=== PATIENT | female | born 1940 | race Caucasian/White ===

== ENCOUNTER 2017-06-05 12:25 | Inpatient (IN) | payer MEDICARE, MEDICAID ==
[~2017-06-05] VITALS: Ht 152.4 cm; Wt 44.9 kg
--- NOTE | 2017-06-05 12:47 | NUR ---
BIB FAMILY C/O FEELING WEAK, DIZZY AND NAUSEATED X 3 DAYS, NAD NOTED, VSS, RESP EVEN AND UNLABORED, WAITING FOR MD MOISE.
[2017-06-05 13:16] LABS: BASOPHILS % (AUTO) 0.3 % (0.0-2.0); EOSINOPHILS % (AUTO) 0.2 % (0.0-6.0); HEMATOCRIT 39 % (33-45); HEMOGLOBIN 13.3 g/dL (11.5-14.8); LYMPHOCYTES # (AUTO) 1.7 /CMM (0.8-4.8); LYMPHOCYTES % (AUTO) 27.4 % (20.0-44.0); MEAN CORPUSCULAR HEMOGLOBIN 30 PG (26.0-33.0); MEAN CORPUSCULAR HGB CONC 34 g/dl (31.0-36.0); MEAN CORPUSCULAR VOLUME 88 fL (82-100); MONOCYTES # (AUTO) 0.3 /CMM (0.1-1.30); MONOCYTES % (AUTO) 5.1 % (2.0-12.0); NEUTROPHILS # (AUTO) 4.1 /CMM (1.8-8.9); PLATELET COUNT (AUTO) 257 /CMM (150-450); RDW COEFFICIENT OF VARIATION 14.1 (11.5-15.0); WHITE BLOOD COUNT (AUTO) 6.1 K/uL (4.3-11.0)
[2017-06-05 13:26] LABS: INR 0.95 (0.87-1.13); PROTHROMBIN TIME 9.9 SECS (9.5-12.7)
[2017-06-05 13:28] LABS: ALANINE AMINOTRANSFERASE 20 U/L (12-78); ALBUMIN 3.8 g/dL (3.4-5.0); ALKALINE PHOSPHATASE 53 U/L (46-116); ASPARTATE AMINOTRANSFERASE 11 U/L (15-37); BILIRUBIN,DIRECT 0.3 mg/dL (0.0-0.2); BILIRUBIN,TOTAL 1.7 mg/dL (0.2-1.0); CALCIUM, SERUM 9.3 mg/dL (8.5-10.1); CARBON DIOXIDE 20 mmol/L (21-32); CHLORIDE 99 mmol/L (98-107); CREATININE 0.7 mg/dL (0.6-1.3); SODIUM SERUM 134 mmol/L (136-145); TOTAL PROTEIN, SERUM 7.5 g/dL (6.4-8.2); UREA NITROGEN, BLOOD 23 mg/dL (7-18)
[2017-06-05] MEDS ORDERED: MAG HYDROX/AL HYDROX/SIMETH 30 ML UDC ONE (13:28)
[2017-06-05 13:29] LABS: GLUCOSE 408 mg/dL (74-106)
[2017-06-05] MEDS ORDERED: ACETAMINOPHEN 325 MG TABLET ONE (13:29)
[2017-06-05 13:30] LABS: TROPONIN I < 0.017 ng/mL (0.00-0.056)
[2017-06-05] MEDS ORDERED: IV NS 0.9% 1,000 ML BAG IV ONE (13:30)
[2017-06-05] MEDS ORDERED: INSULIN REGULAR, HUMAN 100 UNIT/ML 10 ML VIAL SQ ONE (13:30)
[2017-06-05] MEDS ORDERED: ACETAMINOPHEN 325 MG TABLET PO ONE (13:30)
[2017-06-05] MEDS ORDERED: MAG HYDROX/AL HYDROX/SIMETH 30 ML UDC PO ONE (13:30)
[2017-06-05] MEDS ORDERED: INSULIN REGULAR, HUMAN 100 UNIT/ML 10 ML VIAL ONE (13:35)
[2017-06-05] MEDS ORDERED: ROSU5TAB PO (13:37)
[2017-06-05] MEDS ORDERED: METO25TA6 PO (13:37)
[2017-06-05] MEDS ORDERED: METF500T PO (13:37)
--- NOTE | 2017-06-05 15:11 | NUR ---
REPORT TO KYLIE.
[2017-06-05] MEDS ORDERED: INSU100V9 SQ (15:13)
--- NOTE | 2017-06-05 16:28 | NUR ---
RN NOTES RECEIVED FROM ER AT 3:30 PM A 77 YEAR OLD FEMALE ACCOMPANIED BY SON WITH CC OF DIZZINESS FOR 3 DAYS PRIOR TO ADMISSION. PLACED COMFORTABLY ON BED. DENIES HEADACHE BUT STILL WITH DIZZINESS. NO PAIN. WITH IV ACCESS ON LEFT FOREARM GG 20 PATENT AND INTACT. ROUTINE ADMISSION CARE DONE. VITAL SIGNS TAKEN AND RECORDED. SKIN CHECK DONE, INTACT. REMINDED TO USE CALL LIGHT IF ASSISTANCE IS NEEDED. EXPLAINED ABOUT SAFETY PRECAUTION. NOTIFIED DR ALVARADO FOR ADMITTING ORDERS. KEPT COMFORTABLE.
[2017-06-05] MEDS ORDERED: ACETAMINOPHEN 325 MG TABLET PO PRN (17:30)
[2017-06-05] MEDS ORDERED: ZOLPIDEM TARTRATE 5 MG TABLET PO PRN (17:30)
[2017-06-05] MEDS ORDERED: HYDROCODONE/APAP 5/325MG 1 EACH TABLET PO PRN (17:30)
[2017-06-05] MEDS ORDERED: Z GUARD REMEDY 2 OZ OINT TP PRN (17:30)
[2017-06-05] MEDS ORDERED: MAG HYDROX/AL HYDROX/SIMETH 30 ML UDC PO PRN (17:30)
[2017-06-05] MEDS ORDERED: MAGNESIUM HYDROXIDE 30 ML UDC PO PRN ×2 (17:30→21:00)
[2017-06-05] MEDS ORDERED: DEXTROSE 50%-WATER 50 ML DISP.SYRIN IV PRN (17:30)
[2017-06-05] MEDS: IV NS 0.9% 1,000 ML IV PRN (17:40)
[2017-06-05] MEDS: BLOOD SUGAR DIAGNOSTIC 1 EACH STRIP IN SCH ×2 (17:40→21:18)
[2017-06-05] MEDS: PANTOPRAZOLE 40 MG VIAL IV SCH (18:31)
[2017-06-05] MEDS: METFORMIN 500 MG TABLET PO SCH (18:31)
[2017-06-05] MEDS: *INSULIN REGULAR(HUMULIN R)HUM 100 UNIT/ML VIAL SQ PRN ×2 (18:33→21:32)
--- NOTE | 2017-06-05 18:36 | NUR ---
RN NOTES RESTING FAIRLY WITH NO COMPLAINT AT THIS TIME. NEEDS ANTICIPATED. NO UNTOWARD SYMPTOM NOTED WITHIN THE SHIFT. WILL ENDORSE TO PLASTERER SPOT NURSE FOR CONTINUITY OF CARE.
[2017-06-05] MEDS: INSULIN REGULAR, HUMAN 100 UNIT/ML 3 ML VIAL SQ PRN (19:23)
--- NOTE | 2017-06-05 19:40 | NUR ---
ASSISTANT GUEST SERVICES MANAGER INITIAL NOTES REPORT WAS RECEIVED FROM DAY NURSE, FAMILY AT BEDSIDE. NO SIGNS OF SOB OR DISTRESS. BREATHING EVENLY AND UNLABORED ON ROOM AIR. PT COMPLAINTS OF NAUSEA AND DIZZINESS, MEDS TO BE GIVEN. TELE MONITOR SHOWING SR 76. IV ACCESS IS INTACT AND PATENT WITH FLUIDS INFUSING. BED ALARM IS ON. BED IS IN LOW AND LOCKED POSITION, CALL LIGHT WITHIN REACH. WILL CONTINUE TO MONITOR TO PT.
[2017-06-05] MEDS: MECLIZINE HCL 25 MG TABLET PO SCH (19:57)
[2017-06-05 20:00] VITALS: BP 136/69
[2017-06-05] MEDS ORDERED: MECLIZINE HCL 25 MG TABLET PO SCH (21:00)
[2017-06-05] MEDS: ONDANSETRON HCL/PF 4 MG/2 ML VIAL IVP PRN (21:37)
[2017-06-06] VITALS (8 sets, daily range): BP systolic 127–155; BP diastolic 55–65
--- NOTE | 2017-06-06 00:28 | NUR ---
telephone triage nurse notes contacted dr ray in regards to patients hr of 44-46 with pr interval of 46 and showing 1st degree block. dr ray said no further action is needed
[2017-06-06] MEDS ORDERED: MECLIZINE HCL 25 MG TABLET ONE (05:28)
[2017-06-06] MEDS: MECLIZINE HCL 25 MG TABLET PO SCH ×3 (05:31→21:37)
[2017-06-06] MEDS: BLOOD SUGAR DIAGNOSTIC 1 EACH STRIP IN SCH ×4 (06:09→21:38)
[2017-06-06] MEDS: INSULIN REGULAR, HUMAN 100 UNIT/ML 3 ML VIAL SQ PRN ×2 (06:13→12:03)
[2017-06-06] MEDS: IV NS 0.9% 1,000 ML IV PRN ×2 (06:43→21:38)
--- NOTE | 2017-06-06 06:46 | NUR ---
LAND CONSERVATION SPECIALIST CLOSING NOTES PT IS IN BED AWAKE AND ALERT. NO SIGNS OF SOB OR DISTRESS. DIZZINESS HAS IMPROVED. TELE MONITOR SHOWING SB 46. IV IS INTACT AND PATENT INFUSING WITH NS @ 75 ML/HR. ALL NEEDS WERE ANTICIPATED AND MET. WILL ENDORSE TO DAY SHIFT.
[2017-06-06 07:19] LABS: BASOPHILS % (AUTO) 0.3 % (0.0-2.0); EOSINOPHILS % (AUTO) 0.1 % (0.0-6.0); HEMATOCRIT 37 % (33-45); HEMOGLOBIN 12.8 g/dL (11.5-14.8); LYMPHOCYTES # (AUTO) 1.6 /CMM (0.8-4.8); LYMPHOCYTES % (AUTO) 17.5 % (20.0-44.0); MEAN CORPUSCULAR HEMOGLOBIN 31 PG (26.0-33.0); MEAN CORPUSCULAR HGB CONC 35 g/dl (31.0-36.0); MEAN CORPUSCULAR VOLUME 89 fL (82-100); MONOCYTES # (AUTO) 0.4 /CMM (0.1-1.30); NEUTROPHILS # (AUTO) 7.1 /CMM (1.8-8.9); NEUTROPHILS % (AUTO) 78.1 % (43.0-81.0); PLATELET COUNT (AUTO) 238 /CMM (150-450); RDW COEFFICIENT OF VARIATION 13.6 (11.5-15.0); RED BLOOD CELL COUNT(AUTO) 4.13 MIL/uL (4.0-5.2); WHITE BLOOD COUNT (AUTO) 9.1 K/uL (4.3-11.0)
[2017-06-06] MEDS: ONDANSETRON HCL/PF 4 MG/2 ML VIAL IVP PRN (07:35)
[2017-06-06 07:37] LABS: CHOLESTEROL 117 mg/dL (<200); HDL CHOLESTEROL 41 mg/dL (40-60); LDL 54 mg/dL (0-99); TRIGLYCERIDES 185 mg/dL (30-150)
[2017-06-06 07:38] LABS: IRON, SERUM 66 ug/dl (50-175); TOTAL IRON BINDING CAPACITY 241 ug/dl (250-450)
[2017-06-06 07:42] LABS: CALCIUM, SERUM 8.2 mg/dL (8.5-10.1); CREATININE 0.6 mg/dL (0.6-1.3); GLUCOSE 265 mg/dL (74-106); PHOSPHORUS 3.6 mg/dL (2.5-4.9); UREA NITROGEN, BLOOD 14 mg/dL (7-18)
[2017-06-06 07:59] LABS: CARBON DIOXIDE 22 mmol/L (21-32); CHLORIDE 103 mmol/L (98-107); POTASSIUM 4.1 mmol/L (3.5-5.1); SODIUM SERUM 135 mmol/L (136-145)
--- NOTE | 2017-06-06 08:07 | NUR ---
HVAC TECHNICIAN RESIDENTIAL OPENING NOTES PATIENT IS ALERT AND ORIENTED. PATIENT IS NAUSEAS AND RECEIVED 4MG/2ML OF ZOFRAN IVP PRN. WILL CONTINUE TO MONITOR FOR NAUSEA AND VOMITING. BED IS LOCKED AND LOWERED.
[2017-06-06] MEDS: METFORMIN 500 MG TABLET PO SCH ×2 (09:14→17:02)
[2017-06-06] MEDS: glipiZIDE 5 MG TABLET PO SCH ×2 (09:25→17:02)
[2017-06-06] MEDS: LOSARTAN POTASSIUM 50 MG TABLET PO SCH (12:21)
--- NOTE | 2017-06-06 12:33 | NUR ---
PT'S SON,RONA ARRIVED AND DISCUSSED THE PACEMAKER PLACEMENT PROCEDURE FOR TOMORROW BY DR BAXTER.RONA STATED THAT HE WILL THINK ABOUT IT.
[2017-06-06] MEDS: PANTOPRAZOLE 40 MG VIAL IV SCH (18:27)
--- NOTE | 2017-06-06 18:51 | NUR ---
HAND REAMER CLOSING NOTES PATIENT IS ALERT AND ORIENTED. SON AND DAUGHTER ARE AT BEDSIDE. BED IS LOCKED AND LOWERED. BEDSIDE RAILS ARE UP X2. WILL ENDORSE CARE TO PRIMER PRESS OPERATOR NURSE FOR VIDYA.
--- NOTE | 2017-06-06 19:00 | NUR ---
PLASTIC SHEETING CUTTER OPENING NOTES PATIENT RESTING IN BED A/O X 3, NO ACUTE DISTRESS NOTED. BREATHING EVEN AND UNLABORED, NO SOB NOTED. SAFETY MEASURES IN PLACE, BED LOCKED AND IN LOWEST POSITION, CALL LIGHT IN REACH. WILL CONTINUE TO MONITOR.
[2017-06-06] MEDS: *INSULIN REGULAR(HUMULIN R)HUM 100 UNIT/ML VIAL SQ PRN (21:47)
[2017-06-07] VITALS (8 sets, daily range): BP systolic 131–156; BP diastolic 62–75
[2017-06-07] MEDS: glipiZIDE 5 MG TABLET PO SCH ×2 (07:30→18:03)
[2017-06-07] MEDS: BLOOD SUGAR DIAGNOSTIC 1 EACH STRIP IN SCH ×4 (07:30→21:31)
--- NOTE | 2017-06-07 08:00 | NUR ---
ENGINEER AND GEOLOGIST OPENING NOTES PATIENT IS ALERT AND ORIENTED. PT IS RESTING IN BED. BEDSIDE RAILS ARE UP X2. BED IS LOCKED AND LOWERED. PATIENT IS NPO SINCE MIDNIGHT. AWAITING PACEMAKER SURGERY TODAY AT 1230. INFORMED CONSENT IS SIGNED. WILL CONTINUE TO MONITOR.
--- NOTE | 2017-06-07 08:45 | NUR ---
AUTOMATIC MOUNTER NOTES SPOKE TO DR. BAXTER. IS AWARE THAT PATIENT HAD AN EPISODE OF SECOND DEGREE HEART BLOCK DURING GROUND CONTROL APPROACH TECHNICIAN. PATIENT IS SCHEDULED FOR PACEMAKER SURGERY TODAY AT 1230.
[2017-06-07] MEDS: LOSARTAN POTASSIUM 50 MG TABLET PO SCH (09:00)
[2017-06-07] MEDS: METFORMIN 500 MG TABLET PO SCH ×2 (09:00→18:02)
[2017-06-07] MEDS: IV NS 0.9% 1,000 ML IV PRN ×2 (09:40→21:33)
--- NOTE | 2017-06-07 09:47 | NUR ---
MACHINE SETTER SHEET METAL NOTES SPOKE WITH SURGERY TEAM. THE WILL COME AND TAKE THE PATIENT TO SURGERY AT AROUND 1215. IV ON LEFT AC #20. PATIENT IS AWAKE AND ALERT.
[2017-06-07] MEDS: MECLIZINE HCL 25 MG TABLET PO SCH ×2 (12:22→21:30)
--- NOTE | 2017-06-07 12:30 | NUR ---
PATIENT WAS TAKEN TO OR FOR PACEMAKER PLACEMENT.
[2017-06-07] MEDS ORDERED: LIDOCAINE 1% INJ 50 ML MDV IJ ONE (12:34)
[2017-06-07] MEDS ORDERED: IOHEXOL 50 ML IV ONE (12:34)
[2017-06-07 12:46] LABS: CARBON DIOXIDE 24 mmol/L (21-32); CHLORIDE 108 mmol/L (98-107); CREATININE 0.4 mg/dL (0.6-1.3); GLUCOSE 165 mg/dL (74-106); MAGNESIUM 1.7 mg/dL (1.8-2.4); PHOSPHORUS 3.4 mg/dL (2.5-4.9); POTASSIUM 3.5 mmol/L (3.5-5.1); SODIUM SERUM 141 mmol/L (136-145); UREA NITROGEN, BLOOD 8 mg/dL (7-18)
[2017-06-07] MEDS ORDERED: FENTANYL PF 100MCG/2ML AMPUL ONE (12:47)
[2017-06-07] MEDS ORDERED: MIDAZOLAM HCL 2 MG/2ML VIAL ONE (12:47)
[2017-06-07] MEDS ORDERED: Magnesium 1GM/D5W 100ML PREMIX 100 ML IV SCH (14:05)
--- NOTE | 2017-06-07 14:20 | NUR ---
PT ARRIVED BACK FROM OR. PATIENT IS AWAKE AND ALERT. PATIENT IS STABLE. VITAL SIGNS ARE WNL. WILL CONTINUE TO MONITOR.
[2017-06-07 15:04] LABS: ALANINE AMINOTRANSFERASE 18 U/L (12-78); ALBUMIN 3.2 g/dL (3.4-5.0)
[2017-06-07] MEDS: Magnesium 1GM/D5W 100ML PREMIX 100 ML IV SCH ×2 (15:26→15:50)
--- NOTE | 2017-06-07 15:30 | NUR ---
CLARIFIED MG IV ORDERS (DOUBLE ENTRY) OF 2 BAGS WITH A TOTAL OF [address] ALVARADO WHO STATED THAT 2 BAGS OF MG IS ENOUGH AND CARRIED OUT.
[2017-06-07 15:36] LABS: ASPARTATE AMINOTRANSFERASE 14 U/L (15-37); BILIRUBIN,TOTAL 1.3 mg/dL (0.2-1.0); TOTAL PROTEIN, SERUM 6.3 g/dL (6.4-8.2)
[2017-06-07 15:47] LABS: ALKALINE PHOSPHATASE 40 U/L (46-116)
[2017-06-07] MEDS: POTASSIUM CHLORIDE 20 MEQ TAB.PRT.SR PO SCH ×2 (15:50→18:01)
[2017-06-07] MEDS: METOPROLOL TARTRATE 50 MG TABLET PO SCH ×2 (15:55→21:30)
[2017-06-07] MEDS ORDERED: POTASSIUM CHLORIDE 20 MEQ TAB.PRT.SR PO SCH (18:00)
[2017-06-07] MEDS: PANTOPRAZOLE 40 MG VIAL IV SCH (18:33)
--- NOTE | 2017-06-07 18:46 | NUR ---
EMPLOYEE COMMUNICATIONS MANAGER CLOSING NOTES PT IS ALERT AND AWAKE. IN NO APPARENT DISTRESS. BEDSIDE RAILS ARE UP X2. BED IS LOCKED AND LOWERED. WILL ENDORSE CARE TO READING INTERVENTIONIST NURSE FOR VIDYA.
--- NOTE | 2017-06-07 19:00 | NUR ---
LANDSCAPE CREW LEADER OPENING NOTES PATIENT RESTING IN BED A/O X 3, NO ACUTE DISTRESS NOTED. BREATHING EVEN AND UNLABORED, NO SOB NOTED. ATTACH TO TELE MONITOR, SAFETY MEASURES IN PLACE, BED LOCKED AND IN LOWEST POSITION, CALL LIGHT IN REACH. WILL CONTINUE TO MONITOR.
[2017-06-07] MEDS: *INSULIN REGULAR(HUMULIN R)HUM 100 UNIT/ML VIAL SQ PRN (21:38)
[2017-06-08] VITALS: BP 144/73
[2017-06-08 04:00] VITALS: BP 134/64
[2017-06-08] MEDS: MECLIZINE HCL 25 MG TABLET PO SCH ×2 (05:26→13:00)
[2017-06-08] MEDS: BLOOD SUGAR DIAGNOSTIC 1 EACH STRIP IN SCH ×2 (05:31→12:53)
[2017-06-08] MEDS: INSULIN REGULAR, HUMAN 100 UNIT/ML 3 ML VIAL SQ PRN ×2 (05:32→13:09)
--- NOTE | 2017-06-08 06:33 | NUR ---
MISDRAW HAND CLOSING NOTES PATIENT COMFORTABLY IN BED ASLEEP AND EASILY AWAKEN, HEAD OF BED ELEVATED FOR BETTER LUNG EXPANSION AND BETTER CIRCULATION, ATTACH TO TELE MONITOR, ALERT AND VERBALLY X 4 RESPONSIVE DENIES PAIN OR DISTRESS, TOLERATING ROOM AIR 02 SAT AT 98% NS RUNNING AT 100 MLS/ HR, TOLERATED WELL. IV SITE INTACT WITH NO S/S OF INFILTRATION NOTED. RESPONDS APPROPRIATELY TO VERBAL STIMULI, RESPIRATIONS EVEN UNLABORED BREATH SOUNDS. GOOD SKIN CARE PROVIDED. PATIENT IN STABLE CONDITION WITH NO SOB NO S/S OF DISTRESS NO NAUSEA AND VOMITING NO HEADACHE NO PAIN, NO COMPLAIN OF CHEST PAIN THROUGHOUT THE SHIFT. SAFE HAZARD FREE ENVIRONMENT. NEEDS ATTENDED AND ANTICIPATED, NURSING CARE RENDERED, KEPT CLEAN AND DRY AND COMFORTABLE. ALL DUE MEDS WAS GIVEN. FREQUENT VISUAL CHECK EVERY 2 HOURS, BED LOWERED AND LOCKED, SR X2 FOR SAFETY AND WILL ENDORSE CONTINUE PLAN OF CARE.
[2017-06-08 07:07] VITALS: BP 126/76
--- NOTE | 2017-06-08 07:35 | NUR ---
RN/TELE OPENING NOTES RECEIVED PT. IN BED A&OX4. BREATHING UNLABORED, AND EVENLY ON ROOM AIR. NO S/S OF ACUTE DISTRESS. IV FLUIDS RUNNING AT 100 ML/HR. PT. HAS A LEFT WOUNDS DRESSING ON LEFT CHEST POST-OP PERMANENT PACEMAKER PLACEMENT. PT. IS WEARING TELE MONITOR, READING IS V-PACING AT 81 BPM. PT. IS WEARING A LEFT ARM SLING TO KEEP LEFT ARM IMMOBILE POST SURGERY. BED IS IN LOWEST LOCKED POSITION, 2 SIDE RAILS UP, AND INSTRUCTED PT. TO USE CALL LIGHT FOR ASSISTANCE. WILL CONTINUE TO ASSESS AND MONITOR.
[2017-06-08 08:00] VITALS: BP 145/71
[2017-06-08] MEDS ORDERED: GABA-532 PO (08:21)
[2017-06-08] MEDS ORDERED: METF500T4 PO (08:21)
[2017-06-08] MEDS ORDERED: GLIP5TAB13 PO (08:21)
[2017-06-08] MEDS ORDERED: METO-306 PO (08:21)
[2017-06-08] MEDS: glipiZIDE 5 MG TABLET PO SCH (08:49)
[2017-06-08] MEDS: LOSARTAN POTASSIUM 50 MG TABLET PO SCH (08:49)
[2017-06-08 08:50] VITALS: BP 145/71
[2017-06-08] MEDS: METOPROLOL TARTRATE 50 MG TABLET PO SCH (08:50)
[2017-06-08] MEDS: METFORMIN 500 MG TABLET PO SCH (11:00)
--- NOTE | 2017-06-08 15:30 | NUR ---
RN NOTES DISCHARGE PT. WAS DISCHARGE HOME IN MEDICALLY STABLE CONDITION. PT. LEFT IN WHEEL CHAIR WITH FAMILY ALONG SIDE BY PRIVATE CAR. PT. WENT HOME WITH LEFT CHEST WALL PERMANENT PACEMAKER IMPLANT, AND ARM SLING ON LEFT ARM. ID BAND AND IV WAS REMOVED WITHOUT COMPLICATIONS. PT. AND FAMILY WAS PROVIDED DISCHARGE EDUCATION, AND INSTRUCTIONS ON PACEMAKER, MEDICATIONS AND VERBALIZED UNDERSTANDING. PT.'S PRESCRIPTION WAS CALLED IN BY CHARGE NURSE, AND FAMILY CONFIRMED THEY WILL SPORTS MANAGEMENT INTERNSHIP. ALL QUESTIONS WERE ANSWERED. DR. BAXTER'S INFORMATION WAS PROVIDED FOR FOLLOW UP.
== END 2017-06-08 16:00 | disposition home or self-care (01) | DRG 243 ==
LOC: ER 12:29 → MED 15:20 → TELE 20:16 → MED 06-08 08:36
PROVIDERS: ADMIT Internal Medicine; ATTEND Internal Medicine
PROC: 02H63JZ Insertion of Pacemaker Lead into Right Atrium, Percutaneous Approach (ICD-10-PCS; 2017-06-07)
PROC: 02HK3JZ Insertion of Pacemaker Lead into Right Ventricle, Percutaneous Approach (ICD-10-PCS; 2017-06-07)
PROC: 0JH606Z Insertion of Pacemaker, Dual Chamber into Chest Subcutaneous Tissue and Fascia, Open Approach (ICD-10-PCS; principal; 2017-06-07 13:08)
DX: I49.5 Sick sinus syndrome (principal); I44.2 Atrioventricular block, complete; E44.0 Moderate protein-calorie malnutrition; E11.65 Type 2 diabetes mellitus with hyperglycemia; E87.1 Hypo-osmolality and hyponatremia; Z68.1 Body mass index [BMI] 19.9 or less, adult; E83.42 Hypomagnesemia; Z91.81 History of falling; R74.0 Nonspecific elevation of levels of transaminase and lactic acid dehydrogenase [LDH]; G90.8 Other disorders of autonomic nervous system; Z79.84 Long term (current) use of oral hypoglycemic drugs
CPT/HCPCS: 36415; 70450-TC; 71010-TC; 76700-TC; 80048-TC; 80053-TC; 80061-TC; 80076-TC; 82962-TC; 83540-TC; 83735-TC; 84100-TC; 84443-TC; 84484-TC; 85025-TC; 85730-TC; 93307-TC; A4565; A4606; C9113; J0690; J1815; J2250; J2405; J2704; J3010; J3475; J3490; J7030; J8597; Q9967; Z7610

== ENCOUNTER 2017-07-16 09:31 | Outpatient (CLI) | payer MEDICARE, MEDICAID ==
[~2017-07-16 09:31] MED LIST: GABA-532 PO; GLIP5TAB13 PO; METF500T PO; METF500T4 PO; METO-306 PO; ROSU5TAB PO
[2017-07-16 10:19] LABS: CARBON DIOXIDE 28 mmol/L (21-32); CHLORIDE 103 mmol/L (98-107); CREATININE 0.9 mg/dL (0.6-1.3); GLUCOSE 255 mg/dL (74-106); POTASSIUM 5.2 mmol/L (3.5-5.1); SODIUM SERUM 139 mmol/L (136-145); UREA NITROGEN, BLOOD 22 mg/dL (7-18)
[2017-07-16 10:24] LABS: CHOLESTEROL 141 mg/dL (<200); HDL CHOLESTEROL 52 mg/dL (40-60); LDL 67 mg/dL (0-99); TRIGLYCERIDES 172 mg/dL (30-150)
[2017-07-16 10:26] LABS: CALCIUM, SERUM 10.8 mg/dL (8.5-10.1)
== END 2017-07-16 23:59 | disposition home or self-care (01) ==
LOC: LAB 09:31
PROVIDERS: ATTEND Internal Medicine Interventional Cardiology
DX: I10 Essential (primary) hypertension (principal); E11.9 Type 2 diabetes mellitus without complications; E78.5 Hyperlipidemia, unspecified
CPT/HCPCS: 36415; 80048-TC; 80061-TC; 82040-TC

== ENCOUNTER 2019-01-19 20:30 | Inpatient (IN) | payer MEDICARE, MEDICAID ==
[~2019-01-19] VITALS: Ht 152.4 cm; Wt 54.2 kg
[~2019-01-19 20:30] MED LIST changes: +METF-440 PO; -METF500T4 PO; -METO-306 PO; +METO-358 PO
--- NOTE | 2019-01-19 20:50 | NUR ---
BIB SON REPORTED HER SYSTOLIC BP WAS LOW AT HOME (<100) AND HAD HR >100. HAD PACE MAKE PLACEMENT ON MAY 2019 BY SAHIL CARR. POOR APPETITE. OCCASIONAL DIZZINESS, PLACED ON MONITOR, WILL CONT TO MONITOR ,
--- NOTE | 2019-01-19 20:54 | NUR ---
AT THE BED SIDE
--- NOTE | 2019-01-19 21:12 | NUR ---
20G PIV STARTED ON R HAND. BLOOD DRAWN AND SENT TO THE LAB
[2019-01-19 21:18] LABS: BASOPHILS # (AUTO) 0.1 /CMM (0.0-0.2); BASOPHILS % (AUTO) 0.6 % (0.0-2.0); EOSINOPHILS % (AUTO) 0.7 % (0.0-6.0); HEMATOCRIT 42 % (33-45); HEMOGLOBIN 14.5 g/dL (11.5-14.8); LYMPHOCYTES # (AUTO) 2.2 /CMM (0.8-4.8); LYMPHOCYTES % (AUTO) 24.1 % (20.0-44.0); MEAN CORPUSCULAR HGB CONC 35 g/dl (31.0-36.0); MEAN CORPUSCULAR VOLUME 88 fL (82-100); MONOCYTES # (AUTO) 0.5 /CMM (0.1-1.30); MONOCYTES % (AUTO) 5.4 % (2.0-12.0); NEUTROPHILS # (AUTO) 6.2 /CMM (1.8-8.9); NEUTROPHILS % (AUTO) 69.2 % (43.0-81.0); PLATELET COUNT (AUTO) 261 /CMM (150-450); RED BLOOD CELL COUNT(AUTO) 4.75 MIL/uL (4.0-5.2)
[2019-01-19 21:39] LABS: ALANINE AMINOTRANSFERASE 17 U/L (12-78); ALBUMIN 3.7 g/dL (3.4-5.0); ALKALINE PHOSPHATASE 76 U/L (46-116); ASPARTATE AMINOTRANSFERASE 14 U/L (15-37); B-TYPE NATRIURETIC PEPTIDE 1298 PG/ML (0-125); BILIRUBIN,DIRECT 0.1 mg/dL (0.0-0.2); BILIRUBIN,TOTAL 1.2 mg/dL (0.2-1.0); CALCIUM, SERUM 9.2 mg/dL (8.5-10.1); CARBON DIOXIDE 24 mmol/L (21-32); CHLORIDE 99 mmol/L (98-107); CREATININE 0.7 mg/dL (0.6-1.3); POTASSIUM 4.3 mmol/L (3.5-5.1); SODIUM SERUM 134 mmol/L (136-145); UREA NITROGEN, BLOOD 17 mg/dL (7-18)
[2019-01-19 21:41] LABS: GLUCOSE 369 mg/dL (74-106)
--- NOTE | 2019-01-19 21:48 | NUR ---
CALLED [facility] REGARDING CX READING. AWAITING FINAL RESULTS.
[2019-01-19] MEDS ORDERED: INSULIN REGULAR, HUMAN 100 UNIT/ML 10 ML VIAL ONE (22:25)
--- NOTE | 2019-01-19 22:27 | NUR ---
[facility] PAGED, EVALUATION ANALYST
[2019-01-19] MEDS ORDERED: INSULIN REGULAR, HUMAN 100 UNIT/ML 10 ML VIAL SQ ONE (22:30)
--- NOTE | 2019-01-19 22:37 | NUR ---
TELE 328-6
--- NOTE | 2019-01-19 22:50 | NUR ---
CALLED TO GIVE REPORT. RN NOT AVAILABLE. WILL TRY AGAIN
[2019-01-19] MEDS ORDERED: ASPIRIN 81 MG TAB.CHEW ONE (22:57)
[2019-01-19] MEDS ORDERED: ASPIRIN 81 MG TAB.CHEW PO ONE (23:00)
[2019-01-19 23:15] VITALS: BP 122/76
--- NOTE | 2019-01-19 23:18 | NUR ---
PT WAS TRANSFERRED TO [place] [id number] IN STABLE CONDITION UNDER ACLS PROTOCOL
[2019-01-19 23:25] VITALS: BP 122/76
[2019-01-19] MEDS ORDERED: ONDANSETRON HCL/PF 4 MG/2 ML VIAL IVP PRN (23:30)
[2019-01-19] MEDS ORDERED: ZOLPIDEM TARTRATE 5 MG TABLET PO PRN (23:30)
[2019-01-19] MEDS ORDERED: HYDROCODONE/APAP 5/325MG 1 EACH TABLET PO PRN (23:30)
[2019-01-19] MEDS ORDERED: Z GUARD REMEDY 2 OZ OINT TP PRN (23:30)
[2019-01-19] MEDS ORDERED: MAGNESIUM HYDROXIDE 30 ML UDC PO PRN (23:30)
[2019-01-19] MEDS ORDERED: ACETAMINOPHEN 325 MG TABLET PO PRN (23:30)
[2019-01-19] MEDS ORDERED: MAG HYDROX/AL HYDROX/SIMETH 30 ML UDC PO PRN (23:30)
--- NOTE | 2019-01-19 23:55 | NUR ---
RN NOTES ADMITTED A 78 Y/O FEMALE PATIENT, FROM ER TRANSPORTED VIA GURNEY, ALERT ORIENTED X 4, CALM ACCOMPANIED BY HER SON RONA, PATIENT IS BARBADIAN / MALTESE SPEAKING AND UNDERSTAND SOME SINHALA. NO SIGNS OF ACUTE CARDIAC / RESPIRATORY DISTRESS, DR. MENESES IS IN IN THE UNIT, INITIAL ADMISSION ASSESSMENT, SKIN ASSESSMENT DONE, PATIENT C/O ABDOMINAL PAIN, LAST BM WAS 01/19/19 IN THE MORNING, REPOSITIONED FOR COMFORT, SKIN IS INTACT, ORIENTED TO UNIT AND ROOM AND THE USE OF CALL LIGHT. SAFETY MEASURES IN PLACE. WILL MONITOR ACCORDINGLY.
[2019-01-20] MEDS ORDERED: *INSULIN REGULAR(HUMULIN R)HUM 100 UNIT/ML VIAL SQ PRN (00:30)
[2019-01-20] MEDS ORDERED: DEXTROSE 50%-WATER 50 ML DISP.SYRIN IV PRN (00:30)
[2019-01-20] MEDS: PANTOPRAZOLE 40 MG TABLET.DR PO SCH ×2 (00:54→07:30)
[2019-01-20] MEDS: IV 1/2NS 1000 ML 1,000 ML IV SCH ×2 (00:57→14:55)
--- NOTE | 2019-01-20 02:00 | NUR ---
RN NOTES PATIENT MOVED FROM ROOM 328-1 TO 313-2.
[2019-01-20 04:00] VITALS: BP 114/61
[2019-01-20 04:31] VITALS: BP 114/61
--- NOTE | 2019-01-20 06:00 | NUR ---
RN NOTES PATIENT IS SLEEPING COMFORTABLY, ALL NEEDS ATTENDED AND MET, KEPT CLEAN WARM DRY AND COMFORTABLE, TROPONIN LEVEL FROM 0.086 TO 0.158, MD MADE AWARE, NO ORDERS AT THIS TIME. NO SIGNS OF APPARENT DISTRESS, TELE MONITOR READS SINUS VPACING 118 - 120. SAFETY MEASURES IN PLACE. CALL LIGHT WITHIN EASY REACH.
[2019-01-20 06:45] LABS: BASOPHILS % (AUTO) 0.5 % (0.0-2.0); EOSINOPHILS % (AUTO) 0.7 % (0.0-6.0); HEMATOCRIT 38 % (33-45); HEMOGLOBIN 13.4 g/dL (11.5-14.8); LYMPHOCYTES # (AUTO) 2.6 /CMM (0.8-4.8); LYMPHOCYTES % (AUTO) 31.3 % (20.0-44.0); MEAN CORPUSCULAR HGB CONC 36 g/dl (31.0-36.0); MEAN CORPUSCULAR VOLUME 86 fL (82-100); MONOCYTES # (AUTO) 0.5 /CMM (0.1-1.30); MONOCYTES % (AUTO) 5.8 % (2.0-12.0); NEUTROPHILS # (AUTO) 5.1 /CMM (1.8-8.9); NEUTROPHILS % (AUTO) 61.7 % (43.0-81.0); PLATELET COUNT (AUTO) 262 /CMM (150-450); RED BLOOD CELL COUNT(AUTO) 4.37 MIL/uL (4.0-5.2); WHITE BLOOD COUNT (AUTO) 8.2 K/uL (4.3-11.0)
[2019-01-20 07:03] LABS: CHOLESTEROL 212 mg/dL (<200); HDL CHOLESTEROL 35 mg/dL (40-60); LDL 134 mg/dL (0-99); THYROID STIMULATING HORMONE 2.348 uIU/mL (0.358-3.74); TRIGLYCERIDES 283 mg/dL (30-150)
[2019-01-20 07:09] LABS: CALCIUM, SERUM 8.3 mg/dL (8.5-10.1); CARBON DIOXIDE 22 mmol/L (21-32); CHLORIDE 104 mmol/L (98-107); CREATININE 0.6 mg/dL (0.6-1.3); GLUCOSE 143 mg/dL (74-106); MAGNESIUM 1.8 mg/dL (1.8-2.4); PHOSPHORUS 3.7 mg/dL (2.5-4.9); POTASSIUM 3.7 mmol/L (3.5-5.1); SODIUM SERUM 138 mmol/L (136-145); UREA NITROGEN, BLOOD 13 mg/dL (7-18)
--- NOTE | 2019-01-20 07:30 | NUR ---
RN NOTES PATIENT IS RESTING COMFORTABLY, NO APPARENT DISTRESS NOTED, ENDORSED TO AM NURSE FOR CONTINUITY OF CARE.
--- NOTE | 2019-01-20 07:30 | NUR ---
TELE/RN OPENING NOTE THE PATIENT IS RECEIVED IN BED. ALERT AND ORIENTED X4. ABLE TO MAKE NEEDS KNOWN VERBALLY. IN ROOM AIR AND DENIES SOB. RESPIRATION REGULAR AND UNLABORED. DENIES PAIN. RIGHT HAND G 20 1/2 NS INFUSING AT 75ML/HR AND NO S/S INFILTRATION. BED LOW AND LOCKED. SIDE RAILS UP X3. CALL LIGHT WITHIN REACH. WILL CONTINUE TO MONITOR.
[2019-01-20 08:00] VITALS: BP 133/63
[2019-01-20] MEDS ORDERED: GLIP5TAB13 PO (08:42)
[2019-01-20] MEDS ORDERED: ROSU10TA2 PO (08:42)
[2019-01-20] MEDS: ASPIRIN 81 MG TAB.CHEW PO SCH (09:00)
[2019-01-20] MEDS: BLOOD SUGAR DIAGNOSTIC 1 EACH STRIP VI SCH ×4 (09:15→21:18)
--- NOTE | 2019-01-20 09:15 | NUR ---
TELE/RN NOTE BLOOD SUGAR IS 178 BUT THE PATIENT REFUSED INSULIN. EXPLAINED RISKS AND BENEFITS BUT THE PATIENT REFUSED.
[2019-01-20] MEDS ORDERED: METOPROLOL SUCCINATE 50 MG TAB.SR.24H PO SCH (11:30)
[2019-01-20] MEDS ORDERED: K PHOS NEUTRAL 250 MG TABLET PO ONE (12:00)
[2019-01-20] MEDS: INSULIN REGULAR, HUMAN 100 UNIT/ML 3 ML VIAL SQ PRN ×2 (12:18→17:42)
[2019-01-20] MEDS: GABAPENTIN 100 MG CAPSULE PO SCH ×2 (12:20→17:16)
[2019-01-20] MEDS: METOPROLOL SUCCINATE 50 MG TAB.SR.24H PO SCH (12:26)
--- NOTE | 2019-01-20 14:00 | NUR ---
TELE/RN NOTE DR BAXTER WERE MADE AWARE THAT THE PATIENT`S HR HAS EPISODES OF GOING HIGH 200. DR BAXTER SAID HE WILL ARRANGE PACEMAKER INTERROGATION. NO OTHER ORDERS.
[2019-01-20 16:00] VITALS: BP 106/61
--- NOTE | 2019-01-20 18:13 | NUR ---
TELE/RN CLOSING NOTE THE PATIENT ALERT AND ORIENTED X4. IN ROOM AIR AND DENIES SOB. RESPIRATION REGULAR AND UNLABORED. DENIES PAIN. THE PATIENT IN NO APPARENT DISTRESS. EXTERNAL TELE BOX READING IS SR 92 V PACING. RIGHT HAND G 20 PATENT AND 1/2 NS INFUSING AT 75ML/HR AND NO S/S INFILTRATION NOTED. BED LOW AND LOCKED. SIDE RAILS UP X3. CALL LIGHT WITHIN REACH. WILL ENDORSE TO SUPERVISOR CORE DRILLING.
--- NOTE | 2019-01-20 19:40 | NUR ---
FLIGHT SURGEON OPENING NOTES RECEIVED PATIENT IN BED AWAKE, ALERT AND ORIENTED X3, VERBALLY RESPONSIVE, ABLE TO MAKE NEEDS KNOWN. BREATHING EVEN AND UNLABORED. NO SOB NOTED. TOLERATING ROOM AIR. CURRENTLY WITH NO COMPLAINTS OF PAIN OR DISCOMFORT. NO FACIAL GRIMACING. DENIES CHEST PAIN. IV ON RIGHT HAND INTACT AND PATENT WITH IVF INFUSING. SKIN DRY AND WARM TO TOUCH. AFEBRILE. ALL OTHER NEEDS MET. SAFETY MEASURES IN PLACE. CALL LIGHT WITHIN REACH. WILL CONTINUE TO MONITOR.
[2019-01-20 20:21] VITALS: BP 127/66
[2019-01-20] MEDS ORDERED: INSULIN GLARGINE, 100 UNIT/ML CARTRIDGE SQ SCH (22:00)
--- NOTE | 2019-01-20 22:59 | NUR ---
MARRIAGE THERAPIST NOTES PAGED DR. MARIN TO RELAY TROPONIN RESULT OF 0.332. ELEVATED FROM PREVIOUS ONE OF 0.158. PATIENT IS SLEEPING IN BED. DENIES CHEST PAIN. SR 87 WITH OCCASIONAL PVC ON TELE MONITOR. BP 112/61 HR 87. AWAITING CALL BACK FROM MD. WILL CONTINUE TO MONITOR.
[2019-01-20 23:13] LABS: APPEARANCE,URINE Clear (CLEAR); BILIRUBIN,URINE Negative (NEGATIVE); BLOOD, URINE Negative Ery/uL (NEGATIVE); COLOR,URINE Yellow (YELLOW); KETONES,URINE Negative (NEGATIVE); LEUKOCYTE ESTERASE ,URINE Negative (NEGATIVE); NITRITE, URINE Negative (NEGATIVE); PROTEIN,URINE Negative (NEGATIVE); UGLUCOSE 100 MG/DL mg/dL (NEGATIVE); UROBILINOGEN,URINE 0.2 EU/dL (0.2)
--- NOTE | 2019-01-20 23:20 | NUR ---
SEC ACCOUNTANT NOTES DR. MARIN PAGED BACK. INFORMED OF ELEVATED TROPONIN WITH NO NEW ORDERS. JUST MONITOR.
[2019-01-21 00:22] VITALS: BP 126/70
[2019-01-21] MEDS: IV 1/2NS 1000 ML 1,000 ML IV SCH ×2 (02:50→08:28)
--- NOTE | 2019-01-21 02:51 | NUR ---
MABEL SHANE NOTES NON ADMINISTERED THE IV FLUIDS SCHEDULED AT 309. THERE IS CURRENTLY A BAG INFUSING. WILL CHANGE WHEN FINISHED. Addendum: 01/21/19 at 0657 by CAIT NGUYEN RN ERROR; PT IS TELE.
[2019-01-21 04:19] VITALS: BP 114/65
[2019-01-21] MEDS: BLOOD SUGAR DIAGNOSTIC 1 EACH STRIP VI SCH ×2 (06:30→12:25)
[2019-01-21] MEDS: INSULIN REGULAR, HUMAN 100 UNIT/ML 3 ML VIAL SQ PRN ×2 (06:31→13:42)
--- NOTE | 2019-01-21 06:57 | NUR ---
CANT HOOKER CLOSING NOTES PATIENT RESTING IN BED. NO ACUTE CHANGES THROUGHOUT SHIFT. BREATHING EVEN AND UNLABORED. NO SOB NOTED. TOLERATING ROOM AIR. CURRENTLY WITH NO COMPLAINTS OF PAIN OR DISCOMFORT. IV ON RIGHT HAND INTACT AND PATENT WITH IVF INFUSING. ALL OTHER NEEDS MET. SAFETY MEASURES IN PLACE. CALL LIGHT WITHIN REACH. WILL ENDORSE TO ONCOMING NURSE FOR VIDYA.
--- NOTE | 2019-01-21 07:00 | NUR ---
RN OPENING NOTES PT AWAKE AND RESTING IN BED. NO COMPLAINTS OF PAIN, SOB OR DISTRESS AT THIS TIME. PT TELE MONITORED SINUS JANET VPACING. PT HAS RIGHT HAND #20 INTACT AND RUNNING 1/2NS @ 75ML/HR. SAFETY PRECAUTIONS IN PLACE, BED IN LOWEST LOCKED POSITION, X2 SIDE RAILS UP AND CALL LIGHT WITHIN REACH. WILL CONTINUE TO MONITOR.
[2019-01-21 07:42] LABS: CALCIUM, SERUM 8.5 mg/dL (8.5-10.1); CARBON DIOXIDE 24 mmol/L (21-32); CHLORIDE 104 mmol/L (98-107); CREATININE 0.6 mg/dL (0.6-1.3); GLUCOSE 208 mg/dL (74-106); POTASSIUM 3.9 mmol/L (3.5-5.1); SODIUM SERUM 138 mmol/L (136-145); UREA NITROGEN, BLOOD 10 mg/dL (7-18)
[2019-01-21 08:00] VITALS: BP 114/64
[2019-01-21] MEDS: ASPIRIN 81 MG TAB.CHEW PO SCH (08:28)
[2019-01-21] MEDS: PANTOPRAZOLE 40 MG TABLET.DR PO SCH (08:28)
[2019-01-21] MEDS: GABAPENTIN 100 MG CAPSULE PO SCH ×2 (08:29→13:42)
[2019-01-21] MEDS ORDERED: ATORVASTATIN 10 MG TABLET PO SCH (09:00)
[2019-01-21 11:30] VITALS: BP 112/56
[2019-01-21] MEDS: METOPROLOL SUCCINATE 50 MG TAB.SR.24H PO SCH (11:30)
--- NOTE | 2019-01-21 14:55 | NUR ---
ON LINE CSR NOTES PT STABLE AT DISCHARGE. ALL DISCHARGE PAPERWORK, EXPLAINED, SIGNED AND COPIED. ID AND IV REMOVED. PT SON RONA TAKING PATIENT HOME IN PRIVATE CAR. ALL PATIENT BELONGINGS TAKEN WITH PATIENT.
== END 2019-01-21 14:55 | disposition home or self-care (01) | DRG 282 ==
LOC: ER 20:33 → TELE 22:49 → MED 01-21 10:29
PROVIDERS: ADMIT Student in an Organized Health Care Education/Training Program; ATTEND Nurse Practitioner Acute Care
DX: I49.5 Sick sinus syndrome (principal); I21.A1 Myocardial infarction type 2; E86.0 Dehydration; E78.5 Hyperlipidemia, unspecified; E11.65 Type 2 diabetes mellitus with hyperglycemia; I10 Essential (primary) hypertension; K21.9 Gastro-esophageal reflux disease without esophagitis; Z95.0 Presence of cardiac pacemaker; Z91.14 Patient's other noncompliance with medication regimen; Z79.4 Long term (current) use of insulin; K52.9 Noninfective gastroenteritis and colitis, unspecified; Z87.440 Personal history of urinary (tract) infections; Z79.84 Long term (current) use of oral hypoglycemic drugs; R10.9 Unspecified abdominal pain
CPT/HCPCS: 36415; 71045-TC; 76700-TC; 80048-TC; 80061-TC; 80076-TC; 81000-TC; 82962-TC; 83605-TC; 83690-TC; 83735-TC; 83880; 84100-TC; 84443-TC; 84484-TC; 85025-TC; 85378-TC; 87040-TC; 87081-TC; 93307-TC; G0378; J1815; J3490; J7030

== ENCOUNTER 2019-09-25 21:31 | Inpatient (IN) | payer MEDICARE, MEDICAID ==
[~2019-09-25] VITALS: Ht 160 cm; Wt 52.2 kg
[~2019-09-25 21:31] MED LIST changes: -GLIP5TAB13 PO; -METF-440 PO; +ROSU10TA2 PO; -ROSU5TAB PO
--- NOTE | 2019-09-25 22:31 | NUR ---
PT CAME TO ER BED 8 C/O LEFT HIP PAIN. PATIENT STATES THAT SHE HAD TRIPPED OVER A SMALL STONE AND FELL FORWARD. LEFT LEG SHORTENING COMPARED TO THE RIGHT LEG. BILATERAL PEDAL PULSE STRONG AND EQUAL. PATIENT STAES SHE DID NOT HIT HER HEAD, NOR LOSS CONSCIOUSNESS. PT IS AAOX4. NO SOB. BREATHING EVENLY AND UNLABORED ON ROOM AIR.
[2019-09-25] MEDS ORDERED: ONDANSETRON HCL/PF 4 MG/2 ML VIAL IVP ONE (23:00)
[2019-09-25] MEDS ORDERED: MORPHINE SULFATE INJ 2 MG/ML DISP.SYRIN IV ONE (23:00)
[2019-09-25 23:03] LABS: LYMPHOCYTES # (AUTO) 0.7 /CMM (0.8-4.8); MEAN CORPUSCULAR HGB CONC 34 g/dl (31.0-36.0); NEUTROPHILS # (AUTO) 17.8 /CMM (1.8-8.9); NEUTROPHILS % (AUTO) 92.2 % (43.0-81.0)
[2019-09-25 23:06] LABS: BASOPHILS % (AUTO) 0.2 % (0.0-2.0); HEMATOCRIT 40 % (33-45); HEMOGLOBIN 13.8 g/dL (11.5-14.8); LYMPHOCYTES % (AUTO) 3.5 % (20.0-44.0); MEAN CORPUSCULAR VOLUME 88 fL (82-100); MONOCYTES # (AUTO) 0.8 /CMM (0.1-1.30); MONOCYTES % (AUTO) 4.1 % (2.0-12.0); PLATELET COUNT (AUTO) 263 /CMM (150-450); RED BLOOD CELL COUNT(AUTO) 4.61 MIL/uL (4.0-5.2); WHITE BLOOD COUNT (AUTO) 19.4 K/uL (4.3-11.0)
[2019-09-25] MEDS ORDERED: ONDANSETRON HCL/PF 4 MG/2 ML VIAL ONE (23:08)
[2019-09-25] MEDS ORDERED: MORPHINE SULFATE INJ 4 MG/ML DISP.SYRIN ONE (23:08)
--- NOTE | 2019-09-25 23:14 | NUR ---
BLOOD DRAWN AND SENT WITH SURVEY OPERATIONS DIRECTOR
[2019-09-25 23:15] LABS: ALBUMIN 3.9 g/dL (3.4-5.0); BILIRUBIN,DIRECT 0.1 mg/dL (0.0-0.2); CALCIUM, SERUM 9.6 mg/dL (8.5-10.1); CREATININE 0.8 mg/dL (0.6-1.3); POTASSIUM 4.5 mmol/L (3.5-5.1); TOTAL PROTEIN, SERUM 8.3 g/dL (6.4-8.2)
--- NOTE | 2019-09-25 23:24 | NUR ---
BED 308-9
--- NOTE | 2019-09-25 23:39 | NUR ---
URINE COLLECTED AND SENT TO LAB
[2019-09-25 23:40] LABS: APPEARANCE,URINE Cloudy (CLEAR); BILIRUBIN,URINE Negative (NEGATIVE); BLOOD, URINE Small Ery/uL (NEGATIVE); COLOR,URINE Light yellow (YELLOW); KETONES,URINE 15 (NEGATIVE); LEUKOCYTE ESTERASE ,URINE Small (NEGATIVE); NITRITE, URINE Negative (NEGATIVE); PH,URINE 5.5 (5.0-8.0); PROTEIN,URINE 100 mg/dl (NEGATIVE); UGLUCOSE >=1000 mg/dL (NEGATIVE); UROBILINOGEN,URINE 0.2 EU/dL (0.2)
--- NOTE | 2019-09-25 23:43 | NUR ---
REPORT GIVEN TO FEDERICO MONROE FOR VIDYA.
--- NOTE | 2019-09-25 23:56 | NUR ---
XRAY AT BEDSIDE
[2019-09-26] MEDS ORDERED: TEMAZEPAM 15 MG CAPSULE PO PRN
[2019-09-26] MEDS ORDERED: Z GUARD REMEDY 2 OZ OINT TP PRN
[2019-09-26] MEDS ORDERED: ACETAMINOPHEN 325 MG TABLET PO PRN
[2019-09-26] MEDS ORDERED: MAG HYDROX/AL HYDROX/SIMETH 30 ML UDC PO PRN
[2019-09-26] MEDS ORDERED: MAGNESIUM HYDROXIDE 30 ML UDC PO PRN
[2019-09-26] MEDS ORDERED: DEXTROSE 50%-WATER 50 ML DISP.SYRIN IV PRN
[2019-09-26] MEDS ORDERED: ONDANSETRON HCL/PF 4 MG/2 ML VIAL IVP PRN
[2019-09-26 00:13] LABS: BACTERIA,URINE Many /HPF (None Seen); SQUAMOUS EPITHELIAL CELL,UR Few /HPF (None Seen); WBC,URINE TOO NUMEROUS TO COUN /HPF (0-3)
[2019-09-26] MEDS ORDERED: CEFTRIAXONE 1 G in IV D5W 50 ML IV SCH (00:30)
[2019-09-26 01:10] VITALS: BP 159/80
[2019-09-26] MEDS: IV NS 0.9% 1,000 ML IV PRN ×2 (01:12→18:16)
[2019-09-26] MEDS ORDERED: CEFTRIAXONE 1 G VIAL ONE (01:29)
[2019-09-26] MEDS: BLOOD SUGAR DIAGNOSTIC 1 EACH STRIP IN SCH ×4 (01:31→17:22)
--- NOTE | 2019-09-26 01:52 | NUR ---
0110 - RECEIVED THIS PATIENT FROM ER VIA GURNEY ACCOMPANIED BY 2 ER STAFF. ADMITTED TO MS 308-2 DUE TO L HIP FRACTURE UNDER THE SERVICE OF RADHA ANGULO. TRANSFERRED TO BED COMFORTABLY WITH 3 PERSON'S ASSIST. PATIENT COMPLAINTS OF SEVERE PAIN ON THE HIP UPON MOBILIZATION. ADMISSION ROUTINE DONE. PATIENT'S BELONGINGS INVENTORY COMPLETED BY THE ASSIGNED EDUCATION COORDINATOR. PATIENT REFUSED TO BY TURNED AND REPOSITION DUE TO PAIN. PATIENT CLAIMED SHE HAS NO SKIN ISSUES IDENTIFIED. WITH FC INSERTED FROM ER, INDWELLING WELL WITH CLEAR YELLOW URINE OUTPUT, KEPT PATIENT ON SUPINE POSITION ON BED COMFORTABLY. ADMISSION ORDERS NOTED AND CARRIED OUT. KEPT ON BED CLEAN, DRY AND COMFORTABLE. CALL LIGHT WITHIN EASY REACH. WILL CONTINUE TO MONITOR ACCORDINGLY.
--- NOTE | 2019-09-26 04:07 | NUR ---
MS RN NOTES Patient refused turning and repositioning despite education provided due to severe pain upon movement of the L hip. Patient verbalized understanding but insisted not to be turned and repositioned. Will continue to monitor accordingly.
[2019-09-26] MEDS: MORPHINE SULFATE INJ 2 MG/ML DISP.SYRIN IV PRN ×2 (05:03→09:19)
[2019-09-26 06:35] LABS: BASOPHILS % (AUTO) 0.2 % (0.0-2.0); HEMATOCRIT 38 % (33-45); HEMOGLOBIN 13.1 g/dL (11.5-14.8); LYMPHOCYTES # (AUTO) 1.2 /CMM (0.8-4.8); LYMPHOCYTES % (AUTO) 9.5 % (20.0-44.0); MEAN CORPUSCULAR HGB CONC 34 g/dl (31.0-36.0); MEAN CORPUSCULAR VOLUME 87 fL (82-100); MONOCYTES # (AUTO) 0.9 /CMM (0.1-1.30); MONOCYTES % (AUTO) 6.7 % (2.0-12.0); NEUTROPHILS # (AUTO) 10.7 /CMM (1.8-8.9); NEUTROPHILS % (AUTO) 83.6 % (43.0-81.0); PLATELET COUNT (AUTO) 256 /CMM (150-450); WHITE BLOOD COUNT (AUTO) 12.8 K/uL (4.3-11.0)
[2019-09-26 06:40] LABS: CALCIUM, SERUM 8.5 mg/dL (8.5-10.1); CREATININE 0.6 mg/dL (0.6-1.3); MAGNESIUM 1.4 mg/dL (1.8-2.4); PHOSPHORUS 3.6 mg/dL (2.5-4.9); POTASSIUM 4.3 mmol/L (3.5-5.1)
--- NOTE | 2019-09-26 06:40 | NUR ---
MS RN CLOSING NOTES Patient asleep, easily awaken. On O2 inhalation via NC @ 2LPM, no SOB/respiratory distress noted. With complaints of pain upon movement of L hip, patient refused turning and repositioning within the shift. All nursing needs attended, due meds given as ordered. Kept on bed clean, dry and comfortable. Call light within easy reach. Endorsed to the next shift.
--- NOTE | 2019-09-26 07:25 | NUR ---
RN OPENING NOTE PT WAS RECEIVED IN BED AT LOWEST AND LOCKED POSITION WITH SIDE RAILS UP X2, A/O X4 SOUTH SUDANESE SPEAKING BREATHING EVEN AND UNLABORED ON 2L VIA NC, NO S/S OF ANY DISTRESS OR PAIN NOTED AT THIS TIME, ZULUAGA IN PLACE AND DRAINING, IV IS PATENT AND INTACT, AWAITING ORTHO CONSULT FOR POSSIBLE SURGERY, SAFETY PRECAUTIONS IN PLACE, CALL LIGHT IN REACH, WILL MONITOR ACCORDINGLY
[2019-09-26] MEDS: Magnesium 1GM/D5W 100ML PREMIX 100 ML IV SCH ×2 (07:45→09:17)
[2019-09-26 08:00] VITALS: BP 137/74
[2019-09-26] MEDS ORDERED: PANTOPRAZOLE 40 MG VIAL IV SCH (09:00)
--- NOTE | 2019-09-26 09:05 | NUR ---
RN NOTE [facility] CALLED AT [phone], SPOKE TO REGARDING PLAN FOR SURGERY, PER MD SURGERY WILL BE DONE SATURDAY AND PT CAN EAT AT THIS TIME.
[2019-09-26] MEDS: ATORVASTATIN 10 MG TABLET PO SCH (09:15)
[2019-09-26] MEDS: GABAPENTIN 100 MG CAPSULE PO SCH ×3 (09:16→17:11)
[2019-09-26] MEDS: METOPROLOL SUCCINATE 50 MG TAB.SR.24H PO SCH (09:16)
[2019-09-26] MEDS: METFORMIN 500 MG TABLET PO SCH ×2 (09:17→17:22)
[2019-09-26] MEDS: ENOXAPARIN SODIUM 30 MG/0.3 ML DISP.SYRIN SQ SCH (09:23)
[2019-09-26] MEDS: INSULIN REGULAR, HUMAN 100 UNIT/ML 3 ML VIAL SQ PRN ×2 (11:42→17:23)
[2019-09-26 16:00] VITALS: BP 98/43
--- NOTE | 2019-09-26 18:22 | NUR ---
RN CLOSING NOTE PT IN BED AT LOWEST AND LOCKED POSITION WITH SIDE RAILS UP X2, A/O X4 BREATHING EVEN AND UNLABORED WITH NO DISTRESS OR PAIN AT THIS TIME, ZULUAGA IN PLACE AND DRAINING WITH 500 ML OUT, IV IS PATENT AND INTACT, SAFETY PRECAUTIONS IN PLACE, CALL LIGHT IN REACH, ALL NEEDS ATTENDED TO, WILL ENDORSE TO NIGHT RN FOR VIDYA.
--- NOTE | 2019-09-26 19:30 | NUR ---
MS RN OPENING NOTE RECEIVED PATIENT IN BED. A/OX 3, CHINESE SPEAKING, ABLE TO MAKE BASIC NEEDS KNOWN. ON OXYGEN 2L.MIN VIA NASAL CANNULA. RESPIRATIONS ARE EVEN AND UNLABORED. NO S/S SOB NOTED. DENIES PAIN AT THIS TIME. IN NO APPARENT DISTRESS. IV ACCESS IN RFA#22 PATENT AND SALINE LOCKED. ZULUAGA CATHETER IS PRESENT, DRAINING TO GRAVITY, URINE IS YELLOW AND CLEAR. BED IS LOW AND LOCKED, HOB ELEVATED IN HIGH FOWLERS, SIDE RAILS UPX2, BED ALARM ON. CALL LIGHT WITHIN REACH. FAMILY AT BEDSIDE. WILL CONTINUE TO MONITOR.
[2019-09-26 20:00] VITALS: BP_SYST 117; BP_DIAS 58; BP_DIAS 77
[2019-09-27] MEDS: CEFTRIAXONE 1 G in IV D5W 50 ML IV SCH ×2 (00:02→23:55)
[2019-09-27] MEDS: BLOOD SUGAR DIAGNOSTIC 1 EACH STRIP IN SCH ×4 (00:02→17:05)
[2019-09-27] MEDS: INSULIN REGULAR, HUMAN 100 UNIT/ML 3 ML VIAL SQ PRN ×4 (00:10→17:10)
[2019-09-27] MEDS: MORPHINE SULFATE INJ 2 MG/ML DISP.SYRIN IV PRN ×2 (00:12→06:04)
--- NOTE | 2019-09-27 00:12 | NUR ---
MS RN NOTE ADMINISTERED PRN MORPHINE 4MG FOR PAIN 10/10 IN LEFT HIP. PATIENTS VITAL SIGNS HAVE ALSO INCREASED. WILL CONTINUE TO MONITOR.
--- NOTE | 2019-09-27 06:04 | NUR ---
MS RN NOTE ADMINISTERED PRN MORPHINE 4MG FOR PAIN 10/10 IN LEFT HIP. WILL CONTINUE TO MONITOR.
--- NOTE | 2019-09-27 06:14 | NUR ---
MS RN NOTE OBTAINED CONSENT FOR SX, ANESTHESIA, AND BLOOD.
[2019-09-27 06:27] LABS: BASOPHILS # (AUTO) 0.1 /CMM (0.0-0.2); BASOPHILS % (AUTO) 0.4 % (0.0-2.0); EOSINOPHILS % (AUTO) 0.1 % (0.0-6.0); HEMATOCRIT 35 % (33-45); HEMOGLOBIN 12.1 g/dL (11.5-14.8); LYMPHOCYTES # (AUTO) 1.8 /CMM (0.8-4.8); LYMPHOCYTES % (AUTO) 11.9 % (20.0-44.0); MEAN CORPUSCULAR HGB CONC 35 g/dl (31.0-36.0); MEAN CORPUSCULAR VOLUME 88 fL (82-100); MONOCYTES # (AUTO) 1.1 /CMM (0.1-1.30); MONOCYTES % (AUTO) 7.4 % (2.0-12.0); NEUTROPHILS # (AUTO) 11.8 /CMM (1.8-8.9); NEUTROPHILS % (AUTO) 80.2 % (43.0-81.0); PLATELET COUNT (AUTO) 230 /CMM (150-450); RED BLOOD CELL COUNT(AUTO) 3.99 MIL/uL (4.0-5.2); WHITE BLOOD COUNT (AUTO) 14.7 K/uL (4.3-11.0)
--- NOTE | 2019-09-27 06:39 | NUR ---
MS RN CLOSING NOTE PATIENT IN BED. A/OX 3, PALAUAN AND YEMENI SPEAKING, ABLE TO MAKE BASIC NEEDS KNOWN. ON OXYGEN 2L/MIN VIA NASAL CANNULA. RESPIRATIONS REMAIN EVEN AND UNLABORED. NO SOB NOTED. MANAGED PAIN WITH MORPHINE 4MG THROUGHOUT SHIFT.NO DISTRESS NOTED. IV ACCESS MAINTAINED IN RFA#22 RUNNING NS@75ML/HR. ZULUAGA CATHETER IS MAINTAINED, DRAINING TO GRAVITY, URINE IS YELLOW OUTPUT 500. BED IS LOW AND LOCKED, HOB ELEVATED IN SEMI FOWLERS, SIDE RAILS UPX2, BED ALARM ON. CALL LIGHT WITHIN REACH. WILL ENDORSE TO NEXT SHIFT.
[2019-09-27 06:41] LABS: ALBUMIN 2.7 g/dL (3.4-5.0); BILIRUBIN,TOTAL 0.9 mg/dL (0.2-1.0); CALCIUM, SERUM 8.4 mg/dL (8.5-10.1); CREATININE 0.9 mg/dL (0.6-1.3); PHOSPHORUS 2.9 mg/dL (2.5-4.9); POTASSIUM 4.2 mmol/L (3.5-5.1); TOTAL PROTEIN, SERUM 6.6 g/dL (6.4-8.2)
[2019-09-27] MEDS: IV NS 0.9% 1,000 ML IV PRN ×2 (06:54→20:31)
--- NOTE | 2019-09-27 07:25 | NUR ---
MS RN NOTES PATIENT RECEIVED IN BED, SLEEPING. ALERT AND ORIENTED X 3, MAINLY TONGAN/MAURITANIAN SPEAKING. PATIENT ON NASAL CANNULA, 2 LITERS, PATIENT PRESENT NO RESPIRATORY DISTRESS, NO SHORTNESS OF BREATH, WITH NON-LABORED BREATHING. PATIENT SKIN WARM AND DRY. IV ACCESS INTACT AND PATENT. PATIENT ZULUAGA IN PLACE, WITH CLEAR, YELLOW URINE. PATIENT PRESENTS NO SIGN OF DISCOMFORT, PROVIDED COMFORT MEASURES. SAFETY PRECAUTIONS IN PLACE WITH BED IN THE LOWEST POSITION, BED ALARM ON, BED LOCKED, BILATERAL SIDE RAILS UP, HEAD OF BED UP IN SEMI-FOWLERS, AND CALL LIGHT WITHIN EASY REACH. WILL CONTINUE TO MONITOR PATIENT.
[2019-09-27 08:00] VITALS: BP 120/65
[2019-09-27] MEDS: METOPROLOL SUCCINATE 50 MG TAB.SR.24H PO SCH (08:21)
[2019-09-27] MEDS: ATORVASTATIN 10 MG TABLET PO SCH (08:21)
[2019-09-27] MEDS: METFORMIN 500 MG TABLET PO SCH ×2 (08:21→16:18)
[2019-09-27] MEDS: ENOXAPARIN SODIUM 30 MG/0.3 ML DISP.SYRIN SQ SCH (08:21)
[2019-09-27] MEDS: GABAPENTIN 100 MG CAPSULE PO SCH ×3 (08:22→16:18)
[2019-09-27 16:00] VITALS: BP 141/80
--- NOTE | 2019-09-27 18:33 | NUR ---
MS RN NOTES PATIENT IN BED RESTING, ALERT AND ORIENTED X 3, MAINLY TAIWANESE AND LATVIAN SPEAKING. PATIENT ON NASAL CANNULA, 2 LITERS, PATIENT PRESENTS NO SOB, NON-LABORED BREATHING, AND NO RESPIRATORY DISTRESS. PATIENT ZULUAGA CATHETER IN PLACE, WITH CLEAR AND YELLOW URINE. PATIENT SKIN KEPT CLEAN AND DRY. SKIN IS INTACT, IV ACCESS KEPT CLEAN, INTACT, AND PATENT. SAFETY PRECAUTIONS IN PLACE, WITH BED IN THE LOWEST POSITION, HEAD OF THE BED IN SEMI-FOWLERS, BED LOCKED, BED ALARM ON, BILATERAL SIDE RAILS UP, AND CALL LIGHT WITH IN EASY REACH. PROVIDED COMFORT MEASURES FOR PATIENT. WILL ENDORSE VIDYA TO UPCOMING NURSE.
--- NOTE | 2019-09-27 19:30 | NUR ---
MS RN OPENING NOTES RECEIVED PATIENT IN BED ALERT AND ORIENTED X 3. VERBALLY RESPONSIVE AND ABLE TO FOLLOW DIRECTIONS. BREATHING REGULAR AND UNLABORED ON OXYGEN AT 2L/MIN VIA NASAL CANNULA. RIGHT FOREARM G22 IV LINE INTACT AND PATENT, INFUSING WELL WITH NO BLEEDING OR S/S OF INFILTRATION NOTED. BODY ASSESSMENT DONE, SKIN REMAINED INTACT CLEAN AND DRY. COMPLAINED OF LEFT HIP PAIN BUT REFUSED PAIN MEDICATION. NON-PHARMACOLOGICAL INTERVENTIONS PROVIDED. BED LOW AND LOCKED ON SEMI FOWLERS POSITION. CALL LIGHT IN REACH. WILL CONTINUE TO MONITOR.
[2019-09-27 20:00] VITALS: BP 152/73
[2019-09-27 20:04] VITALS: BP 152/73
[2019-09-28] VITALS (10 sets, daily range): BP systolic 107–135; BP diastolic 55–76
[2019-09-28] MEDS: BLOOD SUGAR DIAGNOSTIC 1 EACH STRIP IN SCH ×4 (00:03→16:48)
[2019-09-28] MEDS: INSULIN REGULAR, HUMAN 100 UNIT/ML 3 ML VIAL SQ PRN ×3 (00:04→16:44)
--- NOTE | 2019-09-28 00:05 | NUR ---
MS RN NOTES BS 243mG/dl, NO INSULIN COVERAGE GIVEN PATIENT ON NPO FOR SURGERY TOMORROW. WILL CONTINUE TO MONITOR.
[2019-09-28] MEDS: MORPHINE SULFATE INJ 2 MG/ML DISP.SYRIN IV PRN (01:49)
--- NOTE | 2019-09-28 02:05 | NUR ---
MS RN NOTES COMPLAINED OF 9/10 LEFT HIP PAIN, MORPHINE 4MG GIVEN VIA IV PUSH. NON-PHARMACOLOGICAL INTERVENTIONS PROVIDED. VITAL SIGNS WNL. WILL CONTINUE TO MONITOR.
--- NOTE | 2019-09-28 06:15 | NUR ---
MS RN NOTES BS 229mG/dl, NO INSULIN COVERAGE GIVEN PATIENT ON NPO FOR SURGERY TOMORROW. WILL CONTINUE TO MONITOR.
[2019-09-28 06:27] LABS: ALBUMIN 2.4 g/dL (3.4-5.0); CALCIUM, SERUM 8.1 mg/dL (8.5-10.1); CREATININE 0.7 mg/dL (0.6-1.3); MAGNESIUM 1.5 mg/dL (1.8-2.4); PHOSPHORUS 2.9 mg/dL (2.5-4.9); POTASSIUM 4.2 mmol/L (3.5-5.1); TOTAL PROTEIN, SERUM 6.6 g/dL (6.4-8.2)
[2019-09-28 06:36] LABS: BASOPHILS % (AUTO) 0.3 % (0.0-2.0); EOSINOPHILS % (AUTO) 0.1 % (0.0-6.0); HEMATOCRIT 35 % (33-45); LYMPHOCYTES # (AUTO) 1.8 /CMM (0.8-4.8); LYMPHOCYTES % (AUTO) 11.8 % (20.0-44.0); MEAN CORPUSCULAR HGB CONC 34 g/dl (31.0-36.0); MEAN CORPUSCULAR VOLUME 87 fL (82-100); MONOCYTES # (AUTO) 1.3 /CMM (0.1-1.30); MONOCYTES % (AUTO) 8.4 % (2.0-12.0); NEUTROPHILS # (AUTO) 11.9 /CMM (1.8-8.9); NEUTROPHILS % (AUTO) 79.4 % (43.0-81.0); PLATELET COUNT (AUTO) 233 /CMM (150-450); RED BLOOD CELL COUNT(AUTO) 4.07 MIL/uL (4.0-5.2)
--- NOTE | 2019-09-28 06:45 | NUR ---
MS RN CLOSING NOTES PATIENT IN BED ALERT AND ORIENTED X 3. VERBALLY RESPONSIVE AND ABLE TO FOLLOW DIRECTIONS. BREATHING REGULAR AND UNLABORED ON OXYGEN AT 2L/MIN VIA NASAL CANNULA. RIGHT FOREARM G22 IV LINE PATENT AND INFUSING WELL. NO REPORTS OF PAIN/DISCOMFORT AT THIS TIME. ZULUAGA CATH INTACT, DRAINING CLOUDY YELLOW URINE WITH 1100cc OUTPUT. BED LOW AND LOCKED ON SEMI FOWLERS POSITION. CALL LIGHT IN REACH. WILL ENDORSE TO MORNING SHIFT FOR VIDYA.
--- NOTE | 2019-09-28 07:47 | NUR ---
MS RN NOTES. PATIENT IN BED SLEEPING. NO SOB OR ACUTE DISTRESS NOTED. BED IN LOW LOCKED POSITION. CALL LIGHT WITHIN REACH. WILL CONTINUE TO MONITOR.
[2019-09-28] MEDS: Magnesium 1GM/D5W 100ML PREMIX 100 ML IV SCH ×4 (08:37→09:58)
[2019-09-28] MEDS: METFORMIN 500 MG TABLET PO SCH ×2 (09:00→16:42)
[2019-09-28] MEDS: GABAPENTIN 100 MG CAPSULE PO SCH ×3 (09:00→16:42)
[2019-09-28] MEDS: ATORVASTATIN 10 MG TABLET PO SCH (09:00)
[2019-09-28] MEDS: ENOXAPARIN SODIUM 30 MG/0.3 ML DISP.SYRIN SQ SCH (09:00)
[2019-09-28] MEDS: METOPROLOL SUCCINATE 50 MG TAB.SR.24H PO SCH (09:00)
[2019-09-28] MEDS ORDERED: BACITRACIN 50000 UNITS/VIAL ONE (11:26)
[2019-09-28] MEDS ORDERED: BUPIVACAINE 0.5 % PF 150 MG/30 ML VIAL ONE (11:26)
[2019-09-28] MEDS ORDERED: FENTANYL PF 100MCG/2ML AMPUL ONE ×2 (11:28→13:42)
[2019-09-28] MEDS ORDERED: DEXAMETHASONE SOD PHOSPHATE 4 MG/ML VIAL ONE (11:28)
[2019-09-28] MEDS ORDERED: ROCURONIUM BROMIDE 50 MG/5 ML ONE (11:29)
[2019-09-28] MEDS ORDERED: TRANEXAMIC ACID 1,000 MG in SODIUM CHLORIDE IRRIG SOLUTION 90 ML IR ONE (12:30)
[2019-09-28] MEDS: TRANEXAMIC ACID 1,000 MG in IV NS 0.9% 100 ML IV SCH ×2 (13:00→14:00)
[2019-09-28] MEDS ORDERED: HYDROMORPHONE 1 MG/1 ML DISP.SYRIN ONE (13:28)
--- NOTE | 2019-09-28 14:32 | NUR ---
MS RN NOTES PATIENT RETURNED FROM OR IN STABLE CONDITION WILL CONTINUE TO MONITOR.
[2019-09-28] MEDS: IV LR 1000 ML 1,000 ML IV PRN (14:59)
[2019-09-28 15:30] LABS: HEMOGLOBIN 12.4 g/dL (11.5-14.8)
--- NOTE | 2019-09-28 18:44 | NUR ---
MS RN NOTES PATIENT IN BED RESTING NO SOB OR ACUTE DISTRESS NOTED. NO ACUTE CHANGES NOTED DURING SHIFT. PATIENT S/P LEFT HIP HEMIARTHROPLASTY TOLERATED WELL. ALL DUE MEDICATIONS ADMINISTERED. ALL NEEDS MET. WILL ENDORSE CARE TO PM SHIFT.
--- NOTE | 2019-09-28 19:20 | NUR ---
MS RN OPENING NOTES PATIENT RECEIVED RESTING IN BED A/O X3, ANDORRAN/ LATVIAN SPEAKING. PATIENT ON 2L OF O2 VIA NC WITH BREATHING EVEN AND UNLABORED, NO SOB NOTED. NO SIGNS OF ACUTE DISTRESS. NO CURRENT COMPLAINTS OF PAIN OR DISCOMFORT. FAMILY IS AT BEDSIDE. ZULUAGA IN PLACE POST-OP, DRAINING WILL CLEAR YELLOW URINE. IV LOCATED ON R FA #22 RUNNING LS @ 75 ML/HR. SAFETY PRECAUTIONS IN PLACE WITH BED IN LOWEST POSITION, BREAKS ON, CALL LIGHT WITHIN REACH, AND SIDE RAILS UP X2. WILL CONTINUE TO MONITOR.
[2019-09-28] MEDS: CEFAZOLIN 2 GM in IV D5W 100 ML IV SCH (19:51)
[2019-09-29] MEDS: CEFTRIAXONE 1 G in IV D5W 50 ML IV SCH ×2 (00:35→23:50)
[2019-09-29] MEDS: BLOOD SUGAR DIAGNOSTIC 1 EACH STRIP IN SCH ×5 (00:41→23:50)
[2019-09-29] MEDS: INSULIN REGULAR, HUMAN 100 UNIT/ML 3 ML VIAL SQ PRN ×4 (00:43→17:26)
[2019-09-29] MEDS: CEFAZOLIN 2 GM in IV D5W 100 ML IV SCH (04:12)
[2019-09-29] MEDS: IV LR 1000 ML 1,000 ML IV PRN ×2 (05:54→19:41)
[2019-09-29 06:24] LABS: BASOPHILS % (AUTO) 0.2 % (0.0-2.0); HEMATOCRIT 33 % (33-45); HEMOGLOBIN 11.4 g/dL (11.5-14.8); LYMPHOCYTES # (AUTO) 0.9 /CMM (0.8-4.8); LYMPHOCYTES % (AUTO) 4.9 % (20.0-44.0); MEAN CORPUSCULAR HGB CONC 34 g/dl (31.0-36.0); MEAN CORPUSCULAR VOLUME 86 fL (82-100); MONOCYTES # (AUTO) 1.5 /CMM (0.1-1.30); NEUTROPHILS # (AUTO) 15.8 /CMM (1.8-8.9); NEUTROPHILS % (AUTO) 86.9 % (43.0-81.0); PLATELET COUNT (AUTO) 281 /CMM (150-450); RED BLOOD CELL COUNT(AUTO) 3.87 MIL/uL (4.0-5.2); WHITE BLOOD COUNT (AUTO) 18.2 K/uL (4.3-11.0)
--- NOTE | 2019-09-29 06:28 | NUR ---
MS RN CLOSING NOTES PATIENT IN BED ALERT AND ORIENTED X 3, SLOVENIAN SPEAKING. VERBALLY RESPONSIVE AND ABLE TO FOLLOW DIRECTIONS. BREATHING REGULAR AND UNLABORED ON OXYGEN AT 2L/MIN VIA NASAL CANNULA. RIGHT FOREARM G22 IV LINE PATENT AND INFUSING WELL LR @ 75 ML/HR. NO REPORTS OF PAIN/DISCOMFORT AT THIS TIME. ZULUAGA CATH INTACT, DRAINING YELLOW URINE. BED LOW AND LOCKED ON SEMI FOWLERS POSITION. CALL LIGHT IN REACH. ALL NEEDS ATTENDED TO, PATIENT KEPT CLEAN AND DRY THROUGHOUT THE NIGHT. WILL ENDORSE TO ONCOMING SHIFT ABOUT VIDYA.
[2019-09-29 08:00] VITALS: BP 154/73
--- NOTE | 2019-09-29 08:00 | NUR ---
MS RN NOTES PATIENT IN BED RESTING NO SOB OR ACUTE DISTRESS NOTED. PATIENT ALERT, ORIENTED X3. PERIPHERAL IV INTACT PATENT. PATIENT REFUSES PAIN MEDICATIONS STATES SHE IS COMFORTABLE AT THIS MOMENT. BED IS IN LOW LOCKED POSITION. CALL LIGHT WITHIN REACH. WILL CONTINUE TO MONITOR.
[2019-09-29 08:15] LABS: CALCIUM, SERUM 8.6 mg/dL (8.5-10.1); CREATININE 0.8 mg/dL (0.6-1.3); MAGNESIUM 1.8 mg/dL (1.8-2.4); PHOSPHORUS 2.8 mg/dL (2.5-4.9); POTASSIUM 4.3 mmol/L (3.5-5.1)
[2019-09-29] MEDS: GABAPENTIN 100 MG CAPSULE PO SCH ×3 (08:39→17:22)
[2019-09-29] MEDS: METFORMIN 500 MG TABLET PO SCH ×2 (08:39→17:22)
[2019-09-29] MEDS: ATORVASTATIN 10 MG TABLET PO SCH (08:39)
[2019-09-29] MEDS: METOPROLOL SUCCINATE 50 MG TAB.SR.24H PO SCH (08:40)
[2019-09-29] MEDS: HYDROCODONE/APAP 5/325MG 1 EACH TABLET PO PRN ×2 (08:55→13:06)
[2019-09-29] MEDS: ENOXAPARIN SODIUM 40 MG/0.4 ML DISP.SYRIN SQ SCH (11:56)
[2019-09-29 16:00] VITALS: BP 130/60
--- NOTE | 2019-09-29 18:52 | NUR ---
MS RN NOTES PATIENT IN BED RESTING NO SOB OR ACUTE DISTRESS NOTED. ALL DUE MEDICATIONS ADMINISTERED. ALL NEEDS MET. NO ACUTE CHANGES NOTED DURING SHIFT. WILL ENDORSE CARE TO PM SHIFT.
--- NOTE | 2019-09-29 19:30 | NUR ---
MS RN OPENING NOTE RECEIVED PATIENT IN BED. A/OX 3, POLISH/AZERI SPEAKING, ABLE TO MAKE BASIC NEEDS KNOWN. TOLERATING ROOM AIR. RESPIRATIONS ARE EVEN AND UNLABORED. NO S/S SOB NOTED. DENIES PAIN AT THIS TIME. IN NO APPARENT DISTRESS. IV ACCESS IN RFA#22 RUNNING LR@75ML/HR. ZULUAGA CATHETER IS PRESENT, DRAINING TO GRAVITY, URINE IS YELLOW AND CLEAR. BED IS LOW AND LOCKED, HOB ELEVATED IN SEMI FOWLERS, SIDE RAILS UPX2, DVT PUMPS APPLIED, BED ALARM ON. CALL LIGHT WITHIN REACH. FAMILY AT BEDSIDE. WILL CONTINUE TO MONITOR.
[2019-09-29 20:00] VITALS: BP 130/61
[2019-09-30] MEDS: INSULIN REGULAR, HUMAN 100 UNIT/ML 3 ML VIAL SQ PRN ×2 (00:01→06:22)
[2019-09-30] MEDS: HYDROCODONE/APAP 5/325MG 1 EACH TABLET PO PRN ×4 (00:03→15:25)
--- NOTE | 2019-09-30 00:03 | NUR ---
MS RN NOTES ADMINISTERED PRN NORCO 5/325 FOR PAIN 10/10 IN LEFT HIP. WILL CONTINUE TO MONITOR.
[2019-09-30] MEDS: BLOOD SUGAR DIAGNOSTIC 1 EACH STRIP IN SCH (06:19)
[2019-09-30 06:20] LABS: BASOPHILS # (AUTO) 0.1 /CMM (0.0-0.2); BASOPHILS % (AUTO) 0.4 % (0.0-2.0); EOSINOPHILS % (AUTO) 0.3 % (0.0-6.0); HEMATOCRIT 31 % (33-45); HEMOGLOBIN 10.5 g/dL (11.5-14.8); LYMPHOCYTES # (AUTO) 2.2 /CMM (0.8-4.8); LYMPHOCYTES % (AUTO) 14.3 % (20.0-44.0); MEAN CORPUSCULAR HGB CONC 34 g/dl (31.0-36.0); MEAN CORPUSCULAR VOLUME 87 fL (82-100); MONOCYTES # (AUTO) 1.2 /CMM (0.1-1.30); MONOCYTES % (AUTO) 7.7 % (2.0-12.0); NEUTROPHILS # (AUTO) 11.8 /CMM (1.8-8.9); NEUTROPHILS % (AUTO) 77.3 % (43.0-81.0); PLATELET COUNT (AUTO) 272 /CMM (150-450); RED BLOOD CELL COUNT(AUTO) 3.52 MIL/uL (4.0-5.2); WHITE BLOOD COUNT (AUTO) 15.2 K/uL (4.3-11.0)
[2019-09-30 06:32] LABS: CALCIUM, SERUM 8.3 mg/dL (8.5-10.1); CREATININE 0.7 mg/dL (0.6-1.3); MAGNESIUM 1.5 mg/dL (1.8-2.4); POTASSIUM 4.2 mmol/L (3.5-5.1)
--- NOTE | 2019-09-30 06:55 | NUR ---
MS RN CLOSING NOTE PATIENT IN BED. A/OX 3, [place]/CYPRI[place] SPEAKING, ABLE TO MAKE BASIC NEEDS KNOWN. TOLERATING ROOM AIR. RESPIRATIONS ARE EVEN AND UNLABORED. NO SOB NOTED. MANAGED PAIN WITH NORCO 5/325 THROUGHOUT SHIFT. NO DISTRESS NOTED. IV ACCESS MAINTAINED IN RFA#22 RUNNING LR@75ML/HR. ZULUAGA CATHETER WAS REMOVED DURING SHIFT. BED IS LOW AND LOCKED, HOB ELEVATED IN SEMI FOWLERS, SIDE RAILS UPX2, DVT PUMPS ON, BED ALARM ON. CALL LIGHT WITHIN REACH. WILL ENDORSE TO NEXT SHIFT
--- NOTE | 2019-09-30 07:15 | NUR ---
RN OPENING NOTES PATIENT IN BED. A/OX 3, TONGAN/YI SPEAKING, ABLE TO MAKE BASIC NEEDS KNOWN. TOLERATING ROOM AIR. RESPIRATIONS ARE EVEN AND UNLABORED. NO SOB. NOT IN ANY FORM OF DISTRESS. IV ACCESS INTACT AND PATENT. KEPT PATIENT SAFE AND COMFORTABLE. ABDUCTOR PILLOW IN PLACE. BED IS LOW AND LOCKED, HOB ELEVATED IN SEMI FOWLERS, SIDE RAILS UPX2, DVT PUMPS ON, BED ALARM ON. CALL LIGHT WITHIN REACH. WILL CONTINUE TO MONITOR ACCORDINGLY.
[2019-09-30 08:00] VITALS: BP 130/60
[2019-09-30] MEDS ORDERED: MAG30ORA PO (08:15)
[2019-09-30] MEDS ORDERED: *INS REG SQ (08:15)
[2019-09-30] MEDS ORDERED: Blood Sugar Diagnostic IN (08:15)
[2019-09-30] MEDS ORDERED: ACET325T53 PO (08:15)
[2019-09-30] MEDS ORDERED: HYDR-3972 PO (08:15)
[2019-09-30] MEDS ORDERED: MAGN400O6 PO (08:15)
[2019-09-30] MEDS ORDERED: INSU100V28 SQ (08:15)
[2019-09-30] MEDS ORDERED: TEMA15CA5 PO (08:15)
[2019-09-30] MEDS ORDERED: ENOX40DI SQ (08:15)
[2019-09-30] MEDS ORDERED: DEXTROSE 50%-WATER 50 ML DISP.SYRIN IV PRN (08:30)
[2019-09-30] MEDS ORDERED: INSULIN REGULAR, HUMAN 100 UNIT/ML 3 ML VIAL SQ PRN (08:30)
[2019-09-30] MEDS ORDERED: *INSULIN REGULAR(HUMULIN R)HUM 100 UNIT/ML VIAL SQ PRN (08:30)
[2019-09-30] MEDS: GABAPENTIN 100 MG CAPSULE PO SCH ×2 (09:27→13:29)
[2019-09-30] MEDS: METFORMIN 500 MG TABLET PO SCH (09:27)
[2019-09-30 09:28] VITALS: BP 130/60
[2019-09-30] MEDS: METOPROLOL SUCCINATE 50 MG TAB.SR.24H PO SCH (09:28)
[2019-09-30] MEDS: ATORVASTATIN 10 MG TABLET PO SCH (09:30)
[2019-09-30] MEDS: ENOXAPARIN SODIUM 40 MG/0.4 ML DISP.SYRIN SQ SCH (09:30)
[2019-09-30] MEDS: Magnesium 1GM/D5W 100ML PREMIX 100 ML IV SCH ×2 (10:35→11:38)
[2019-09-30] MEDS ORDERED: BLOOD SUGAR DIAGNOSTIC 1 EACH STRIP VI SCH (12:00)
--- NOTE | 2019-09-30 12:42 | NUR ---
Compa Trujillo, at bedside changing left hip dressing. new dressing c/d/i.
--- NOTE | 2019-09-30 16:00 | NUR ---
discharged patient in stable condition picked up by ambulance crew. family at bedside and aware about DC. report given to [facility] nurseKassandra dc instructions given, verbalized understanding. Dc instructions given to patient and family as well, verbalized understanding. iv access removed, tip intact, no complications. name band removed.
== END 2019-09-30 16:00 | DRG 470 ==
LOC: ER 21:35 → MED 09-26 00:59
PROVIDERS: ADMIT Nurse Practitioner Acute Care; ATTEND Registered Nurse
PROC: 0SRS0JZ Replacement of Left Hip Joint, Femoral Surface with Synthetic Substitute, Open Approach (ICD-10-PCS; principal; 2019-09-28)
DX: S72.012A Unspecified intracapsular fracture of left femur, initial encounter for closed fracture (principal); N39.0 Urinary tract infection, site not specified; E87.1 Hypo-osmolality and hyponatremia; N17.9 Acute kidney failure, unspecified; Y92.009 Unspecified place in unspecified non-institutional (private) residence as the place of occurrence of the external cause; W01.0XXA Fall on same level from slipping, tripping and stumbling without subsequent striking against object, initial encounter; E11.51 Type 2 diabetes mellitus with diabetic peripheral angiopathy without gangrene; I10 Essential (primary) hypertension; I25.2 Old myocardial infarction; Z87.440 Personal history of urinary (tract) infections; Z91.14 Patient's other noncompliance with medication regimen; E83.42 Hypomagnesemia; K21.9 Gastro-esophageal reflux disease without esophagitis; Z95.0 Presence of cardiac pacemaker; D72.829 Elevated white blood cell count, unspecified; E88.09 Other disorders of plasma-protein metabolism, not elsewhere classified; E11.65 Type 2 diabetes mellitus with hyperglycemia; B96.89 Other specified bacterial agents as the cause of diseases classified elsewhere; Z79.84 Long term (current) use of oral hypoglycemic drugs
CPT/HCPCS: 36415; 71045-TC; 72170-TC; 73502; 73552; 80048-TC; 80053-TC; 80061-TC; 80076-TC; 81000-TC; 82962-TC; 83690-TC; 83735-TC; 84100-TC; 85025-TC; 85027-TC; 85730-TC; 86850-TC; 87081-TC; 87086-TC; 87186-TC; 88305-TC; 88311-TC; 93307-TC; 97110-TC; 97112-TC; 97530-TC; A4217; C1776; G0378; J0690; J0696; J1100; J1170; J1650; J1815; J2270; J2405; J2704; J2710; J3010; J3475; J3490; J7030; J7060; J7120

== ENCOUNTER 2022-06-27 10:30 | Emergency (ER) | payer MEDICARE, OTHER ==
[~2022-06-27] VITALS: Ht 152.4 cm; Wt 74.8 kg
[~2022-06-27 10:30] MED LIST changes: +*INS REG SQ; +ACET325T53 PO; +Blood Sugar Diagnostic IN; +ENOX40DI SQ; +HYDR-3972 PO; +INSU100V28 SQ; +MAG30ORA PO; +MAGN400O6 PO; +TEMA15CA5 PO
--- NOTE | 2022-06-27 10:37 | NUR ---
BIB RA frm home c/o diffused abdominal pain
[2022-06-27 10:59] LABS: BASOPHILS % (AUTO) 0.4 % (0.0-2.0); EOSINOPHILS % (AUTO) 0.3 % (0.0-6.0); HEMATOCRIT 34 % (33-45); HEMOGLOBIN 11.4 g/dL (11.5-14.8); LYMPHOCYTES # (AUTO) 1.5 K/uL (0.8-4.8); LYMPHOCYTES % (AUTO) 19.4 % (20.0-44.0); MEAN CORPUSCULAR HGB CONC 34 g/dl (31.0-36.0); MEAN CORPUSCULAR VOLUME 89 fL (82-100); MONOCYTES # (AUTO) 0.4 K/uL (0.1-1.30); MONOCYTES % (AUTO) 4.7 % (2.0-12.0); NEUTROPHILS # (AUTO) 5.9 K/uL (1.8-8.9); NEUTROPHILS % (AUTO) 75.2 % (43.0-81.0); PLATELET COUNT (AUTO) 279 K/uL (150-450); RED BLOOD CELL COUNT(AUTO) 3.77 MIL/uL (4.0-5.2); WHITE BLOOD COUNT (AUTO) 7.8 K/uL (4.3-11.0)
--- NOTE | 2022-06-27 11:00 | NUR ---
PHLEB AT BEDSIDE FOR BLOOD DRAW
--- NOTE | 2022-06-27 11:00 | NUR ---
FOLLEY CATHETER PLACED , COLLECTED URINE SAMPLE LABELED AND SENT TO LAB
--- NOTE | 2022-06-27 11:09 | NUR ---
CD MIXER AT BED SIDE
--- NOTE | 2022-06-27 11:15 | NUR ---
TAKEN TO CT
[2022-06-27 11:17] LABS: ALANINE AMINOTRANSFERASE 11 U/L (12-78); ALBUMIN 3.7 g/dL (3.4-5.0); ALKALINE PHOSPHATASE 78 U/L (46-116); ASPARTATE AMINOTRANSFERASE 8 U/L (15-37); BILIRUBIN,DIRECT 0.1 mg/dL (0.0-0.2); BILIRUBIN,TOTAL 0.6 mg/dL (0.2-1.0); CALCIUM, SERUM 9.1 mg/dL (8.5-10.1); CARBON DIOXIDE 20 mmol/L (21-32); CHLORIDE 104 mmol/L (98-107); CREATININE 1.4 mg/dL (0.6-1.3); GLUCOSE 225 mg/dL (74-106); LIPASE 52 U/L (73-393); POTASSIUM 5.1 mmol/L (3.5-5.1); SODIUM SERUM 137 mmol/L (136-145); TOTAL PROTEIN, SERUM 8.1 g/dL (6.4-8.2); UREA NITROGEN, BLOOD 30 mg/dL (7-18)
--- NOTE | 2022-06-27 11:23 | NUR ---
LACTIC ACID 3.0 MD MADE AWARE
[2022-06-27] MEDS ORDERED: IV NS 0.9% 1,000 ML IV ONE (11:30)
--- NOTE | 2022-06-27 11:40 | NUR ---
ESTABLISHED IV LINE LEFT AC 20G
[2022-06-27 11:43] LABS: BILIRUBIN,URINE NEGATIVE (NEGATIVE); COLOR,URINE YELLOW (YELLOW); LEUKOCYTE ESTERASE ,URINE 2+ (NEGATIVE); NITRITE, URINE NEGATIVE (NEGATIVE); PROTEIN,URINE 2+ mg/dl (NEGATIVE); UGLUCOSE TRACE mg/dL (NEGATIVE); UROBILINOGEN,URINE 0.2 EU/dL (0.2)
--- NOTE | 2022-06-27 12:16 | NUR ---
FOLLOWED UP RESULT OF XRAY W/ RADIOLOGY
[2022-06-27 12:42] LABS: BACTERIA,URINE Moderate /HPF (None Seen); SQUAMOUS EPITHELIAL CELL,UR Few /HPF (None Seen); WBC,URINE TOO NUMEROUS TO COUN /HPF (0-3)
[2022-06-27] MEDS ORDERED: SULF1TAB48 PO ×2 (12:51→13:43)
--- NOTE | 2022-06-27 13:15 | NUR ---
F.CATHETER REMOVED ORDERED
--- NOTE | 2022-06-27 14:08 | NUR ---
Patient discharged to home in stable condition. Written and verbal after care instructions given. Patient verbalizes understanding of instruction.
[2022-06-27 14:09] VITALS: BP 134/79
== END 2022-06-27 14:09 | disposition home or self-care (01) ==
LOC: ER 10:44
DX: N39.0 Urinary tract infection, site not specified (principal); R14.0 Abdominal distension (gaseous); R10.84 Generalized abdominal pain; I10 Essential (primary) hypertension; E11.9 Type 2 diabetes mellitus without complications; Z90.89 Acquired absence of other organs; Z88.8 Allergy status to other drugs, medicaments and biological substances; Z79.899 Other long term (current) drug therapy
CPT/HCPCS: 99285; 74176; 96360; 71045; 51701; 85025; 80048; 87086; 83605; 83690; 80076; 87106; 81001; 36415; J7030

== ENCOUNTER 2023-01-17 14:23 | Inpatient (IN) | payer MEDICARE, OTHER ==
[~2023-01-17] VITALS: Ht 152.4 cm; Wt 53.7 kg
[~2023-01-17 14:23] MED LIST changes: +SULF1TAB48 PO
--- NOTE | 2023-01-17 14:30 | NUR ---
BIBRA 889 C/O ABDOMINAL PAIN/ PELVIC PAIN X 1 MONTH, HAS BECOME WORSE. BURNIGN SENSATION OFF PELVIC AREA AND CONSTIPATION. PT STATES THAT SHE HAS HX OF HAVING UTIS AND NOTES DISCOLARATION OF URINE AT TIME. ATTACHED TO MONITOR, VITALS ARE WITHIN NORMAL LIMITS. AWAITING MD MOISE.
--- NOTE | 2023-01-17 14:40 | NUR ---
IV ESTABLISHED R WRIST 20G. SALINE IS LOCKED.
--- NOTE | 2023-01-17 14:55 | NUR ---
URINE COLLECTED AND SENT
[2023-01-17 15:55] LABS: BASOPHILS % (AUTO) 0.4 % (0.0-2.0); EOSINOPHILS % (AUTO) 0.4 % (0.0-6.0); HEMATOCRIT 35 % (33-45); HEMOGLOBIN 11.4 g/dL (11.5-14.8); LYMPHOCYTES # (AUTO) 1.8 K/uL (0.8-4.8); LYMPHOCYTES % (AUTO) 20.1 % (20.0-44.0); MEAN CORPUSCULAR HGB CONC 32 g/dl (31.0-36.0); MEAN CORPUSCULAR VOLUME 92 fL (82-100); MONOCYTES # (AUTO) 0.4 K/uL (0.1-1.30); MONOCYTES % (AUTO) 4.6 % (2.0-12.0); NEUTROPHILS # (AUTO) 6.8 K/uL (1.8-8.9); NEUTROPHILS % (AUTO) 74.5 % (43.0-81.0); PLATELET COUNT (AUTO) 302 K/uL (150-450); RED BLOOD CELL COUNT(AUTO) 3.85 MIL/uL (4.0-5.2); WHITE BLOOD COUNT (AUTO) 9.1 K/uL (4.3-11.0)
[2023-01-17 15:56] LABS: BILIRUBIN,URINE NEGATIVE (NEGATIVE); COLOR,URINE YELLOW (YELLOW); LEUKOCYTE ESTERASE ,URINE 3+ (NEGATIVE); NITRITE, URINE NEGATIVE (NEGATIVE); PROTEIN,URINE 1+ mg/dl (NEGATIVE); UGLUCOSE NEGATIVE (NEGATIVE); UROBILINOGEN,URINE 0.2 EU/dL (0.2)
[2023-01-17 16:14] LABS: POTASSIUM 4.9 mmol/L (3.5-5.1)
[2023-01-17 16:23] LABS: ALBUMIN 3.7 g/dL (3.4-5.0); BILIRUBIN,DIRECT 0.1 mg/dL (0.0-0.2); BILIRUBIN,TOTAL 0.5 mg/dL (0.2-1.0); TOTAL PROTEIN, SERUM 8.9 g/dL (6.4-8.2)
[2023-01-17] MEDS ORDERED: IOHEXOL-300 100 ML VIAL IV ONE (16:32)
[2023-01-17] MEDS ORDERED: IV NS 0.9% 250 ML IV ONE (16:32)
[2023-01-17] MEDS ORDERED: CT SWABBABLE VALVE TRANS SET 1 EA INFUS.SET MC ONE (16:33)
[2023-01-17 16:39] LABS: BACTERIA,URINE 3+ /HPF (None Seen); WBC,URINE 81-100 /HPF (0-3)
[2023-01-17] MEDS ORDERED: CEFTRIAXONE 1 G in IV D5W 50 ML IV ONE (17:30)
[2023-01-17] MEDS ORDERED: CEFTRIAXONE 1GM BAG (ER ONLY) 50 ML IV ONE (17:58)
[2023-01-17] MEDS ORDERED: MORPHINE SULFATE INJ 4 MG/ML DISP.SYRIN ONE (17:58)
[2023-01-17] MEDS ORDERED: MORPHINE SULFATE INJ 2 MG/ML DISP.SYRIN IV ONE (18:00)
[2023-01-17] MEDS ORDERED: IV NS 0.9% 1,000 ML BAG IV ONE (18:00)
--- NOTE | 2023-01-17 18:10 | NUR ---
covid test collected and sent
[2023-01-17] MEDS ORDERED: BENA20TA9 PO (18:32)
[2023-01-17] MEDS ORDERED: METO-358 PO (18:32)
[2023-01-17] MEDS ORDERED: INSU100I24 SQ (18:32)
[2023-01-17] MEDS ORDERED: ERGO500093 PO (18:32)
[2023-01-17] MEDS ORDERED: ASPI-1420 PO (18:32)
--- NOTE | 2023-01-17 19:39 | NUR ---
HowardOx4, Omani speaking, able to express concerns. Haris states she is in pain 8/10, abdominal pain. Discussed plan of care, haris verbalized agreement.
[2023-01-17] MEDS ORDERED: PHENAZOPYRIDINE HCL 200 MG TABLET PO ONE (20:00)
[2023-01-17] MEDS ORDERED: PHENAZOPYRIDINE HCL 200 MG TABLET ONE (20:16)
[2023-01-17] MEDS ORDERED: DEXTROSE 50%-WATER 50 ML DISP.SYRIN IV PRN (21:30)
[2023-01-17] MEDS ORDERED: MAG HYDROX/AL HYDROX/SIMETH 30 ML UDC PO PRN (21:30)
[2023-01-17] MEDS ORDERED: ZOLPIDEM TARTRATE 5 MG TABLET PO PRN (21:30)
[2023-01-17] MEDS ORDERED: MAGNESIUM HYDROXIDE 30 ML UDC PO PRN (21:30)
[2023-01-17] MEDS ORDERED: Z GUARD REMEDY 4 OZ OINT TP PRN (21:30)
--- NOTE | 2023-01-17 21:43 | NUR ---
Report given to CVic/RN 3 alburnett, patient ready for transfer.
[2023-01-17] MEDS: BLOOD SUGAR DIAGNOSTIC 1 EACH STRIP IN SCH (22:00)
--- NOTE | 2023-01-17 22:30 | NUR ---
MS RN OPENING NOTES: RECEIVED PATIENT VIA GURNEY FROM ER AWAKE ON STABLE CONDITION, PLACED IN BED COMFORTABLY, BED IN LOW POSITION, CALL LIGHTS WITHIN REACH, NO COMPLAIN OF PAIN AND DISCOMFORT AT THIS TIME ON ROOM AIR SATURATING WELL, PATIENT IS A/O X3-4 ECUADOREAN SPEAKING, WITH LITTLE KHMER, SKIN ASSESSMENT DONE AND PICTURE TAKEN, INVENTORIES DONE AND SIGNED, IV LINE AT RIGHT HAND#22 WITH ONGOING 0.9NS@ 75ML/HR INFUSING WELL, PATIENT WAS ORIENTED TO ROOM REMIND PATIENT TO USE NEREIDA LIGHTS WHEN NEEDED ASSISTANCE, PATIENT KEPT CLEAN AND DRY ALL NEEDS MET WILL CONTINUE TO MONITOR.
[2023-01-17 23:10] VITALS: BP 109/76
--- NOTE | 2023-01-17 23:12 | NUR ---
RN NOTES: BLOOD SUGAR-94/ NO INSULIN GIVEN PER SLIDING SCALE.
[2023-01-17] MEDS: IV NS 0.9% 1,000 ML IV PRN (23:53)
[2023-01-18] MEDS: MORPHINE SULFATE INJ 2 MG/ML DISP.SYRIN IV PRN (02:28)
[2023-01-18 06:25] LABS: BASOPHILS # (AUTO) 0.1 K/uL (0.0-0.2); BASOPHILS % (AUTO) 0.5 % (0.0-2.0); EOSINOPHILS % (AUTO) 0.6 % (0.0-6.0); HEMATOCRIT 28 % (33-45); HEMOGLOBIN 9.4 g/dL (11.5-14.8); LYMPHOCYTES # (AUTO) 2.3 K/uL (0.8-4.8); MEAN CORPUSCULAR HGB CONC 33 g/dl (31.0-36.0); MEAN CORPUSCULAR VOLUME 89 fL (82-100); MONOCYTES # (AUTO) 0.6 K/uL (0.1-1.30); MONOCYTES % (AUTO) 5.8 % (2.0-12.0); NEUTROPHILS # (AUTO) 6.7 K/uL (1.8-8.9); NEUTROPHILS % (AUTO) 69.1 % (43.0-81.0); PLATELET COUNT (AUTO) 254 K/uL (150-450); RED BLOOD CELL COUNT(AUTO) 3.16 MIL/uL (4.0-5.2); WHITE BLOOD COUNT (AUTO) 9.6 K/uL (4.3-11.0)
--- NOTE | 2023-01-18 06:45 | NUR ---
RN NOTES: BLOOD SUGAR-83/ NO INSULIN GIVEN PER SLIDING SCALE.
--- NOTE | 2023-01-18 06:45 | NUR ---
MS RN CLOSING NOTES: PATIENT SLEEP IN BED COMFORTABLY, AROUSABLE TO VERBAL STIMULI, BED IN LOW POSITION CALL LIGHTS WITHIN REACH, NO COMPLAIN OF PAIN AND DISCOMFORT AT THIS TIME, ON ROOM AIR SATURATING WELL, IV LINE AT RIGHT HAND #20 WITH ONGOING 0.9NSS@75ML/HR INFUSING WELL, PATIENT KEPT CLEAN AND DRY ALL NEEDS MET ENDORSE TO INCOMING SHIFT.
[2023-01-18 06:46] LABS: CALCIUM, SERUM 8.9 mg/dL (8.5-10.1); CREATININE 0.8 mg/dL (0.6-1.3); MAGNESIUM 1.4 mg/dL (1.8-2.4); POTASSIUM 4.7 mmol/L (3.5-5.1)
--- NOTE | 2023-01-18 07:20 | NUR ---
ms rn received patient on bed, awake,alert,oriented x4, macanese speaking lady, came in w/ UTI,complaining of pain upon urination, urine colored selina, pain meds give po. on room air w/ adequate saturation. will monitor patient's condition.
[2023-01-18 07:30] VITALS: BP 140/61
[2023-01-18] MEDS: BLOOD SUGAR DIAGNOSTIC 1 EACH STRIP IN SCH ×4 (07:30→21:28)
[2023-01-18] MEDS: HYDROCODONE/APAP 10/325MG TABLET PO PRN ×2 (09:01→21:22)
[2023-01-18] MEDS: METOPROLOL SUCCINATE 50 MG TAB.SR.24H PO SCH (09:02)
[2023-01-18] MEDS: ASPIRIN EC 81 MG TABLET.DR PO SCH (09:02)
[2023-01-18] MEDS: BENAZEPRIL HCL 20 MG TABLET PO SCH (09:03)
--- NOTE | 2023-01-18 09:30 | NUR ---
ms rubi breakfast served,due meds given,tolerated well, on room air, w/ good saturation noted.
[2023-01-18] MEDS: PHENAZOPYRIDINE HCL 200 MG TABLET PO SCH ×3 (09:38→17:57)
[2023-01-18] MEDS ORDERED: MAGNESIUM OXIDE 400 MG TABLET PO ONE (10:00)
[2023-01-18] MEDS ORDERED: DIATR MEGLU/DIATRIZOATE SODIUM 30 ML BOTTLE (GASTROGRAPHIN) ONE (10:29)
[2023-01-18] MEDS ORDERED: CT SWABBABLE VALVE TRANS SET 1 EA INFUS.SET MC ONE (10:51)
[2023-01-18] MEDS ORDERED: IV NS 0.9% 250 ML IV ONE (10:51)
[2023-01-18] MEDS ORDERED: IOHEXOL-350 100 ML VIAL IV ONE (10:51)
[2023-01-18] MEDS: INSULIN REGULAR, HUMAN 100 UNIT/ML 3 ML VIAL SQ PRN ×3 (13:06→21:27)
--- NOTE | 2023-01-18 13:30 | NUR ---
ms rn was seen by iain nunez np, w/naren made and carriedout.
[2023-01-18] MEDS: IV NS 0.9% 1,000 ML IV PRN (13:48)
[2023-01-18 16:00] VITALS: BP 109/58
[2023-01-18] MEDS: CEFTRIAXONE 1 G in IV D5W 50 ML IV SCH (17:56)
[2023-01-18] MEDS: GLUCERNA SHAKE 237 ML CAN PO SCH (18:09)
--- NOTE | 2023-01-18 19:00 | NUR ---
ms rn on bed,all needs attended.
[2023-01-18 20:00] VITALS: BP 120/43
--- NOTE | 2023-01-18 20:00 | NUR ---
MS FUR STYLIST INITIAL NOTES Received pt in bed awake and alert watching TV at this time. Not in any acute distress noted. Pt have IVF of NS at 75ml/hr infusing on her right forearm patent and intact. Pt denies any pain at this time. Pt showed something inside the small plastic bag and telling that her stone from last week that came out when she urinate and she mentioned that she showed up to her doctor as well. Skin warm and dry to touch , no edema noted. Kept her warm and comfortable at all times. Re-oriented her how to used the call light system and pt understood well. Bed in low and lock in position with side rails x2 up. place call light at reach. will continue monitoring.
--- NOTE | 2023-01-18 21:30 | NUR ---
MS GINA NOTES PT CALLED AND ASKING FOR PAIN MEDICATION , NORCO TABLET GIVEN PO ORDERED. SNACKS ALSO OFFERED. WILL CONTINUE MONITORING.
[2023-01-19] MEDS: IV NS 0.9% 1,000 ML IV PRN (04:50)
[2023-01-19 05:59] LABS: BASOPHILS % (AUTO) 0.4 % (0.0-2.0); EOSINOPHILS % (AUTO) 1.4 % (0.0-6.0); HEMATOCRIT 27 % (33-45); HEMOGLOBIN 8.9 g/dL (11.5-14.8); LYMPHOCYTES # (AUTO) 2.1 K/uL (0.8-4.8); MEAN CORPUSCULAR HGB CONC 33 g/dl (31.0-36.0); MEAN CORPUSCULAR VOLUME 89 fL (82-100); MONOCYTES # (AUTO) 0.6 K/uL (0.1-1.30); MONOCYTES % (AUTO) 6.3 % (2.0-12.0); NEUTROPHILS % (AUTO) 67.9 % (43.0-81.0); PLATELET COUNT (AUTO) 253 K/uL (150-450); RED BLOOD CELL COUNT(AUTO) 3.05 MIL/uL (4.0-5.2); WHITE BLOOD COUNT (AUTO) 8.8 K/uL (4.3-11.0)
[2023-01-19 06:07] LABS: CALCIUM, SERUM 8.7 mg/dL (8.5-10.1); CREATININE 1.1 mg/dL (0.6-1.3); MAGNESIUM 1.8 mg/dL (1.8-2.4); PHOSPHORUS 4.6 mg/dL (2.5-4.9); POTASSIUM 4.7 mmol/L (3.5-5.1)
[2023-01-19] MEDS: BLOOD SUGAR DIAGNOSTIC 1 EACH STRIP IN SCH ×4 (06:16→22:35)
[2023-01-19] MEDS: INSULIN REGULAR, HUMAN 100 UNIT/ML 3 ML VIAL SQ PRN ×4 (06:17→22:33)
--- NOTE | 2023-01-19 07:24 | NUR ---
MS DATABASE ADMINISTRATION ASSOCIATE CLOSING NOTES PT RESTING COMFORTABLY IN BED AFTER MORNING CARE DONE. IVF NS AT 75ML/HR INFUSING AT THIS TIME. DENIES ANY PAIN OR ANY DISCOMFORT . ALL DUE MEDS GIVEN AND ALL NEEDS MET. BLOOD SUGAR DONE 113 NO INSULIN DUE AT THIS TIME. KEPT HER WARM AND COMFORTABLE AT ALL TIMES. WILL ENDORSE TO AM NURSE FOR CONTINUITY OF CARE.
--- NOTE | 2023-01-19 07:30 | NUR ---
ms rn received on bed, awake,alert,oriented x4,not in any form of distress, Greenlandic speaking lady, came in w/ UTI, on iv atb at this time, denies pain, no fever,no nausea, tolerating diet well, will monitor patient, call light w/in reach, bed on lock position.
[2023-01-19 08:00] VITALS: BP 148/73
[2023-01-19] MEDS: ASPIRIN EC 81 MG TABLET.DR PO SCH (09:10)
[2023-01-19] MEDS: PHENAZOPYRIDINE HCL 200 MG TABLET PO SCH ×3 (09:10→17:28)
[2023-01-19] MEDS: METOPROLOL SUCCINATE 50 MG TAB.SR.24H PO SCH (09:10)
[2023-01-19] MEDS: BENAZEPRIL HCL 20 MG TABLET PO SCH (09:10)
[2023-01-19] MEDS: GLUCERNA SHAKE 237 ML CAN PO SCH ×3 (09:11→17:28)
--- NOTE | 2023-01-19 09:30 | NUR ---
ms venegas breakfast served,due meds given,tolerated well.
--- NOTE | 2023-01-19 15:00 | NUR ---
ms rn on bed, no distress noted, family at bedside.
[2023-01-19] MEDS: CEFTRIAXONE 1 G in IV D5W 50 ML IV SCH (17:28)
--- NOTE | 2023-01-19 19:31 | NUR ---
ms rn on bed, all needs attended,no distress noted.
--- NOTE | 2023-01-19 19:40 | NUR ---
MS RN OPENING NOTE RECEIVED PATIENT AWAKE IN BED. PT A/O X 3-4, GREENLANDIC SPEAKING MOSTLY, ABLE TO MAKE NEEDS KNOWN. NO S/S OF SOB, OR RESPIRATORY DISTRESS NOTED. NO COMPLAIN OF PAIN AND DISCOMFORT AT THIS TIME. ON ROOM AIR, SATURATING WELL. IV LINE TO RIGHT HAND #20G WITH ONGOING 0.9 NS @75ML/HR, IV INFUSING WELL. SAFETY MEASURES IMPLEMENTED. BED IN LOW POSITION, SR UP X2, CALL LIGHT WITHIN REACH. WILL CONTINUE TO MONITOR PT.
[2023-01-19 20:00] VITALS: BP 109/58
[2023-01-20] MEDS: MORPHINE SULFATE INJ 2 MG/ML DISP.SYRIN IV PRN ×3 (00:45→17:51)
--- NOTE | 2023-01-20 00:45 | NUR ---
MS RN NOTE PT REPORTS PAIN TO ABDOMEN. MORPHINE ADMINISTERED TO PT.
[2023-01-20] MEDS: ONDANSETRON HCL/PF 4 MG/2 ML VIAL IVP PRN (01:05)
--- NOTE | 2023-01-20 01:05 | NUR ---
MS RN NOTE PT HAD AN EPISODE OF NAUSEA, AND VOMITING. ZOFRAN ADMINISTERED TO PT.
[2023-01-20 06:04] LABS: BASOPHILS % (AUTO) 0.2 % (0.0-2.0); HEMATOCRIT 30 % (33-45); HEMOGLOBIN 9.5 g/dL (11.5-14.8); LYMPHOCYTES # (AUTO) 0.9 K/uL (0.8-4.8); MEAN CORPUSCULAR HGB CONC 32 g/dl (31.0-36.0); MEAN CORPUSCULAR VOLUME 90 fL (82-100); MONOCYTES # (AUTO) 1.5 K/uL (0.1-1.30); NEUTROPHILS # (AUTO) 28.1 K/uL (1.8-8.9); NEUTROPHILS % (AUTO) 91.8 % (43.0-81.0); PLATELET COUNT (AUTO) 333 K/uL (150-450); RED BLOOD CELL COUNT(AUTO) 3.29 MIL/uL (4.0-5.2)
[2023-01-20 06:33] LABS: CALCIUM, SERUM 8.5 mg/dL (8.5-10.1); CARBON DIOXIDE 17 mmol/L (21-32); CHLORIDE 107 mmol/L (98-107); CREATININE 1.4 mg/dL (0.6-1.3); GLUCOSE 201 mg/dL (74-106); MAGNESIUM 1.7 mg/dL (1.8-2.4); PHOSPHORUS 3.8 mg/dL (2.5-4.9); POTASSIUM 5.2 mmol/L (3.5-5.1); SODIUM SERUM 136 mmol/L (136-145); UREA NITROGEN, BLOOD 20 mg/dL (7-18)
[2023-01-20] MEDS: INSULIN REGULAR, HUMAN 100 UNIT/ML 3 ML VIAL SQ PRN ×4 (06:38→22:11)
[2023-01-20 06:40] LABS: WHITE BLOOD COUNT (AUTO) 30.6 K/uL (4.3-11.0)
--- NOTE | 2023-01-20 06:50 | NUR ---
MS RN CLOSING NOTE LEFT PATIENT AWAKE IN BED. PT A/O X 3-4, BULGARIAN SPEAKING MOSTLY, ABLE TO MAKE NEEDS KNOWN. NO S/S OF SOB, OR RESPIRATORY DISTRESS NOTED. NO COMPLAIN OF PAIN AND DISCOMFORT AT THIS TIME. ON ROOM AIR, SATURATING WELL. IV LINE TO RIGHT HAND #20G WITH ONGOING 0.9 NS @75ML/HR, IV INFUSING WELL. ALL NEEDS MET, AND MEDS GIVEN. SAFETY MEASURES IMPLEMENTED. BED IN LOW POSITION, SR UP X2, CALL LIGHT WITHIN REACH. WILL ENDORSE PATIENT TO MORNING SHIFT NURSE FOR CONTINUITY OF CARE.
[2023-01-20] MEDS: BLOOD SUGAR DIAGNOSTIC 1 EACH STRIP IN SCH ×4 (07:02→21:44)
--- NOTE | 2023-01-20 07:31 | NUR ---
MS RN OPENING NOTES: RECEIVED PATIENT ASLEEP, EASILY ROUSED, A/O X 3, CHADIAN SPEAKING WITH SOME ECUADOREAN, ABLE TO MAKE NEEDS KNOWN. ON RA WITH NO S/S OF SOB, OR RESPIRATORY DISTRESS NOTED, DENIES INTOLERABLE PAIN AT THIS TIME. IV ACCESS AT RIGHT HAND #20G RUNNING NS @75ML/HR. SAFETY MEASURES IMPLEMENTED. BED IN LOW POSITION, SR UP X2, CALL LIGHT AND TABLE WITHIN REACH; WILL CONT WITH PLAN OF CARE DURING SHIFT.
[2023-01-20] MEDS ORDERED: MEROPENEM 1 G in IV NS 0.9% 100 ML IV SCH (08:30)
[2023-01-20] MEDS ORDERED: IV NS 0.9% 500 ML IV ONE (08:30)
[2023-01-20 08:40] VITALS: BP 99/58
[2023-01-20] MEDS: ASPIRIN EC 81 MG TABLET.DR PO SCH (08:48)
[2023-01-20] MEDS: METOPROLOL SUCCINATE 50 MG TAB.SR.24H PO SCH (09:00)
[2023-01-20] MEDS: BENAZEPRIL HCL 20 MG TABLET PO SCH (09:00)
--- NOTE | 2023-01-20 09:00 | NUR ---
RN NOTES: HELD AM BP MEDICATION D/T LOW BP= 93/58, HR =104, MD AWARE
[2023-01-20] MEDS: GLUCERNA SHAKE 237 ML CAN PO SCH ×3 (09:04→16:44)
[2023-01-20 09:18] LABS: BASOPHILS % (AUTO) 0.1 % (0.0-2.0); HEMATOCRIT 30 % (33-45); HEMOGLOBIN 9.6 g/dL (11.5-14.8); LYMPHOCYTES # (AUTO) 0.9 K/uL (0.8-4.8); LYMPHOCYTES % (AUTO) 2.8 % (20.0-44.0); MEAN CORPUSCULAR HGB CONC 32 g/dl (31.0-36.0); MEAN CORPUSCULAR VOLUME 90 fL (82-100); MONOCYTES # (AUTO) 1.3 K/uL (0.1-1.30); MONOCYTES % (AUTO) 3.8 % (2.0-12.0); NEUTROPHILS # (AUTO) 30.6 K/uL (1.8-8.9); NEUTROPHILS % (AUTO) 93.3 % (43.0-81.0); PLATELET COUNT (AUTO) 325 K/uL (150-450); RED BLOOD CELL COUNT(AUTO) 3.36 MIL/uL (4.0-5.2)
[2023-01-20 09:22] LABS: WHITE BLOOD COUNT (AUTO) 32.8 K/uL (4.3-11.0)
[2023-01-20] MEDS ORDERED: MAGNESIUM OXIDE 400 MG TABLET PO ONE (10:00)
[2023-01-20] MEDS: HYDROCODONE/APAP 10/325MG TABLET PO PRN (10:21)
--- NOTE | 2023-01-20 10:33 | NUR ---
RN NOTES; PT C/O LOWER ABD PAIN 03/28, MEDICATED ORDERED WILL REASSESS PER PROTOCOL
[2023-01-20] MEDS ORDERED: SODIUM POLYSTYRENE SULF. PWD 15 GM UDC PO ONE (11:00)
[2023-01-20] MEDS: MEROPENEM 500 MG in IV NS 0.9% 50 ML IV SCH ×2 (12:30→21:43)
[2023-01-20 12:49] LABS: BAND % (MANUAL) 2 % (0.0-5.0); BASOPHILS % (MANUAL) 0 % (0.0-2.0); EOSINOPHILS % (MANUAL) 0 % (0-4); LYMPHOCYTES % (MANUAL) 4 % (16-48); MONOCYTES % (MANUAL) 6 % (0-11.0); NEUTROPHILS % (MANUAL) 86 (42-76)
--- NOTE | 2023-01-20 12:49 | NUR ---
RN NOTES: PT C/O OF CHEST DISCOMFORT AND DIFFICULTY BREATHING, PT GIVEN 3L OF O2 VIA NC, O2 SAT STABLE AT 96%, MEDICATED WITH IV MORPHINE, MD IS AWARE WILL REASSESS PER PROTOCOL
[2023-01-20] MEDS: IV NS 0.9% 1,000 ML IV PRN (16:13)
[2023-01-20 16:15] VITALS: BP 92/53
--- NOTE | 2023-01-20 18:37 | NUR ---
MS RN NOTES PATIENT ASLEEP, EASILY ROUSED, A/O X 3, ITALIAN SPEAKING WITH SOME NORTH KOREAN, HAS PERIODS OF CONFUSION, ABLE TO MAKE NEEDS KNOWN. ON 2L OF O2 VIA NC, NO S/S OF SOB, OR RESPIRATORY DISTRESS NOTED, DENIES INTOLERABLE PAIN AT THIS TIME. IV ACCESS AT RIGHT HAND #20G RUNNING NS @75ML/HR. ALL NEDS MET, KEPT CLEAN, DRY AND COMFORTABLE. ALL SAFETY MEASURES IMPLEMENTED, WILL ENDORSE TO PM SHIFT.
--- NOTE | 2023-01-20 19:30 | NUR ---
MS RN OPENING NOTE RECEIVED PATIENT SLEEPING IN BED, EASILY TO AROUSE. PT A/O X 3-4, COOK ISLANDER SPEAKING MOSTLY, ABLE TO MAKE NEEDS KNOWN. NO S/S OF SOB, OR RESPIRATORY DISTRESS NOTED. NO COMPLAIN OF PAIN AND DISCOMFORT AT THIS TIME. ON ROOM AIR, SATURATING WELL. IV ACCESS TO RIGHT HAND #20G WITH ONGOING 0.9 NS @75ML/HR, IV INFUSING WELL. SAFETY MEASURES IMPLEMENTED. BED IN LOW POSITION, SR UP X2, CALL LIGHT WITHIN REACH. WILL CONTINUE TO MONITOR PT.
[2023-01-20 20:00] VITALS: BP 93/44
[2023-01-21] MEDS: BLOOD SUGAR DIAGNOSTIC 1 EACH STRIP IN SCH ×2 (06:31→12:10)
[2023-01-21] MEDS: INSULIN REGULAR, HUMAN 100 UNIT/ML 3 ML VIAL SQ PRN ×3 (06:33→16:59)
--- NOTE | 2023-01-21 06:35 | NUR ---
RN CLOSING NOTE PT LEFT IN STABLE CONDITION. WILL ENDORSE PT TO INCOMING SHIFT NURSE FOR CONTINUITY OF CARE.
[2023-01-21 07:03] LABS: BASOPHILS % (AUTO) 0.1 % (0.0-2.0); HEMATOCRIT 28 % (33-45); HEMOGLOBIN 9.2 g/dL (11.5-14.8); LYMPHOCYTES # (AUTO) 1.6 K/uL (0.8-4.8); LYMPHOCYTES % (AUTO) 7.9 % (20.0-44.0); MEAN CORPUSCULAR HGB CONC 33 g/dl (31.0-36.0); MEAN CORPUSCULAR VOLUME 91 fL (82-100); MONOCYTES # (AUTO) 1.5 K/uL (0.1-1.30); MONOCYTES % (AUTO) 7.4 % (2.0-12.0); NEUTROPHILS # (AUTO) 16.7 K/uL (1.8-8.9); NEUTROPHILS % (AUTO) 84.6 % (43.0-81.0); PLATELET COUNT (AUTO) 286 K/uL (150-450); RED BLOOD CELL COUNT(AUTO) 3.13 MIL/uL (4.0-5.2); WHITE BLOOD COUNT (AUTO) 19.7 K/uL (4.3-11.0)
--- NOTE | 2023-01-21 07:20 | NUR ---
RN OPENING NOTE RECIEVED PATIENT SLEEPING ON BED, ON ROOM AIR WITH NO SOB OR SIGNS OF RESPIRATORY DISTRESS. WITH IV ACCES ON RIGHT HAND #20G WITH NS AT 75ML/HR. SAFTEY MEASURE IN PLACE, BED IN LOWER LOCKED POSITION, SIDERAILS UP X2, CALL LIGHT WITHIN REACH. WILL CONITNUE TO MONITOR.
[2023-01-21 07:23] LABS: CALCIUM, SERUM 8.5 mg/dL (8.5-10.1); CARBON DIOXIDE 18 mmol/L (21-32); CHLORIDE 107 mmol/L (98-107); CREATININE 1.7 mg/dL (0.6-1.3); GLUCOSE 267 mg/dL (74-106); MAGNESIUM 2.1 mg/dL (1.8-2.4); PHOSPHORUS 3.7 mg/dL (2.5-4.9); POTASSIUM 4.7 mmol/L (3.5-5.1); SODIUM SERUM 137 mmol/L (136-145); UREA NITROGEN, BLOOD 32 mg/dL (7-18)
[2023-01-21] MEDS: IV NS 0.9% 1,000 ML IV PRN (07:29)
[2023-01-21 07:30] VITALS: BP 125/79
[2023-01-21] MEDS: MEROPENEM 500 MG in IV NS 0.9% 50 ML IV SCH (08:24)
[2023-01-21] MEDS: BENAZEPRIL HCL 20 MG TABLET PO SCH (08:24)
[2023-01-21] MEDS: METOPROLOL SUCCINATE 50 MG TAB.SR.24H PO SCH (08:24)
[2023-01-21] MEDS: ASPIRIN EC 81 MG TABLET.DR PO SCH (08:24)
[2023-01-21] MEDS: MORPHINE SULFATE INJ 2 MG/ML DISP.SYRIN IV PRN ×3 (08:26→17:17)
--- NOTE | 2023-01-21 08:26 | NUR ---
RN NOTE PATIENT IS IN PAIN 8/10 SCALE. ADMISTER MORPHINE SULFATE IVP PRN. WILL CONTINUE TO MONITOR AND ASSESS PATIENT.
[2023-01-21] MEDS: GLUCERNA SHAKE 237 ML CAN PO SCH ×3 (08:33→16:41)
[2023-01-21] MEDS: ERGOCALCIFEROL (VITAMIN D 2) 50,000 UNIT CAPSULE PO SCH (08:36)
[2023-01-21] MEDS ORDERED: NA PHOS,M-B/NA PHOS,DI-BA 1 EA ENEMA RC ONE (12:30)
[2023-01-21] MEDS ORDERED: FUROSEMIDE 20 MG/2 ML VIAL IV SCH (12:30)
--- NOTE | 2023-01-21 12:38 | NUR ---
RN NOTE PATIENT IS IN PAIN 9/10 SCALE. ADMINISTER MORPHINE SULFATE IVP PRN. WILL CONTINUE TO MONITOR AND ASSESS PATIENT.
[2023-01-21] MEDS ORDERED: DEXTROSE 50%-WATER 50 ML DISP.SYRIN IV PRN (13:00)
[2023-01-21] MEDS: BLOOD SUGAR DIAGNOSTIC 1 EACH STRIP VI SCH ×2 (16:41→22:27)
--- NOTE | 2023-01-21 18:30 | NUR ---
RN CLOSING NOTE PATIENT AWAKE A/0 X4, ARMENINA SPEAKING. ON MODERATE HIGH BACK REST. ON OXYGEN AT 2L/MIN VIA NASAL CANNULA, WITH NO SOB OR SIGNS OF RESPIRATORY DISTRESS. WITH IV ACCES ON LEFT FOREARM #20G WITH NS AT 75ML/HR. KEPT PATIENT COMFORTABLE IN BED, PAIN MEDICATION GIVEN ORDERED, DUE MEDS GIVEN. SAFTEY MEASURE IN PLACE, BED IN LOWER LOCKED POSITION, SIDERAILS UP X2, CALL LIGHT WITHIN REACH. ENDORSED TO GAS ENGINE OPERATOR COMPRESSORS.
--- NOTE | 2023-01-21 19:30 | NUR ---
MS [facility]RO[facility] CLOSING NOTE RECEIVED PATIENT AWAKE, FAMILY AT BEDSIDE. A/O X3, VIETNAMESE-SPEAKING. ON MODERATE HIGH BACK REST. ON OXYGEN AT 2L/MIN VIA NASAL CANNULA, WITH NO SOB OR SIGNS OF RESPIRATORY DISTRESS. DENIES PAIN AT THIS TIME. WITH IV ACCES ON LEFT FOREARM #20G WITH NS AT 75ML/HR. SAFETY MEASURE IN PLACE: BED LOCKED AND IN LOWEST POSITION, SIDERAILS UP X2, BED ALARM ON, CALL LIGHT AND TRAY TABLE WITHIN REACH. WILL CONTINUE TO MONITOR AND ASSIST. Addendum: 01/22/23 at 0207 by JOLIE RIVERA RN CORRECTION: MS [facility] OPENING NOTE
[2023-01-21 20:00] VITALS: BP 111/66
[2023-01-21] MEDS: CEFTRIAXONE 1 G in IV D5W 50 ML IV SCH (21:11)
[2023-01-21] MEDS: *INSULIN REGULAR(HUMULIN R)HUM 100 UNIT/ML VIAL SQ PRN (22:19)
[2023-01-21] MEDS: ACETAMINOPHEN 325 MG TABLET PO PRN (22:21)
--- NOTE | 2023-01-21 22:25 | NUR ---
RN NOTE: PT C/O GAS AND LOWER ABDOMINAL PAIN AROUND BLADDER AND BURNING SENSATION AROUND URETHRA AREA. REQUESTING TYLENOL FOR PAIN. OFFERED SIMETHICONE FOR GAS, PATIENT ACCEPTED. TOLERATED MEDS WELL. PER PT AND HER SON (RONA) EARLIER, PT UNABLE TO VOID DURING THE DAY. SMALL AMOUNT OF URINE NOTED IN CHUCKS. WILL PERFORM BLADDER SCAN. Addendum: 01/21/23 at 2254 by JOLIE RIVERA RN CORRECTION: PT WAS ABLE TO URINATE A LOT DURING THE DAY AFTER LASIX ADMIN BUT HAS SINCE BEEN UNABLE TO URINATE PRIOR TO START OF EVENING SHIFT.
[2023-01-21] MEDS: SIMETHICONE 80 MG TAB.CHEW PO PRN (22:28)
--- NOTE | 2023-01-21 22:45 | NUR ---
RN NOTE: ENDORSED CONTINUITY OF CARE TO KEVIN SOMMERS RN DUE TO ASSIGNMENT CHANGES IN UNIT.
--- NOTE | 2023-01-21 23:23 | NUR ---
BLADDER SCAN UNKNOWN TIME LAST VOIDED URINE Patient voided urine at 2300, incontinent pad soaked with urine. Post void residual 26ml, patient denies pain during procedure.
[2023-01-22] MEDS: IV NS 0.9% 1,000 ML IV PRN ×2 (03:10→23:22)
--- NOTE | 2023-01-22 06:36 | NUR ---
END OF SHIFT REPORT Patient in bed, Alert Oriented x2. Oxygen sat high 90's in 2L NC. LFA IV peripheral line intact, IVF continuous. On IV abx Afebrile during the night. Patient voided urine, unable to send specimen as urine vol not enough for test. Bladder scan performed, post void residual 18ml at 0630am. Patient denies suprapubic pain. ACCU CHECK ACHS with sliding scale parameters give. Fall precaution maintained. Will endorse to oncoming RN.
[2023-01-22] MEDS: BLOOD SUGAR DIAGNOSTIC 1 EACH STRIP VI SCH ×4 (06:42→21:09)
[2023-01-22] MEDS: INSULIN REGULAR, HUMAN 100 UNIT/ML 3 ML VIAL SQ PRN ×2 (06:42→12:15)
[2023-01-22 07:00] VITALS: BP 95/53
[2023-01-22 07:05] LABS: BASOPHILS # (AUTO) 0.1 K/uL (0.0-0.2); BASOPHILS % (AUTO) 0.3 % (0.0-2.0); EOSINOPHILS % (AUTO) 0.2 % (0.0-6.0); HEMATOCRIT 27 % (33-45); HEMOGLOBIN 8.7 g/dL (11.5-14.8); LYMPHOCYTES # (AUTO) 2.9 K/uL (0.8-4.8); LYMPHOCYTES % (AUTO) 13.4 % (20.0-44.0); MEAN CORPUSCULAR HGB CONC 32 g/dl (31.0-36.0); MEAN CORPUSCULAR VOLUME 93 fL (82-100); MONOCYTES # (AUTO) 1.4 K/uL (0.1-1.30); MONOCYTES % (AUTO) 6.6 % (2.0-12.0); NEUTROPHILS # (AUTO) 16.9 K/uL (1.8-8.9); NEUTROPHILS % (AUTO) 79.5 % (43.0-81.0); PLATELET COUNT (AUTO) 306 K/uL (150-450); RED BLOOD CELL COUNT(AUTO) 2.94 MIL/uL (4.0-5.2); WHITE BLOOD COUNT (AUTO) 21.2 K/uL (4.3-11.0)
[2023-01-22 07:13] LABS: CALCIUM, SERUM 8.5 mg/dL (8.5-10.1); CARBON DIOXIDE 17 mmol/L (21-32); CHLORIDE 107 mmol/L (98-107); CREATININE 1.9 mg/dL (0.6-1.3); GLUCOSE 170 mg/dL (74-106); MAGNESIUM 2.2 mg/dL (1.8-2.4); PHOSPHORUS 5.3 mg/dL (2.5-4.9); POTASSIUM 4.9 mmol/L (3.5-5.1); SODIUM SERUM 135 mmol/L (136-145); UREA NITROGEN, BLOOD 45 mg/dL (7-18)
--- NOTE | 2023-01-22 07:25 | NUR ---
MS RN OPENING NOTE RECEIVED PATIENT AWAKE IN BED, A/O X2. ABLE TO MAKE NEEDS KNOWN. NO SIGNS OF ACUTE DISTRESS NOTED. PATIENT DENIES ANY PAIN AT THIS TIME. ON ROOM AIR TOLERATING WELL; NO SOB, BREATHING EVEN AND UNLABORED. NOTED WITH IV ACCES ON LEFT FOREARM #20G RUNNING WITH NS AT 75ML/HR. SAFETY MEASURE IN PLACE; BED IN LOW AND LOCKED POSITION, SIDE RAILS UP X2, CALL LIGHT WITHIN REACH. WILL CONTINUE WITH PLAN OF CARE.
[2023-01-22] MEDS: GLUCERNA SHAKE 237 ML CAN PO SCH ×3 (08:21→17:23)
[2023-01-22] MEDS: BENAZEPRIL HCL 20 MG TABLET PO SCH (09:00)
[2023-01-22] MEDS: METOPROLOL SUCCINATE 50 MG TAB.SR.24H PO SCH (09:00)
[2023-01-22] MEDS: ASPIRIN EC 81 MG TABLET.DR PO SCH (09:02)
[2023-01-22] MEDS: HYDROCODONE/APAP 10/325MG TABLET PO PRN ×2 (09:09→23:27)
--- NOTE | 2023-01-22 09:09 | NUR ---
MS RN NOTE PATIENT COMPLAINED OF PAIN AND ASKED FOR PAIN MEDICATION; ADMINISTERED NORCO PRN ORDERED; PATIENT TOLERATED WELL AND WITH NO SIGNS OF DISCOMFORT NOTED; WILL CONTINUE TO MONITOR.
[2023-01-22 14:50] LABS: THYROID STIMULATING HORMONE 4.313 uIU/mL (0.358-3.74)
[2023-01-22 16:01] VITALS: BP 121/59
--- NOTE | 2023-01-22 17:20 | NUR ---
RUG SHAMPOOERMANAGER EMBALMER FUNERAL DIRECTOR NOTES PATIENT DISCHARGED ORDERED BY DR. LEBRON SANCHES. PICKED UP BY 2EMT VIA GURNEY. KEPT IV ACCES AND ZULUAGA CATHETER IN PLACE. PATIENT IS IN STABLE CONDITION. PATIENT REFUSED PHOTO DOCUMENTATION OF ABDOMINAL BRUISES. [facility] TEACH[facility]. BELONGINGS ENDORSED TO EMT AND PATIENT. PATIENT WILL BE TRANSFERRED AT [facility]. ENDORSED TO LIZETTE [facility] AT [phone]. ENDORSED ACCORDINGLY. Addendum: 01/22/23 at 1810 by HARRIETT EMERY RN ERROR; KINDLY DISREGARD
--- NOTE | 2023-01-22 18:45 | NUR ---
MS RN CLOSING NOTE PATIENT IN BED, ASLEEP BUT EASY TO AROUSE; A/O X2. ABLE TO MAKE NEEDS KNOWN. NO SIGNS OF ACUTE DISTRESS NOTED. PATIENT DENIES ANY PAIN AT THIS TIME. ON ROOM AIR TOLERATED WELL; NO SOB, BREATHING EVEN AND UNLABORED. NOTED WITH IV ACCES ON LEFT FOREARM #20G RUNNING WITH NS AT 75ML/HR, CLEAN, DRY AND INTACT; FLUSHING WELL. ALL DUE MEDS GIVEN. ALL NURSING NEEDS ATTENDED. SAFETY MEASURE IMPLEMENTED; BED IN LOW AND LOCKED POSITION, SIDE RAILS UP X2, CALL LIGHT WITHIN REACH. WILL ENDORSE TO ENLISTED AIRCREW/AERIAL OBSERVER/GUNNER NURSE FOR CONTINUITY OF CARE.
--- NOTE | 2023-01-22 19:50 | NUR ---
RN MS NOTES RECEIVED PATIENT IN BED, A/O X 2-3 TELUGU SPEAKING, CONFUSED AND YELLING. HOOKED TO OXYGEN VIA NASAL CANNULA AT 2LPM SATURATING AT 96%. NO EPISODES OF SOB/ NOTED AT THIS TIME. INCONTINENT WITH NO BM AND 20ML URINE OUTPUT FROM THE AM SHIFT. ON PUREWICK NO URINE OUTPUT NOTED AT THIS TIME. ON CONSISTENT CARB DIET PATIENT ATE SMALL AMOUNT VERBALIZED BY THE RELATIVES. PATIENT IS IN PAIN AND COMPLAINING OF BURNING SENSATION AT THIS TIME. FOR 24 HOURS URINE COLLECTION, FOR OCCULT FECAL BLOOD COLLECTION. KEPT BED ON LOWER LOCKED POSITION, KEPT SIDE RAILS UP X 2 ALL THE TIME, KEPT CALL LIGHT WITHIN AT REACH. WILL CONTINUE TO MONITOR.
[2023-01-22 20:00] VITALS: BP 150/75
--- NOTE | 2023-01-22 20:10 | NUR ---
RN BLADDER SCAN NOTES PATIENT COMPLAIN OF PAIN AND BURNING SENSATION AT THIS TIME. BLADDER SCAN DONE WITH URINE RETENTION NOTED. DR. NAGULO MADE AWARE. WITH ORDER MADE AND CARRIED OUT. INSERTED INDWELLING ZULUAGA CATHETER F16 CONNECTED TO URINE BAG NOTED URINE OUTPUT WITH INITIAL OUTPUT OF 50ML. HOT ANC COLD PACKED APPLIED ALTERNATELY AT BLADDER SITE FOR COMFORT MEASURES. WILL CONTINUE TO MONITOR.
[2023-01-22] MEDS: CEFTRIAXONE 1 G in IV D5W 50 ML IV SCH (20:58)
[2023-01-22] MEDS: MORPHINE SULFATE INJ 2 MG/ML DISP.SYRIN IV PRN (21:09)
--- NOTE | 2023-01-22 21:10 | NUR ---
RN MS NOTES PATIENT COMPLAIN OF PAIN IN ABDOMINAL AREA WITH PAIN SCALE OF 10/10. MORPHINE SULFATE 1MG GIVEN WASTE OF EXCESS MEDICATION DONE WITH AMERICA MOLINA RN. WILL CONTINUE TO MONITOR
--- NOTE | 2023-01-22 23:28 | NUR ---
RN NOTES PATIENT COMPLAIN OF PATIENT AND YELLING FOR PAIN MEDICATIONS. NORCO TABLET GIVEN AND TOLERATED BY THE PATIENT. NO ASPIRATION NOTED. WILL CONTINUE TO MONITOR
[2023-01-23 02:20] LABS: OCCULT BLOOD STOOL NEGATIVE (NEGATIVE)
[2023-01-23 05:34] LABS: CREATININE, URINE 545.8 MG/DL (30.0-125.0)
[2023-01-23] MEDS: HYDROCODONE/APAP 10/325MG TABLET PO PRN ×2 (05:42→13:57)
[2023-01-23 06:11] LABS: BILIRUBIN,URINE 2+ (NEGATIVE); COLOR,URINE AMBER (YELLOW); LEUKOCYTE ESTERASE ,URINE TRACE (NEGATIVE); NITRITE, URINE POSITIVE (NEGATIVE); PROTEIN,URINE 3+ mg/dl (NEGATIVE); UGLUCOSE 1+ mg/dL (NEGATIVE); UROBILINOGEN,URINE >=8.0 EU/dL (0.2)
[2023-01-23 06:19] LABS: BACTERIA,URINE Few /HPF (None Seen); SQUAMOUS EPITHELIAL CELL,UR Few /HPF (None Seen); WBC,URINE 21-50 /HPF (0-3)
[2023-01-23 06:20] LABS: EOSINOPHIL,URINE None Seen
[2023-01-23 06:22] LABS: BASOPHILS # (AUTO) 0.1 K/uL (0.0-0.2); BASOPHILS % (AUTO) 0.4 % (0.0-2.0); EOSINOPHILS % (AUTO) 0.7 % (0.0-6.0); HEMATOCRIT 27 % (33-45); HEMOGLOBIN 8.7 g/dL (11.5-14.8); LYMPHOCYTES # (AUTO) 2.6 K/uL (0.8-4.8); LYMPHOCYTES % (AUTO) 13.8 % (20.0-44.0); MEAN CORPUSCULAR HGB CONC 33 g/dl (31.0-36.0); MEAN CORPUSCULAR VOLUME 90 fL (82-100); MONOCYTES # (AUTO) 1.1 K/uL (0.1-1.30); NEUTROPHILS % (AUTO) 79.1 % (43.0-81.0); PLATELET COUNT (AUTO) 366 K/uL (150-450); RED BLOOD CELL COUNT(AUTO) 2.96 MIL/uL (4.0-5.2); WHITE BLOOD COUNT (AUTO) 18.9 K/uL (4.3-11.0)
--- NOTE | 2023-01-23 06:32 | NUR ---
RN MS CLOSING NOTES PATIENT IS IN BED, A/O X 3 GREENLANDIC SPEAKING WITH EPISODES OF CONFUSIONS. HOOKED TO OXYGEN VIA NASAL CANNULA T 2 LPM SATURATING WELL NO SOB/ NOTED AT THIS TIME. WITH IV ACCESS AT LFA #20G WITH NS 1L AT 75ML/HR INFUSING WELL NO SWELLING OR INFILTRATION NOTED AT THIS TIME. ON CONSISTENT CARB DIET NO ASPIRATION NOTED. WITH INDWELLING ZULUAGA CATHETER CONNECTED TO URINE BAG PLACED ON ICE FOR 24HR URINE COLLECTION. PAIN MANAGEMENT WELL DONE, ALL DUE MEDICATIONS GIVEN, ALL NEEDS ATTENDED.PM CARE RENDERED, TURN PATIENT EVERY 2 HOURS, KEPT BED ON LOWER LOCKED POSITION, KEPT SIDE RAILS UP X 2 ALL THE TIME, KEPT CALL LIGHT WITHIN AT REACH. WILL ENDORSED TO NEXT SHIFT FOR VIDYA.
[2023-01-23 06:35] LABS: CALCIUM, SERUM 8.3 mg/dL (8.5-10.1); CARBON DIOXIDE 18 mmol/L (21-32); CHLORIDE 104 mmol/L (98-107); CREATININE 1.4 mg/dL (0.6-1.3); GLUCOSE 130 mg/dL (74-106); MAGNESIUM 2.1 mg/dL (1.8-2.4); PHOSPHORUS 4.2 mg/dL (2.5-4.9); SODIUM SERUM 133 mmol/L (136-145); UREA NITROGEN, BLOOD 42 mg/dL (7-18)
[2023-01-23] MEDS: BLOOD SUGAR DIAGNOSTIC 1 EACH STRIP VI SCH ×4 (06:50→22:01)
[2023-01-23 07:30] VITALS: BP 133/70
--- NOTE | 2023-01-23 07:45 | NUR ---
OPENING NOTE PATIENT AWAKE A/Ox2, ETHIOPIAN SPEAKING. ON 2L OF NC WITH NO S/S OF SOB. IV ACCESS ON LFA 20G, RUNNING NS @75ML, INTACT AND PATENT, FLUSHING WELL. PAIN IN THE LOWER PELVIC AREA, PT REFUSED PAIN MEDICATION. SKIN INTACT WITH SACRAL REDNESS, CIRCULATORY EDEMA. ON BED REST USING A F/C.. FALL AND SAFETY PRECAUTIONS MAINTAINED: BED LOCKED AND AT THE LOWEST POSITION, SRx2, CALL LIGHT WITHIN REACH.
[2023-01-23 08:07] LABS: AFP, TUMOR MARKER <1.8 ng/mL (0.0-8.7); CARBOHYDRATE AG 19-9 53 U/mL (0-35)
[2023-01-23 08:07] LABS: IMMUNOGLOBULIN A, SERUM 381 mg/dL (64-422); IMMUNOGLOBULIN G, SERUM 1182 mg/dL (586-1602); IMMUNOGLOBULIN M, SERUM 153 mg/dL (26-217)
[2023-01-23] MEDS: GLUCERNA SHAKE 237 ML CAN PO SCH ×3 (09:26→17:02)
[2023-01-23] MEDS: ASPIRIN EC 81 MG TABLET.DR PO SCH (09:27)
[2023-01-23] MEDS: METOPROLOL SUCCINATE 50 MG TAB.SR.24H PO SCH (09:27)
[2023-01-23] MEDS: BENAZEPRIL HCL 20 MG TABLET PO SCH (09:28)
[2023-01-23 11:07] LABS: *SPE A/G RATIO 0.8 (0.7-1.7); *SPE ALPHA-1-GLOBULIN 0.4 g/dL (0.0-0.4); *SPE ALPHA-2-GLOBULIN 0.9 g/dL (0.4-1.0); *SPE BETA GLOBULIN 0.9 g/dL (0.7-1.3); *SPE M-SPIKE Not Observed g/dL (Not Observed)
[2023-01-23] MEDS: INSULIN REGULAR, HUMAN 100 UNIT/ML 3 ML VIAL SQ PRN (12:36)
[2023-01-23 15:30] VITALS: BP 126/48
[2023-01-23] MEDS: MORPHINE SULFATE INJ 2 MG/ML DISP.SYRIN IV PRN (17:58)
--- NOTE | 2023-01-23 18:02 | NUR ---
RN NOTE ADMINISTERED MORPHINE 1MG IV PUSH. PRIMARY NURSE AUBREY FUENTES IS AWARE.
[2023-01-23] MEDS: IV NS 0.9% 1,000 ML IV PRN (18:20)
--- NOTE | 2023-01-23 18:59 | NUR ---
CLOSING NOTE PATIENT AWAKE A/Ox2, BOTSWANAN SPEAKING. ON 2L OF NC WITH NO S/S OF SOB. IV ACCESS ON LFA 20G, RUNNING NS @75ML, CLEAN AND INTACT. PAIN IN THE LOWER PELVIC AREA, REMAINS, FOLLOWING PAIN MEDICATION REGIME ORDER/PER PT STATUS. URINE 24HR ANALYSIS, DUE 01/24/23 @0620. FALL AND SAFETY PRECAUTIONS MAINTAINED: BED LOCKED AND AT THE LOWEST POSITION, SRx2, CALL LIGHT WITHIN REACH.
--- NOTE | 2023-01-23 19:20 | NUR ---
maverick rn opening received patient in bed, HOB elevated, 2 family members at bedside feeding patient. patient is Georgian speaking. still c/o pain, Morphine given an hour ago by morning shift rn. patient has no s/s of apparent distress in room air at this time. IV NS running @75mls/hr on left FA #20g IV access. choi catheter draining clear, yellow urine via gravity. safety in place-- bed in lowest, locked position, call light within reach, side rails up X3, bed alarm in place. will continue with the plan of care for patient.
[2023-01-23 20:00] VITALS: BP 139/68
[2023-01-23] MEDS: CEFTRIAXONE 1 G in IV D5W 50 ML IV SCH (21:01)
[2023-01-23] MEDS: *INSULIN REGULAR(HUMULIN R)HUM 100 UNIT/ML VIAL SQ PRN (22:03)
[2023-01-24] MEDS: MORPHINE SULFATE INJ 2 MG/ML DISP.SYRIN IV PRN ×4 (01:51→17:14)
--- NOTE | 2023-01-24 01:54 | NUR ---
noc rn note- pain management patient screaming of pain in her abdomen, guarding site. Given Morphine 1mg as ordered PRN. Witnessed waste with MABEL Hernandez. in proper disposal bin. will re-assess.
[2023-01-24] MEDS: HYDROCODONE/APAP 10/325MG TABLET PO PRN ×4 (05:27→13:53)
--- NOTE | 2023-01-24 05:33 | NUR ---
NOC RN NOTE- NON-ADMIN PATIENT VOMITED THE NORCO PILL, SCREAMING OF PAIN AND ASKED FOR THE PILL SINCE IV MORPHINE NOT YET DUE. HAD TO NON-ADMINISTER IN THE SYSTEM AND WASTE IN THE OMNICELL WITH MABEL COPE. 1 TAB OF NORCO-10 WITH EMESIS WAS THROWN OUT. WILL MONITOR PATIENT. HOB ELEVATED ALL THE WAY. TO BE GIVEN ZOFRAN.
[2023-01-24] MEDS: ONDANSETRON HCL/PF 4 MG/2 ML VIAL IVP PRN (05:40)
--- NOTE | 2023-01-24 06:01 | NUR ---
noc rn note- pain and nausea management patient given morphine 1mg as ordered PRN for pain after given zofran 4mg as ordered PRN for nausea vomiting. will re-assess and continue to monitor patient.
--- NOTE | 2023-01-24 07:12 | NUR ---
RN OPENING NOTE RECEIVED PATIENT AWAKE A/OX3, PERSIAN SPEAKING, MINIMAL FRENCH. ON 2L OF NC WITH NO S/S OF SOB OR DISTRESS. IV ACCESS ON LFA 20G, RUNNING NS @75ML, CLEAN AND INTACT. PAIN IN THE LOWER PELVIC AREA. FOLLOWING PAIN MEDICATION REGIME ORDER/PER PT STATUS. URINE 24HR ANALYSIS, DUE 01/25/23 @0700. FALL AND SAFETY PRECAUTIONS MAINTAINED: BED LOCKED AND AT THE LOWEST POSITION, SIDE RAILSX2 CALL LIGHT WITHIN REACH. WILL CONTINUE TO MONITOR.
[2023-01-24] MEDS: BLOOD SUGAR DIAGNOSTIC 1 EACH STRIP VI SCH ×4 (07:17→22:39)
[2023-01-24] MEDS: INSULIN REGULAR, HUMAN 100 UNIT/ML 3 ML VIAL SQ PRN ×2 (07:18→12:42)
[2023-01-24] MEDS: GLUCERNA SHAKE 237 ML CAN PO SCH ×3 (08:06→17:53)
[2023-01-24 08:31] VITALS: BP 130/76
[2023-01-24] MEDS: BENAZEPRIL HCL 20 MG TABLET PO SCH (08:45)
[2023-01-24] MEDS: METOPROLOL SUCCINATE 50 MG TAB.SR.24H PO SCH (08:49)
[2023-01-24] MEDS: ASPIRIN EC 81 MG TABLET.DR PO SCH (08:49)
[2023-01-24 09:30] LABS: BASOPHILS % (AUTO) 0.1 % (0.0-2.0); EOSINOPHILS % (AUTO) 0.3 % (0.0-6.0); HEMATOCRIT 31 % (33-45); HEMOGLOBIN 9.9 g/dL (11.5-14.8); LYMPHOCYTES # (AUTO) 0.9 K/uL (0.8-4.8); LYMPHOCYTES % (AUTO) 5.9 % (20.0-44.0); MEAN CORPUSCULAR HGB CONC 32 g/dl (31.0-36.0); MEAN CORPUSCULAR VOLUME 90 fL (82-100); MONOCYTES # (AUTO) 0.9 K/uL (0.1-1.30); MONOCYTES % (AUTO) 5.6 % (2.0-12.0); NEUTROPHILS % (AUTO) 88.1 % (43.0-81.0); PLATELET COUNT (AUTO) 428 K/uL (150-450); RED BLOOD CELL COUNT(AUTO) 3.39 MIL/uL (4.0-5.2); WHITE BLOOD COUNT (AUTO) 15.9 K/uL (4.3-11.0)
[2023-01-24 09:49] LABS: CALCIUM, SERUM 8.3 mg/dL (8.5-10.1); CREATININE 1.2 mg/dL (0.6-1.3); POTASSIUM 5.4 mmol/L (3.5-5.1)
[2023-01-24] MEDS ORDERED: SODIUM POLYSTYRENE SULF. PWD 15 GM UDC PO ONE (16:00)
[2023-01-24 16:09] VITALS: BP 119/78
--- NOTE | 2023-01-24 18:42 | NUR ---
RN CLOSING NOTE PATIENT AWAKE A/OX3, HUNGARIAN SPEAKING, MINIMAL CITIZEN OF [place]. ON 2L OF NC WITH NO S/S OF SOB OR DISTRESS. IV ACCESS ON LFA 20G, RUNNING NS @75ML, CLEAN AND INTACT. PAIN IN THE LOWER PELVIC AREA. FOLLOWING PAIN MEDICATION REGIME ORDER/PER PT STATUS. URINE 24HR ANALYSIS, DUE 01/25/23 @0700. PERFORMED BLADDER SCAN WITH NO URINE RETENTION. POTASSIUM ELEVATED AT 5.4 ADMIN KAYEXALATE. FALL AND SAFETY PRECAUTIONS MAINTAINED: BED LOCKED AND AT THE LOWEST POSITION, SIDE RAILSX2 CALL LIGHT WITHIN REACH. WILL ENDORSE TO NOC SIFT FOR VIDYA.
--- NOTE | 2023-01-24 19:30 | NUR ---
MS RN OPENING NOTES RECEIVED PATIENT AWAKE IN BED. PATIENT IS A/O TIMES 2. CITIZEN OF [place] AND [place] SPEAKER. ABLE TO MAKE NEEDS KNOWN. NO PAIN NOTED. NO SOB NOTED. ON O2 INHALATION VIA NASAL CANNULA , O2 SAT NOTED 96%. EDEMA NOTED ON THE RIGHT ARM. ELEVATED TO DECREASE EDEMA. PATIENT IS ON ZULUAGA CATHETER. COLLECTING 24 HOUR URINE. THE END OF URINE COLLECTION WILL BE 0700 AM AT 01/25/23. KEPT COLLECTED URINE ON THE ICE. IV ACCESS ON THE LFA # 20 INTACT AND RUNNING NS AT 75 ML/HR. ALL SAFETY MEASURES IN PLACE. BED LOCKED IN THE LOWEST POSITION. CALL LIGHT AND TABLE IN EASY REACH. SIDE RAILS UP TIMES 2. BED ALARM ON. WILL CONTINUE TO MONITOR CLOSELY.
[2023-01-24 20:00] VITALS: BP 146/89
[2023-01-24] MEDS: CEFTRIAXONE 1 G in IV D5W 50 ML IV SCH (20:23)
--- NOTE | 2023-01-24 22:39 | NUR ---
RN NOTES BLOOD SUGAR CHECK FOR 2200 NOTED 137. HELD INSULIN FOR BEING NPO STARTING MIDNIGHT FOR MRI IN AM.
[2023-01-24] MEDS: SIMETHICONE 80 MG TAB.CHEW PO PRN (23:07)
--- NOTE | 2023-01-24 23:14 | NUR ---
RN NOTES PRN SIMETHICONE GIVEN FOR EXCESSIVE ABDOMINAL GAS AT 2307.
[2023-01-25] MEDS: IV NS 0.9% 1,000 ML IV PRN ×2 (03:46→23:11)
[2023-01-25] MEDS: MORPHINE SULFATE INJ 2 MG/ML DISP.SYRIN IV PRN (03:58)
--- NOTE | 2023-01-25 04:04 | NUR ---
RN NOTES PRN MORPHINE 0.5 ML GIVEN PER PATIENT REQUEST FOR PAIN 8/10 OF THE ABDOMEN. WILL ASSESS IN 30 MIN.
--- NOTE | 2023-01-25 06:07 | NUR ---
RN NOTES BLOOD SUGAR CHECKED NOTED 142. NO INSULIN GIVEN PATIENT IS NPO.
--- NOTE | 2023-01-25 06:08 | NUR ---
RN NOTES PATIENT HAS ORDER FOR MRI. CALLED SON AND HE STATED PATIENT HAS PACE MAKER. 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
--- NOTE | 2023-01-25 06:21 | NUR ---
MS RN CLOSING NOTES PATIENT AWAKE IN BED. PATIENT IS A/O TIMES 3. [place] AND [place] SPEAKER. ABLE TO MAKE NEEDS KNOWN. NO PAIN NOTED. NO SOB NOTED. ON O2 INHALATION VIA NASAL CANNULA ,AT 2L/MIN. O2 SAT NOTED 96%. ALL DUE MEDS GIVEN ORDERED.EDEMA NOTED ON THE RIGHT ARM. ELEVATED TO DECREASE EDEMA. PATIENT IS ON ZULUAGA CATHETER. COLLECTING 24 HOUR URINE. THE END OF URINE COLLECTION WILL BE 0700 AM AT 01/25/23. KEPT COLLECTED URINE ON THE ICE. IV ACCESS ON THE LFA # 20 INTACT AND RUNNING NS AT 75 ML/HR. ALL SAFETY MEASURES IN PLACE. BED LOCKED IN THE LOWEST POSITION. CALL LIGHT AND TABLE IN EASY REACH. SIDE RAILS UP TIMES 2. BED ALARM ON. WILL ENDORSE FOR VIDYA.
--- NOTE | 2023-01-25 07:15 | NUR ---
MS RN OPENING NOTES PATIENT AWAKE IN BED A/O TIMES 3. MEXICAN AND SPANISH SPEAKER. ABLE TO MAKE NEEDS KNOWN. NO PAIN NOTED. NO SOB NOTED. ON O2 INHALATION VIA NASAL CANNULA ,AT 2L/MIN. O2 SAT NOTED 96%. EDEMA NOTED ON THE RIGHT ARM. ELEVATED TO DECREASE EDEMA. PATIENT IS ON ZULUAGA CATHETER. COLLECTING 24 HOUR URINE. THE END OF URINE COLLECTION WILL BE 0700 AM AT 01/25/23. KEPT COLLECTED URINE ON THE ICE. IV ACCESS ON THE LFA # 20 INTACT AND RUNNING NS AT 75 ML/HR. ALL SAFETY MEASURES IN PLACE. BED LOCKED IN THE LOWEST POSITION. CALL LIGHT AND TABLE IN EASY REACH. SIDE RAILS UP TIMES 2. BED ALARM ON. WILL CONTINUE TO MONITOR FOR VIDYA.
[2023-01-25 07:26] LABS: BASOPHILS % (AUTO) 0.2 % (0.0-2.0); EOSINOPHILS % (AUTO) 0.5 % (0.0-6.0); HEMATOCRIT 33 % (33-45); HEMOGLOBIN 10.2 g/dL (11.5-14.8); LYMPHOCYTES # (AUTO) 1.5 K/uL (0.8-4.8); LYMPHOCYTES % (AUTO) 6.6 % (20.0-44.0); MEAN CORPUSCULAR HGB CONC 31 g/dl (31.0-36.0); MEAN CORPUSCULAR VOLUME 92 fL (82-100); MONOCYTES # (AUTO) 1.3 K/uL (0.1-1.30); MONOCYTES % (AUTO) 5.7 % (2.0-12.0); NEUTROPHILS # (AUTO) 19.5 K/uL (1.8-8.9); PLATELET COUNT (AUTO) 427 K/uL (150-450); RED BLOOD CELL COUNT(AUTO) 3.57 MIL/uL (4.0-5.2); WHITE BLOOD COUNT (AUTO) 22.4 K/uL (4.3-11.0)
--- NOTE | 2023-01-25 07:31 | NUR ---
WOUND CARE CONSULT: PT PRESENTS WITH RASH TO BUTTOCKS AND PERINEUM WHICH PT STATES IS ITCHING AND BURNING. RECOMMENDATIONS MADE FOR SKIN CARE AND PROTECTION. DISCUSSED WITH NURSING STAFF. IN AGREEMENT WITH PLAN OF CARE. Addendum: 01/25/23 at 0732 by FRANCISCO SCHULTZ WNDNU Amended: Links added.
[2023-01-25] MEDS: BLOOD SUGAR DIAGNOSTIC 1 EACH STRIP VI SCH ×4 (07:42→21:53)
--- NOTE | 2023-01-25 07:56 | NUR ---
RN NOTES 24 HOUR COLLECTED URINE ENDING TIME 0700 , 01/25/23 TOOK TO THE LAB AT 0755. KULWANT GOT THE URINE SAMPLE.
[2023-01-25 07:58] LABS: CALCIUM, SERUM 8.2 mg/dL (8.5-10.1); POTASSIUM 4.3 mmol/L (3.5-5.1)
[2023-01-25 08:18] VITALS: BP 150/70
[2023-01-25] MEDS: GLUCERNA SHAKE 237 ML CAN PO SCH ×3 (09:27→17:00)
[2023-01-25] MEDS: CLOTRIMAZOLE/BETAMETASONE DIPROPIONATE 15 GM TUBE TP SCH ×2 (09:30→17:30)
[2023-01-25] MEDS: METOPROLOL SUCCINATE 50 MG TAB.SR.24H PO SCH (09:48)
[2023-01-25] MEDS: ASPIRIN EC 81 MG TABLET.DR PO SCH (09:48)
[2023-01-25] MEDS: BENAZEPRIL HCL 20 MG TABLET PO SCH (09:49)
--- NOTE | 2023-01-25 15:35 | NUR ---
Confirmed that patient has pacemaker installed in 2017, family member sent a copy of the cardiac pacemaker ID card as requested. Charge nurse, made aware
[2023-01-25 16:11] VITALS: BP 144/73
--- NOTE | 2023-01-25 16:51 | NUR ---
MRI cannot be done due to pacemaker, charge nurse aware, informed
--- NOTE | 2023-01-25 19:00 | NUR ---
MS RN OPENING NOTES RECEIVED PATIENT AWAKE IN BED. SON AT THE BED SIDE.PATIENT IS A/O TIMES 2. ITALIAN SPEAKER. ABLE TO MAKE NEEDS KNOWN. NO PAIN NOTED. NO SOB NOTED. ON O2 INHALATION VIA NASAL CANNULA , O2 SAT NOTED 97%. EDEMA NOTED ON THE RIGHT ARM. PATIENT IS ON ZULUAGA CATHETER. COLLECTING 24 HOUR URINE. IV ACCESS ON THE LFA # 20 INTACT AND RUNNING NS AT 75 ML/HR. ALL SAFETY MEASURES IN PLACE. BED LOCKED IN THE LOWEST POSITION. CALL LIGHT AND TABLE IN EASY REACH. SIDE RAILS UP TIMES 2. BED ALARM ON. WILL CONTINUE TO MONITOR CLOSELY.
--- NOTE | 2023-01-25 19:39 | NUR ---
MS RN CLOSING NOTES PATIENT AWAKE IN BED. PATIENT IS A/O TIMES 3. PAPUA NEW GUINEAN AND CAMEROONIAN SPEAKER. ABLE TO MAKE NEEDS KNOWN. NO PAIN NOTED. NO SOB NOTED. ON O2 INHALATION VIA NASAL CANNULA ,AT 2L/MIN. O2 SAT NOTED 97%. ALL DUE MEDS GIVEN ORDERED. PATIENT IS ON ZULUAGA CATHETER. IV ACCESS ON THE LFA # 20 INTACT AND RUNNING NS AT 75 ML/HR. ALL SAFETY MEASURES IN PLACE. BED LOCKED IN THE LOWEST POSITION. CALL LIGHT AND TABLE IN EASY REACH. SIDE RAILS UP TIMES 2. BED ALARM ON. WILL ENDORSE FOR VIDYA.
[2023-01-25 20:00] VITALS: BP 141/68
[2023-01-25] MEDS: CEFTRIAXONE 1 G in IV D5W 50 ML IV SCH (20:17)
[2023-01-25] MEDS: *INSULIN REGULAR(HUMULIN R)HUM 100 UNIT/ML VIAL SQ PRN (22:18)
[2023-01-25] MEDS: HYDROCODONE/APAP 10/325MG TABLET PO PRN (23:07)
[2023-01-26] MEDS: SIMETHICONE 80 MG TAB.CHEW PO PRN (01:48)
[2023-01-26] MEDS: BLOOD SUGAR DIAGNOSTIC 1 EACH STRIP VI SCH ×4 (06:09→22:04)
--- NOTE | 2023-01-26 06:09 | NUR ---
RN NOTES BLOOD SUGAR CHECK RESULT IS 130. HELD INSULIN FOR POOR INTAKE.
[2023-01-26 06:13] LABS: BASOPHILS % (AUTO) 0.3 % (0.0-2.0); EOSINOPHILS % (AUTO) 1.1 % (0.0-6.0); HEMATOCRIT 27 % (33-45); HEMOGLOBIN 8.5 g/dL (11.5-14.8); LYMPHOCYTES # (AUTO) 1.3 K/uL (0.8-4.8); LYMPHOCYTES % (AUTO) 9.1 % (20.0-44.0); MEAN CORPUSCULAR HGB CONC 32 g/dl (31.0-36.0); MEAN CORPUSCULAR VOLUME 92 fL (82-100); MONOCYTES # (AUTO) 0.7 K/uL (0.1-1.30); MONOCYTES % (AUTO) 5.1 % (2.0-12.0); NEUTROPHILS # (AUTO) 12.3 K/uL (1.8-8.9); NEUTROPHILS % (AUTO) 84.4 % (43.0-81.0); PLATELET COUNT (AUTO) 343 K/uL (150-450); RED BLOOD CELL COUNT(AUTO) 2.91 MIL/uL (4.0-5.2); WHITE BLOOD COUNT (AUTO) 14.5 K/uL (4.3-11.0)
[2023-01-26 06:33] LABS: ALANINE AMINOTRANSFERASE 91 U/L (12-78); ALBUMIN 1.7 g/dL (3.4-5.0); ALKALINE PHOSPHATASE 79 U/L (46-116); ASPARTATE AMINOTRANSFERASE 39 U/L (15-37); BILIRUBIN,TOTAL 0.3 mg/dL (0.2-1.0); CALCIUM, SERUM 7.8 mg/dL (8.5-10.1); CARBON DIOXIDE 17 mmol/L (21-32); CHLORIDE 107 mmol/L (98-107); CREATININE 0.9 mg/dL (0.6-1.3); GLUCOSE 140 mg/dL (74-106); POTASSIUM 3.9 mmol/L (3.5-5.1); SODIUM SERUM 135 mmol/L (136-145); TOTAL PROTEIN, SERUM 5.2 g/dL (6.4-8.2); UREA NITROGEN, BLOOD 22 mg/dL (7-18)
--- NOTE | 2023-01-26 06:33 | NUR ---
MS RN CLOSING NOTES PATIENT AWAKE IN BED.PATIENT IS A/O TIMES 2. VENEZUELAN SPEAKER. ABLE TO MAKE NEEDS KNOWN. NO PAIN NOTED. NO SOB NOTED. ON O2 INHALATION VIA NASAL CANNULA , O2 SAT NOTED 98%. PATIENT IS ON ZULUAGA CATHETER. URINE OUTPUT NOTED 400 ML. IV ACCESS ON THE LFA # 20 INTACT AND RUNNING NS AT 75 ML/HR. ALL DUE MEDS GIVEN ORDER. ALL SAFETY MEASURES IN PLACE. BED LOCKED IN THE LOWEST POSITION. CALL LIGHT AND TABLE IN EASY REACH. SIDE RAILS UP TIMES 2. BED ALARM ON. WILL ENDORSE FOR VIDYA.
--- NOTE | 2023-01-26 07:45 | NUR ---
MS RN OPENING NOTES RECEIVED PATIENT AWAKE IN BED. PATIENT IS A/O TIMES 2-3. AZERBAIJANI SPEAKING. ABLE TO MAKE NEEDS KNOWN. NO PAIN NOTED. NO SOB NOTED. ON O2 INHALATION VIA NASAL CANNULA , O2 SAT NOTED 98%. EDEMA NOTED ON THE RIGHT ARM. PATIENT IS ON ZULUAGA CATHETER. IV ACCESS ON THE LFA G# 20 INTACT, PATENT AND RUNNING NS AT 75 ML/HR. ALL SAFETY MEASURES IN PLACE. BED LOCKED IN THE LOWEST POSITION. CALL LIGHT AND TABLE IN EASY REACH. SIDE RAILS UP X2. BED ALARM ON. WILL CONTINUE TO MONITOR PATIENT.
[2023-01-26 08:00] VITALS: BP 133/64
[2023-01-26] MEDS: GLUCERNA SHAKE 237 ML CAN PO SCH ×3 (08:02→17:06)
[2023-01-26] MEDS: BENAZEPRIL HCL 20 MG TABLET PO SCH (09:00)
[2023-01-26] MEDS: METOPROLOL SUCCINATE 50 MG TAB.SR.24H PO SCH (09:02)
[2023-01-26] MEDS: CLOTRIMAZOLE/BETAMETASONE DIPROPIONATE 15 GM TUBE TP SCH ×2 (09:03→16:54)
[2023-01-26] MEDS: ASPIRIN EC 81 MG TABLET.DR PO SCH (09:04)
[2023-01-26] MEDS: INSULIN REGULAR, HUMAN 100 UNIT/ML 3 ML VIAL SQ PRN ×2 (12:24→17:11)
[2023-01-26 16:00] VITALS: BP 139/64
--- NOTE | 2023-01-26 19:00 | NUR ---
MS RN OPENING NOTES PATIENT AWAKE IN BED DRINKING ENSURE. PATIENT IS A/O TIMES 2-3. GREENLANDIC SPEAKING. ABLE TO MAKE NEEDS KNOWN. NO PAIN NOTED. NO SOB NOTED. ON O2 INHALATION VIA NASAL CANNULA , O2 SAT NOTED 98%. EDEMA NOTED ON THE RIGHT ARM. PATIENT IS ON ZULUAGA CATHETER. IV ACCESS ON THE LFA G# 20 INTACT, PATENT AND RUNNING NS AT 75 ML/HR. ALL SAFETY MEASURES IN PLACE. BED LOCKED IN THE LOWEST POSITION. CALL LIGHT AND TABLE IN EASY REACH. SIDE RAILS UP X2. BED ALARM ON. WILL ENDORSE TO THE MANAGER RETENTION NURSE FOR VIDAY.
--- NOTE | 2023-01-26 19:30 | NUR ---
MS RN OPENING NOTES - RECEIVED PATIENT SLEEPING, EASY TO AROUSE. A/O X2-3, [place] SPEAKING. BREATHING EVEN AND NON-LABORED ON ROOM AIR. NO C/O PAIN OR DISCOMFORT AT THIS TIME. HAS LEFT FOREARM IV ACCESS #20G WITH NS ON HOLD PER PATIENT'S REQUEST. NO S/S OF INFILTRATION NOTED. HAS INDWELLING ZULUAGA CATHETER DRAINING URINE TO BAG BY GRAVITY. SAFETY PRECAUTIONS IN PLACE: BED LOCKED AND IN LOW POSITION, SIDE RAILS UP X2, CALL LIGHT WITHIN REACH. WILL CONTINUE PLAN OF CARE.
[2023-01-26 20:00] VITALS: BP 138/76
[2023-01-26] MEDS: CEFTRIAXONE 1 G in IV D5W 50 ML IV SCH (21:09)
[2023-01-26] MEDS: *INSULIN REGULAR(HUMULIN R)HUM 100 UNIT/ML VIAL SQ PRN (22:02)
[2023-01-27] MEDS: HYDROCODONE/APAP 10/325MG TABLET PO PRN ×3 (01:03→19:35)
--- NOTE | 2023-01-27 01:10 | NUR ---
C/O SEVERE LOWER ABDOMINAL PAIN. PRN NORCO 10-325MG GIVEN AND TOLERATED WELL.
[2023-01-27] MEDS: IV NS 0.9% 1,000 ML IV PRN (01:16)
--- NOTE | 2023-01-27 05:52 | NUR ---
PRN NORCO 10-325 GIVEN FOR LOWER ABDOMEN/PERINEUM PAIN.
[2023-01-27 05:57] LABS: BASOPHILS # (AUTO) 0.1 K/uL (0.0-0.2); BASOPHILS % (AUTO) 0.5 % (0.0-2.0); EOSINOPHILS % (AUTO) 1.7 % (0.0-6.0); HEMATOCRIT 25 % (33-45); HEMOGLOBIN 8.1 g/dL (11.5-14.8); LYMPHOCYTES # (AUTO) 1.4 K/uL (0.8-4.8); LYMPHOCYTES % (AUTO) 10.9 % (20.0-44.0); MEAN CORPUSCULAR HGB CONC 32 g/dl (31.0-36.0); MEAN CORPUSCULAR VOLUME 90 fL (82-100); MONOCYTES # (AUTO) 0.8 K/uL (0.1-1.30); MONOCYTES % (AUTO) 6.5 % (2.0-12.0); NEUTROPHILS % (AUTO) 80.4 % (43.0-81.0); PLATELET COUNT (AUTO) 381 K/uL (150-450); WHITE BLOOD COUNT (AUTO) 12.5 K/uL (4.3-11.0)
[2023-01-27 06:20] LABS: CALCIUM, SERUM 8.1 mg/dL (8.5-10.1); CREATININE 0.8 mg/dL (0.6-1.3); POTASSIUM 3.8 mmol/L (3.5-5.1)
--- NOTE | 2023-01-27 06:53 | NUR ---
MS RN CLOSING NOTES - PATIENT DOZING INTERMITTENTLY. ABLE TO VERBALIZE NEEDS. NO CARDIAC OR RESPIRATORY DISTRESS THROUGHOUT THE NIGHT. SATURATING AT 95% ON ROOM AIR. HAD MINOR PAIN RELIEF. AFEBRILE. RE-INSERTED IV ACCESS TO RIGHT HAND #22G WITH NS RUNNING AT 75 ML/HR. INTACT, PATENT AND FLUSHING. CLOUDY DARK YELLOW URINE NOTED, 575 ML OUTPUT. ALL DUE MEDS GIVEN AND NEEDS ATTENDED. SAFETY PRECAUTIONS MAINTAINED. WILL ENDORSE TO AM RN FOR VIDYA.
[2023-01-27] MEDS: BLOOD SUGAR DIAGNOSTIC 1 EACH STRIP VI SCH ×4 (06:56→22:10)
[2023-01-27] MEDS: INSULIN REGULAR, HUMAN 100 UNIT/ML 3 ML VIAL SQ PRN ×3 (06:56→16:48)
[2023-01-27 07:00] VITALS: BP 129/56
--- NOTE | 2023-01-27 07:38 | NUR ---
MS RN OPENING NOTES PATIENT AWAKE IN BED. PATIENT IS A/O TIMES 2-3. SINHALA SPEAKING. ABLE TO MAKE NEEDS KNOWN. NO PAIN NOTED AT THIS TIME. NO SOB NOTED. ON ROOM AIR AND TOLERATING WELL. EDEMA NOTED ON THE RIGHT ARM. PATIENT IS ON ZULUAGA CATHETER. IV ACCESS ON THE LFA G# 20 INTACT, PATENT AND RUNNING NS AT 75 ML/HR. ALL SAFETY MEASURES IN PLACE. BED LOCKED IN THE LOWEST POSITION. CALL LIGHT AND TABLE IN EASY REACH. SIDE RAILS UP X2. BED ALARM ON. WILL CONTINUE TO MONITOR PATIENT.
[2023-01-27] MEDS: GLUCERNA SHAKE 237 ML CAN PO SCH ×3 (08:14→17:08)
[2023-01-27] MEDS: ASPIRIN EC 81 MG TABLET.DR PO SCH (08:22)
[2023-01-27] MEDS: METOPROLOL SUCCINATE 50 MG TAB.SR.24H PO SCH (08:22)
[2023-01-27] MEDS: BENAZEPRIL HCL 20 MG TABLET PO SCH (08:23)
[2023-01-27] MEDS: CLOTRIMAZOLE/BETAMETASONE DIPROPIONATE 15 GM TUBE TP SCH ×2 (08:24→16:09)
[2023-01-27] MEDS: FLUCONAZOLE (100 MG) 100 MG TABLET PO SCH (13:01)
[2023-01-27 16:00] VITALS: BP 148/83
--- NOTE | 2023-01-27 18:40 | NUR ---
MS RN CLOSING NOTE PATIENT IN BED WATCHING TV. A/O TIMES 3-4. AMHARIC SPEAKING. ABLE TO MAKE NEEDS KNOWN. NO PAIN NOTED AT THIS TIME. NO SOB NOTED. ON ROOM AIR AND TOLERATING WELL. PATIENT IS ON ZULUAGA CATHETER DRAINING YELLOW URINE. IV ACCESS ON THE LFA G# 20 INTACT, PATENT AND RUNNING NS AT 75 ML/HR. ALL DUE MEDS GIVEN. SAFETY MEASURES IN PLACE. BED LOCKED IN THE LOWEST POSITION. CALL LIGHT AND TABLE WITHIN REACH. SIDE RAILS UP X2. BED ALARM ON. WILL ENDORSE TO THE MANAGER R D NURSE FOR VIDYA
--- NOTE | 2023-01-27 19:30 | NUR ---
noc rn opening received patient eating, son at bed side. no s/s of apparent distress in room air. screaming of pain. patient has rt. hand #22g, fluid was on standby. choi draining via gravity clear, dark yellow urine. safety in place-- bed in lowest, locked position, call light within reach, side rails up X3. will continue with patient's plan of care.
--- NOTE | 2023-01-27 19:39 | NUR ---
noc rn note- pain management Patient was screaming of pain in her abdomen. Given [place] 10 as ordered PRN. will re-assess.
[2023-01-27 20:00] VITALS: BP 135/62
[2023-01-27] MEDS: CIPROFLOXACIN HCL 500 MG TABLET PO SCH (21:11)
--- NOTE | 2023-01-27 21:14 | NUR ---
noc rn note- OMNICELL DISCREPANCY Took 2 tabs of cipro instead of 1, made charge nurse Ann aware. Had to open the Cipro door again in the omnicell to return and skip the item to cancel transaction. 1 tab of cipro returned.
[2023-01-27] MEDS: *INSULIN REGULAR(HUMULIN R)HUM 100 UNIT/ML VIAL SQ PRN (22:11)
[2023-01-28] MEDS: IV NS 0.9% 1,000 ML IV PRN (00:11)
[2023-01-28] MEDS: BLOOD SUGAR DIAGNOSTIC 1 EACH STRIP VI SCH ×4 (06:38→22:00)
[2023-01-28] MEDS: INSULIN REGULAR, HUMAN 100 UNIT/ML 3 ML VIAL SQ PRN ×3 (06:38→18:36)
--- NOTE | 2023-01-28 06:43 | NUR ---
noc rn closing note Patient in bed with eyes closed, easy to arouse. no s/s of apparent distress in room air. pain managed with medication. IV ns running @75mls/hr on right hand #22g. all needs attended. all scheduled medications administered. safety kept in place throughout shift. choi draining via gravity. will endorse to morning shift rn for continuity of patient care.
[2023-01-28 06:56] LABS: BASOPHILS # (AUTO) 0.1 K/uL (0.0-0.2); BASOPHILS % (AUTO) 0.7 % (0.0-2.0); EOSINOPHILS % (AUTO) 1.2 % (0.0-6.0); HEMATOCRIT 29 % (33-45); HEMOGLOBIN 9.3 g/dL (11.5-14.8); LYMPHOCYTES # (AUTO) 1.2 K/uL (0.8-4.8); LYMPHOCYTES % (AUTO) 9.7 % (20.0-44.0); MEAN CORPUSCULAR HGB CONC 32 g/dl (31.0-36.0); MEAN CORPUSCULAR VOLUME 91 fL (82-100); MONOCYTES # (AUTO) 0.8 K/uL (0.1-1.30); MONOCYTES % (AUTO) 6.8 % (2.0-12.0); NEUTROPHILS # (AUTO) 10.3 K/uL (1.8-8.9); NEUTROPHILS % (AUTO) 81.6 % (43.0-81.0); PLATELET COUNT (AUTO) 375 K/uL (150-450); RED BLOOD CELL COUNT(AUTO) 3.21 MIL/uL (4.0-5.2); WHITE BLOOD COUNT (AUTO) 12.6 K/uL (4.3-11.0)
[2023-01-28 07:00] VITALS: BP 142/68
--- NOTE | 2023-01-28 07:44 | NUR ---
MS RN OPENING NOTES PATIENT AWAKE IN BED. PATIENT IS A/O TIMES 2-3. LATVIAN SPEAKING. ABLE TO MAKE NEEDS KNOWN. NO PAIN NOTED AT THIS TIME. NO SOB NOTED. ON ROOM AIR AND TOLERATING WELL. PATIENT IS ON ZULUAGA CATHETER. IV ACCESS ON THE LFA G# 20 INTACT, PATENT AND RUNNING NS AT 75 ML/HR. ALL SAFETY MEASURES IN PLACE. BED LOCKED IN THE LOWEST POSITION. CALL LIGHT AND TABLE IN EASY REACH. SIDE RAILS UP X2. BED ALARM ON. WILL CONTINUE TO MONITOR PATIENT.
[2023-01-28] MEDS: GLUCERNA SHAKE 237 ML CAN PO SCH ×3 (08:12→17:42)
[2023-01-28] MEDS: ASPIRIN EC 81 MG TABLET.DR PO SCH (08:13)
[2023-01-28] MEDS: FLUCONAZOLE (100 MG) 100 MG TABLET PO SCH (08:13)
[2023-01-28] MEDS: METOPROLOL SUCCINATE 50 MG TAB.SR.24H PO SCH (08:13)
[2023-01-28] MEDS: CLOTRIMAZOLE/BETAMETASONE DIPROPIONATE 15 GM TUBE TP SCH ×2 (08:15→16:32)
[2023-01-28] MEDS: ERGOCALCIFEROL (VITAMIN D 2) 50,000 UNIT CAPSULE PO SCH (08:16)
[2023-01-28] MEDS: CIPROFLOXACIN HCL 500 MG TABLET PO SCH ×2 (08:18→21:44)
[2023-01-28] MEDS: BENAZEPRIL HCL 20 MG TABLET PO SCH (08:19)
[2023-01-28 09:03] LABS: CALCIUM, SERUM 8.4 mg/dL (8.5-10.1); CREATININE 0.9 mg/dL (0.6-1.3); POTASSIUM 4.3 mmol/L (3.5-5.1)
[2023-01-28] MEDS ORDERED: IOHEXOL-300 100 ML VIAL IV ONE (12:28)
[2023-01-28] MEDS ORDERED: IV NS 0.9% 250 ML IV ONE (12:29)
[2023-01-28] MEDS: ONDANSETRON HCL/PF 4 MG/2 ML VIAL IVP PRN (15:45)
--- NOTE | 2023-01-28 15:46 | NUR ---
RN NOTE PATIENT COMPLAINED THAT SHE'S NAUSEOUS. ASKED FOR MEDICINE. PRN ONDANSETRON GIVEN. WILL CONTINUE TO MONITOR PATIENT.
[2023-01-28 16:00] VITALS: BP 145/93
--- NOTE | 2023-01-28 18:15 | NUR ---
RN NOTE DR. BAXTER ORDERED TO GIVE LASIX 40MG AND GIVE THE OTHER 40 MG AFTER 4 HOURS. DC THE ORDER AFTER THE 2ND 40MG OF LASIX.
[2023-01-28] MEDS: MORPHINE SULFATE INJ 2 MG/ML DISP.SYRIN IV PRN (18:31)
--- NOTE | 2023-01-28 18:32 | NUR ---
RN NOTE PATIENT COMPLAINED OF PAIN ALL OVER THE ABDOMEN. MORPHINE GIVEN 1MG. DISPOSED REMAINING 1MG OF MORPHINE AND VERONICA YOUNG RN WITNESSED IT. WILL CONTINUE TO MONITOR PATIENT.
[2023-01-28] MEDS: FUROSEMIDE 20 MG/2 ML VIAL IV SCH ×2 (18:33→21:44)
--- NOTE | 2023-01-28 19:25 | NUR ---
RN NOTES TELEPHONE CONSENT FOR RIGHT SIDED THORACENTESIS WAS DONE. SPOKE TO PATIENT SON CIARRA REA, PHONE NUMBER [phone] AND AGREED FOR CONSENT OF THE PROCEDURE. WITNESSED BY VERONICA YOUNG RN.
--- NOTE | 2023-01-28 19:42 | NUR ---
MS RN CLOSING NOTE PATIENT IN BED WATCHING TV. A/O TIMES 2-3. HUNGARIAN SPEAKING. ABLE TO MAKE NEEDS KNOWN. NO PAIN NOTED AT THIS TIME. NO SOB NOTED. ON ROOM AIR AND TOLERATING WELL. PATIENT IS ON ZULUAGA CATHETER DRAINING YELLOW URINE. WITH BILATERAL ARMS EDEMA, BILATERAL FEET NON PITTING EDEMA IV ACCESS ON THE LFA G# 20 SL INTACT AND PATENT. ALL DUE MEDS GIVEN. SAFETY MEASURES IN PLACE. BED LOCKED IN THE LOWEST POSITION. CALL LIGHT AND TABLE WITHIN REACH. SIDE RAILS UP X2. BED ALARM ON. WILL ENDORSE TO THE ELECTRICAL INTEGRATOR NURSE FOR VIDYA
--- NOTE | 2023-01-28 19:47 | NUR ---
MS RN OPENING NOTES: RECEIVED PATIENT AWAKE IN BED, BED IN LOW POSITION CALL LIGHTS WITHIN REACH, NOM COMPLAIN OF PAIN AND DISCOMFORT AT THIS TIME, ON O2 INHALATION AT 2LPM SATURATING WELL, NO SOB WAS OBSERVED, PATIENT TO REMAIN 30-45 DEGREE UPRIGHT, ON ZULUAGA CATHETER-50CC URINE OUTPUT, CRUSH MEDICATION, KEPT CLEAN AND DRY ALL NEEDS MET WILL CONTINUE TO MONITOR.
[2023-01-28 20:00] VITALS: BP 127/62
--- NOTE | 2023-01-28 22:50 | NUR ---
RN NOTES; BLOOD SUGAR-171/ NO INSULIN GIVEN PER SLIDING SCALE, PATIENT DOES NOT EAT MUCH DURING DINNER TIME AND BIT SLEEPY DURING ENDORSEMENT, WILL CONTINUE TO MONITOR.
[2023-01-29] MEDS: IV NS 0.9% 1,000 ML IV PRN (05:38)
--- NOTE | 2023-01-29 06:25 | NUR ---
RN NOTES: BLOOD SUGAR-137/ NOM INSULIN GIVEN PATIENT IS NOT EATING MUCH WILL CONTINUE TO MONITOR
--- NOTE | 2023-01-29 06:29 | NUR ---
323-2 RN CLOSING NOTES: PATIENT SLEEP IN BED COMFORTABLY, AROUSABLE TO VERBAL AND TACTILE STIMULI, BED IN LOW POSITION CALL LIGHTS WITHIN REACH, NO COMPLAIN OF PAIN AND DISCOMFORT AT THIS TIME ON O2 INHALATION AT 2LPM SATURATING WELL, NO SOB WAS OBSERVED, IV LINE AT RIGHT HAND #20 HOLD IV FOR NOW DUE TO FLUID RETENTION IN LUNGS, HOB TO REMAIN UPRIGHT 45 DEGREE FOR LUNG EXPANSION, PATIENT KEPT CLEAN AND DRY ALL NEEDS MET ENDORSE TO INCOMING SHIFT.
[2023-01-29] MEDS: BLOOD SUGAR DIAGNOSTIC 1 EACH STRIP VI SCH ×4 (06:36→22:19)
[2023-01-29 08:00] VITALS: BP 142/74
[2023-01-29] MEDS: GLUCERNA SHAKE 237 ML CAN PO SCH ×3 (08:39→18:23)
[2023-01-29] MEDS: ASPIRIN EC 81 MG TABLET.DR PO SCH (08:39)
[2023-01-29] MEDS: CLOTRIMAZOLE/BETAMETASONE DIPROPIONATE 15 GM TUBE TP SCH ×2 (08:39→18:38)
[2023-01-29] MEDS: CIPROFLOXACIN HCL 500 MG TABLET PO SCH ×2 (08:39→21:10)
[2023-01-29] MEDS: FLUCONAZOLE (100 MG) 100 MG TABLET PO SCH (08:40)
[2023-01-29] MEDS: BENAZEPRIL HCL 20 MG TABLET PO SCH (08:40)
[2023-01-29] MEDS: METOPROLOL SUCCINATE 50 MG TAB.SR.24H PO SCH (08:41)
[2023-01-29] MEDS: FUROSEMIDE 100 MG/10 ML VIAL IV SCH ×3 (10:14→18:23)
[2023-01-29 10:45] LABS: BASOPHILS # (AUTO) 0.3 K/uL (0.0-0.2); BASOPHILS % (AUTO) 1.7 % (0.0-2.0); EOSINOPHILS % (AUTO) 0.5 % (0.0-6.0); HEMATOCRIT 29 % (33-45); HEMOGLOBIN 9.6 g/dL (11.5-14.8); LYMPHOCYTES # (AUTO) 0.9 K/uL (0.8-4.8); LYMPHOCYTES % (AUTO) 4.6 % (20.0-44.0); MEAN CORPUSCULAR HGB CONC 33 g/dl (31.0-36.0); MEAN CORPUSCULAR VOLUME 89 fL (82-100); MONOCYTES # (AUTO) 0.9 K/uL (0.1-1.30); MONOCYTES % (AUTO) 4.8 % (2.0-12.0); NEUTROPHILS # (AUTO) 17.4 K/uL (1.8-8.9); NEUTROPHILS % (AUTO) 88.4 % (43.0-81.0); PLATELET COUNT (AUTO) 455 K/uL (150-450); RED BLOOD CELL COUNT(AUTO) 3.27 MIL/uL (4.0-5.2); WHITE BLOOD COUNT (AUTO) 19.7 K/uL (4.3-11.0)
--- NOTE | 2023-01-29 10:45 | NUR ---
UNABLE TO DO THORACENTESIS,WENDY.FLUID SITES TOO CLOSE TO LUNGS.DR. BAXTER,SIMONA MUÑOZ AND DR. BEGUM NOTIFIED.
--- NOTE | 2023-01-29 11:00 | NUR ---
LOTRISONE TO IRITATED SKIN.
[2023-01-29 11:03] LABS: CALCIUM, SERUM 8.3 mg/dL (8.5-10.1); CREATININE 1.1 mg/dL (0.6-1.3); POTASSIUM 4.6 mmol/L (3.5-5.1)
[2023-01-29 11:11] LABS: ALBUMIN 2.1 g/dL (3.4-5.0); BILIRUBIN,TOTAL 0.4 mg/dL (0.2-1.0); MAGNESIUM 1.5 mg/dL (1.8-2.4); PHOSPHORUS 3.6 mg/dL (2.5-4.9); TOTAL PROTEIN, SERUM 6.3 g/dL (6.4-8.2)
[2023-01-29] MEDS: INSULIN REGULAR, HUMAN 100 UNIT/ML 3 ML VIAL SQ PRN ×2 (12:54→18:26)
[2023-01-29 16:00] VITALS: BP 147/71
[2023-01-29] MEDS ORDERED: MAGNESIUM OXIDE 400 MG TABLET PO ONE (17:30)
--- NOTE | 2023-01-29 18:30 | NUR ---
GIVEN MG. FOR LOW BLOOD LEVEL.GIVEN LASIX IV X3 PER DR. BAXTER.GIVEN MOM FOR CONSTIPATION.O2 ON CONTINUALLY.EASE OF BREATHING AFTER LASIX.
--- NOTE | 2023-01-29 19:45 | NUR ---
MS CAR MECHANIC HELPER INITIAL NOTES Received report from am nurse Quin and seen patient in her bed resting with eyes closed but arouse easily, not in any acute distress noted, respiration even and non-labored, skin warm and dry to touch, Jackson to gravity with clear yellow output noted. Kept her warm and comfortable at all times. Bed in low and lock in position with side rails x2 up and place call light at reach. will continue monitoring.
[2023-01-29 20:00] VITALS: BP 137/67
[2023-01-29] MEDS: *INSULIN REGULAR(HUMULIN R)HUM 100 UNIT/ML VIAL SQ PRN (22:26)
--- NOTE | 2023-01-30 02:22 | NUR ---
ms director of assessment notes Pt sleeping comfortably in bed without any acute distress noted. Respiration even and non-labored .kept her warm and comfortable at all times.
[2023-01-30] MEDS: HYDROCODONE/APAP 10/325MG TABLET PO PRN ×2 (04:17→21:38)
--- NOTE | 2023-01-30 04:42 | NUR ---
ms gwen notes patient complaint of lower back and lower abdominal pain , bowel sounds present and soft to touch. norco tablet given po as ordered . reposition her for comfort . will continue monitoring.
[2023-01-30] MEDS: BLOOD SUGAR DIAGNOSTIC 1 EACH STRIP VI SCH ×4 (05:55→21:33)
[2023-01-30] MEDS: INSULIN REGULAR, HUMAN 100 UNIT/ML 3 ML VIAL SQ PRN ×4 (06:07→21:41)
[2023-01-30 06:12] LABS: BASOPHILS % (AUTO) 0.3 % (0.0-2.0); EOSINOPHILS % (AUTO) 0.3 % (0.0-6.0); HEMATOCRIT 29 % (33-45); HEMOGLOBIN 9.5 g/dL (11.5-14.8); LYMPHOCYTES # (AUTO) 1.2 K/uL (0.8-4.8); LYMPHOCYTES % (AUTO) 8.3 % (20.0-44.0); MEAN CORPUSCULAR HGB CONC 33 g/dl (31.0-36.0); MEAN CORPUSCULAR VOLUME 89 fL (82-100); MONOCYTES % (AUTO) 6.4 % (2.0-12.0); NEUTROPHILS # (AUTO) 12.7 K/uL (1.8-8.9); NEUTROPHILS % (AUTO) 84.7 % (43.0-81.0); PLATELET COUNT (AUTO) 403 K/uL (150-450); RED BLOOD CELL COUNT(AUTO) 3.25 MIL/uL (4.0-5.2)
[2023-01-30 07:04] LABS: ALANINE AMINOTRANSFERASE 53 U/L (12-78); ALKALINE PHOSPHATASE 106 U/L (46-116); ASPARTATE AMINOTRANSFERASE 20 U/L (15-37); BILIRUBIN,TOTAL 0.5 mg/dL (0.2-1.0); CALCIUM, SERUM 8.7 mg/dL (8.5-10.1); CARBON DIOXIDE 27 mmol/L (21-32); CHLORIDE 101 mmol/L (98-107); CREATININE 1.1 mg/dL (0.6-1.3); GLUCOSE 207 mg/dL (74-106); MAGNESIUM 1.7 mg/dL (1.8-2.4); PHOSPHORUS 3.7 mg/dL (2.5-4.9); POTASSIUM 4.3 mmol/L (3.5-5.1); SODIUM SERUM 136 mmol/L (136-145); TOTAL PROTEIN, SERUM 6.2 g/dL (6.4-8.2); UREA NITROGEN, BLOOD 23 mg/dL (7-18)
--- NOTE | 2023-01-30 07:16 | NUR ---
MS SLEEVE BASTER CLOSING NOTES PT SLEEPING COMFORTABLY IN BED AFTER PAIN MEDICATION GIVEN EARLIER. NOT IN ANY ACUTE DISTRESS NOTED. KEPT HER WARM AND COMFORTABLE AT ALL TIMES. BLOOD SUGAR CHECKED DONE 208, INSULIN 6 UNITS GIVEN ORDERED. NO SIGNS OF HYPO/HYPER GLYCEMIA NOTED. BED IN LOW AND LOCK IN POSITION WITH SIDE RAILS X2 AND BED ALARM SET UP FOR SAFETY. ENDORSE TO AM NURSE LYON FOR CONTINUITY OF CARE. PLACE CALL LIGHT AT REACH.
--- NOTE | 2023-01-30 07:30 | NUR ---
RN OPENING NOTES: RECEIVED PATIENT AWAKE IN BED, A/O X3-4, CONFUSED AT TIMES, ON O2 2LPM VIA NC SATURATING WELL, NO SOB, NO DISTRESS NOTED, BREATHING EVEN AND UNLABORED. PATIENT ON 30-45 DEGREE UPRIGHT POSITION. HAS IV ACCESS RIGHT HAND #20G SL, PATENT, FLUSHING WELL. ON ZULUAGA CATHETER, DRAINING WELL. SAFETY MEASURES IN PLACE WITH BED IN LOWEST LOCKED POSITION. SIDE RAILS UP. CALL LIGHT AND TRAY WITHIN EASY REACH. WILL CONTINUE TO MONITOR THE PATIENT THROUGHOUT THE SHIFT.
[2023-01-30 08:00] VITALS: BP 122/55
[2023-01-30] MEDS: GLUCERNA SHAKE 237 ML CAN PO SCH ×3 (09:08→16:27)
[2023-01-30] MEDS: BENAZEPRIL HCL 20 MG TABLET PO SCH (09:08)
[2023-01-30] MEDS: ASPIRIN EC 81 MG TABLET.DR PO SCH (09:08)
[2023-01-30] MEDS: CIPROFLOXACIN HCL 500 MG TABLET PO SCH ×2 (09:08→21:32)
[2023-01-30] MEDS: FLUCONAZOLE (100 MG) 100 MG TABLET PO SCH (09:08)
[2023-01-30] MEDS: METOPROLOL SUCCINATE 50 MG TAB.SR.24H PO SCH (09:09)
[2023-01-30] MEDS: CLOTRIMAZOLE/BETAMETASONE DIPROPIONATE 15 GM TUBE TP SCH ×2 (09:16→16:27)
[2023-01-30] MEDS: Magnesium 1GM/D5W 100ML PREMIX 100 ML IV SCH ×2 (09:25→10:38)
[2023-01-30] MEDS: FUROSEMIDE 40 MG/4 ML VIAL IV SCH ×3 (09:49→16:27)
[2023-01-30] MEDS ORDERED: POLYETHYLENE GLYCOL 3350 17 GM POWD.PACK PO PRN (14:30)
[2023-01-30 16:00] VITALS: BP 121/59
[2023-01-30] MEDS ORDERED: NA PHOS,M-B/NA PHOS,DI-BA 1 EA ENEMA RC ONE (16:00)
[2023-01-30 17:36] VITALS: BP 121/59
--- NOTE | 2023-01-30 19:15 | NUR ---
MS GINA INITIAL NOTES RECEIVED PATIENT RESTING IN BED WITH EYES CLOSED BUT AROUSE EASILY , PATIENT IS A/O TIMES 2. ARABIC SPEAKING , UNDERSTOOD AND SPEAK SOME PASHTO. ABLE TO MAKE NEEDS KNOWN. NO PAIN NOTED. NO SOB NOTED. ON O2 INHALATION VIA NASAL CANNULA , O2 SAT NOTED 100%. PATIENT IS ON ZULUAGA CATHETER. HEPLOCK ON HER RIGHT PATENT AND INTACT. ALL SAFETY MEASURES IN PLACE. BED LOCKED IN THE LOWEST POSITION. CALL LIGHT AND TABLE IN EASY REACH. SIDE RAILS UP TIMES 2. BED ALARM ON. WILL CONTINUE TO MONITOR CLOSELY.
--- NOTE | 2023-01-30 19:26 | NUR ---
RN CLOSING NOTES: PATIENT AWAKE IN BED, A/O X3-4, CONFUSED AT TIMES, ON O2 2LPM VIA NC SATURATING WELL, NO SOB, NO DISTRESS NOTED, BREATHING EVEN AND UNLABORED. PATIENT ON 30-45 DEGREE UPRIGHT POSITION. HAS IV ACCESS RIGHT HAND #20G SL, PATENT, FLUSHING WELL. ON ZULUAGA CATHETER, DRAINING WELL WITH OUTPUT OF 800 ML. ALL NEEDS ATTENDED AND ANTICIPATED. DRESSING DONE. SAFETY MEASURES IN PLACE WITH BED IN LOWEST LOCKED POSITION. SIDE RAILS UPX2. CALL LIGHT AND TRAY WITHIN EASY REACH. WILL ENDORSE TO TIRE MECHANIC NURSE
[2023-01-30 20:00] VITALS: BP 132/73
--- NOTE | 2023-01-30 22:00 | NUR ---
MS GINA NOTES BLOOD SUGAR CHECKED DONE 198, 3 UNITS OF INSULIN GIVEN ORDERED. NORCO TABLET PO GIVEN FOR PATIENT ABDOMINAL PAIN, FACIAL GRIMACE NOTED AND TOUCHING HER ABDOMEN , ABDOMEN SOFT TO TOUCH BOWEL SOUNDS PRESENT , NO N.V NOTED WELL. KEPT HER WARM AND COMFORTABLE AT ALL TIMES. WILL CONTINUE MONITORING.
--- NOTE | 2023-01-31 00:31 | NUR ---
MS DURABILITY ENGINEER NOTES PT SLEEPING COMFORTABLY IN BED WITHOUT ANY DISCOMFORT NOTED. RESPIRATION EVEN AND NON-LABORED. KEPT HER WARM AND COMFORTABLE AT ALL TIMES. PLACE CALL LIGHT AT REACH. WILL CONTINUE MONITORING.
[2023-01-31] MEDS: BLOOD SUGAR DIAGNOSTIC 1 EACH STRIP VI SCH ×4 (06:08→21:51)
[2023-01-31] MEDS: INSULIN REGULAR, HUMAN 100 UNIT/ML 3 ML VIAL SQ PRN ×4 (06:11→21:54)
--- NOTE | 2023-01-31 06:45 | NUR ---
MS STADIUM ATTENDANT CLOSING NOTES BLOOD SUGAR CHECKED DONE 167, 3 UNITS OF INSULIN GIVEN THANH SQ ORDERED. NO SIGNS OF HYPO/HYPER GLYCEMIA NOTED. PT REFUSED TO HAVE MORNING CARE DONE , SHE'S DRY AND CLEANED ,ZULUAGA DRAINING WELL WITH CLEAR YELLOW OUTPUT 1600 ML NOTED. STILL NO BOWEL MOVEMENT . NOT IN ANY ACUTE DISTRESS OR ANY DISCOMFORT NOTED . KEPT HER WARM AND COMFORTABLE AT ALL TIMES. BED IN LOW AND LOCK IN POSITION WITH SIDE RAILS X2 UP AND BED ALARM SET FOR SAFETY. PLACE CALL LIGHT AT REACH. WILL ENDORSE TO AM NURSE FOR CONTINUITY OF CARE.
[2023-01-31 07:04] LABS: BASOPHILS % (AUTO) 0.3 % (0.0-2.0); EOSINOPHILS % (AUTO) 1.3 % (0.0-6.0); HEMATOCRIT 28 % (33-45); HEMOGLOBIN 9.3 g/dL (11.5-14.8); LYMPHOCYTES # (AUTO) 1.3 K/uL (0.8-4.8); LYMPHOCYTES % (AUTO) 8.2 % (20.0-44.0); MEAN CORPUSCULAR HGB CONC 33 g/dl (31.0-36.0); MEAN CORPUSCULAR VOLUME 90 fL (82-100); MONOCYTES # (AUTO) 0.8 K/uL (0.1-1.30); NEUTROPHILS # (AUTO) 13.1 K/uL (1.8-8.9); NEUTROPHILS % (AUTO) 85.2 % (43.0-81.0); PLATELET COUNT (AUTO) 383 K/uL (150-450); RED BLOOD CELL COUNT(AUTO) 3.15 MIL/uL (4.0-5.2); WHITE BLOOD COUNT (AUTO) 15.4 K/uL (4.3-11.0)
--- NOTE | 2023-01-31 07:18 | NUR ---
RN OPENING NOTES: RECEIVED PATIENT AWAKE IN BED, A/O X3-4, CONFUSED AT TIMES, ON O2 2LPM VIA NC SATURATING WELL, NO SOB, NO DISTRESS NOTED, BREATHING EVEN AND UNLABORED. PATIENT ON SEMI FOWLERS POSITION, HAS IV ACCESS RIGHT HAND #20G SL, INTACT AND PATENT, FLUSHING WELL. ON ZULUAGA CATHETER, DRAINING WELL. SAFETY MEASURES IN PLACE WITH BED IN LOWEST LOCKED POSITION. SIDE RAILS UP. CALL LIGHT AND TRAY WITHIN EASY REACH. WILL CONTINUE TO MONITOR THE PATIENT.
[2023-01-31 07:41] LABS: ALBUMIN 1.9 g/dL (3.4-5.0); BILIRUBIN,TOTAL 0.5 mg/dL (0.2-1.0); CALCIUM, SERUM 8.5 mg/dL (8.5-10.1); CREATININE 1.1 mg/dL (0.6-1.3); MAGNESIUM 1.7 mg/dL (1.8-2.4); PHOSPHORUS 4.3 mg/dL (2.5-4.9); POTASSIUM 4.5 mmol/L (3.5-5.1); TOTAL PROTEIN, SERUM 5.9 g/dL (6.4-8.2)
[2023-01-31 08:00] VITALS: BP 127/67
[2023-01-31] MEDS: GLUCERNA SHAKE 237 ML CAN PO SCH ×3 (08:07→17:25)
[2023-01-31] MEDS: BENAZEPRIL HCL 20 MG TABLET PO SCH (09:02)
[2023-01-31] MEDS: ASPIRIN EC 81 MG TABLET.DR PO SCH (09:03)
[2023-01-31] MEDS: FLUCONAZOLE (100 MG) 100 MG TABLET PO SCH (09:03)
[2023-01-31] MEDS: METOPROLOL SUCCINATE 50 MG TAB.SR.24H PO SCH (09:03)
[2023-01-31] MEDS: CIPROFLOXACIN HCL 500 MG TABLET PO SCH ×2 (09:03→20:27)
[2023-01-31] MEDS: CLOTRIMAZOLE/BETAMETASONE DIPROPIONATE 15 GM TUBE TP SCH ×2 (09:09→16:37)
[2023-01-31] MEDS ORDERED: MAGNESIUM OXIDE 400 MG TABLET PO ONE (10:00)
[2023-01-31] MEDS ORDERED: MINERAL OIL 133 ML (PYXIS) 1 EA ENEMA RC ONE (10:30)
--- NOTE | 2023-01-31 14:10 | NUR ---
RN NOTES PT C/O ABDOMINAL PAIN AND REQUESTED FOR MORPHINE. COUNTED 15 SYRINGES OF MORPHINE 2MG/1ML AND DISPENSED 1 WITH A REMAINING SYRINGES OF 14 PCS. WAISTED 1MG (0.5ML) AND WITNESS BY MABEL YOUNG.
[2023-01-31] MEDS: MORPHINE SULFATE INJ 2 MG/ML DISP.SYRIN IV PRN (15:07)
[2023-01-31 16:00] VITALS: BP 144/56
--- NOTE | 2023-01-31 16:55 | NUR ---
RN NOTES PATIENT'S O2SAT DROPS TO LOW 87% AT RA AND GOES BACK UP AGAIN TO 99% IN LESS THAN 5 MINS WITH O2 AT 2 LPM VIA NASAL CANNULA.
--- NOTE | 2023-01-31 18:31 | NUR ---
RN CLOSING NOTES RECEIVED PATIENT AWAKE IN BED, A/O X3-4, CONFUSED AT TIMES, ON O2 2LPM VIA NC SATURATING WELL, NO SOB, NO DISTRESS NOTED, BREATHING EVEN AND UNLABORED. PATIENT ON SEMI FOWLERS POSITION, HAS IV ACCESS LEFT WRIST #22G SL, INTACT AND PATENT, FLUSHING WELL. ON ZULUAGA CATHETER, DRAINING WELL WITH AND OUTPUT OF 1800 CLEAR YELLOW URINE, ,SAFETY MEASURES IN PLACE AND MAINTAINED AT ALL TIMES WITH BED IN LOWEST LOCKED POSITION. SIDE RAILS UP, CALL LIGHT AND TRAY WITHIN EASY REACH, SCHEDULED MEDICATIONS ADMINISTERED, PATIENT WAS TURNED AND REPOSITIONED AND TURNED PER PROTOCOL, ALL NEEDS ATTENDED AND ANTICIPATED, WILL ENDORSE TO RESIDENTIAL SALES CONSULTANT NURSE.
--- NOTE | 2023-01-31 19:30 | NUR ---
MS RN OPENING NOTE RECEIVED PATIENT AWAKE IN BED, A/O X 3-4, WITH PERIODS OF CONFUSION; ON 2LPM OXYGEN VIA NASAL CANNULA, BREATHING EVENLY AND NO S/S OF DISTRESS NOTED; PATIENT ON SEMI SHEPHERD'SS POSITION; WITH IV ACCESS LEFT WRIST #22G SALINE LOCK; WITH ZULUAGA CATHETER IN PLACE; SAFETY MEASURES IN PLACE, BED LOCKED IN LOWEST POSITION, SIDE RAILS UP X 2, CALL LIGHT AND TRAY WITHIN EASY REACH; ENCOURAGED VERBALIZATION OF NEEDS; WILL CONTINUE TO MONITOR THROUGHOUT SHIFT
[2023-01-31 20:00] VITALS: BP 125/62
[2023-02-01] MEDS: HYDROCODONE/APAP 10/325MG TABLET PO PRN (03:22)
--- NOTE | 2023-02-01 03:42 | NUR ---
MS RN NOTE NOTED PATIENT TO BE SCREAMING, WITH FACIAL GRIMACING AND GUARDING MOVEMENT. VERBALIZED PAIN ON HER LOWER ABDOMEN. ADMINISTERED NORCO PRN ORDERED AT 0322H, PATIENT TOLERATED WELL. WILL CONTINUE TO MONITOR
[2023-02-01 05:51] LABS: BASOPHILS # (AUTO) 0.1 K/uL (0.0-0.2); BASOPHILS % (AUTO) 0.3 % (0.0-2.0); EOSINOPHILS % (AUTO) 0.9 % (0.0-6.0); HEMATOCRIT 29 % (33-45); HEMOGLOBIN 9.2 g/dL (11.5-14.8); LYMPHOCYTES # (AUTO) 1.9 K/uL (0.8-4.8); LYMPHOCYTES % (AUTO) 11.6 % (20.0-44.0); MEAN CORPUSCULAR HGB CONC 32 g/dl (31.0-36.0); MEAN CORPUSCULAR VOLUME 90 fL (82-100); MONOCYTES # (AUTO) 0.9 K/uL (0.1-1.30); MONOCYTES % (AUTO) 5.8 % (2.0-12.0); NEUTROPHILS # (AUTO) 13.1 K/uL (1.8-8.9); NEUTROPHILS % (AUTO) 81.4 % (43.0-81.0); PLATELET COUNT (AUTO) 373 K/uL (150-450); WHITE BLOOD COUNT (AUTO) 16.1 K/uL (4.3-11.0)
[2023-02-01 06:09] LABS: CALCIUM, SERUM 8.6 mg/dL (8.5-10.1); CREATININE 1.1 mg/dL (0.6-1.3); POTASSIUM 4.8 mmol/L (3.5-5.1)
[2023-02-01] MEDS: BLOOD SUGAR DIAGNOSTIC 1 EACH STRIP VI SCH ×4 (06:30→21:53)
[2023-02-01] MEDS: INSULIN REGULAR, HUMAN 100 UNIT/ML 3 ML VIAL SQ PRN ×3 (06:32→17:12)
--- NOTE | 2023-02-01 06:55 | NUR ---
MS RN CLOSING NOTE PATIENT RESTING IN BED, A/O X 3-4, WITH PERIODS OF CONFUSION; ON 2LPM OXYGEN VIA NASAL CANNULA, BREATHING EVENLY AND NO S/S OF DISTRESS NOTED; PATIENT ON SEMI SHEPHERD'SS POSITION; WITH IV ACCESS LEFT WRIST #22G SALINE LOCK, INTACT AND PATENT; WITH ZULUAGA CATHETER IN PLACE DRAINING TO YELLOW COLORED URINE APPROXIMATELY 950ML; NO COMPLAINTS OF PAIN AND DISCOMFORT AT THIS TIME; SAFETY MEASURES IN PLACE, BED LOCKED IN LOWEST POSITION, SIDE RAILS UP X 2, CALL LIGHT AND TRAY WITHIN EASY REACH; WILL ENDORSE TO AM NURSE FOR VIDYA.
[2023-02-01 07:00] VITALS: BP 113/67
--- NOTE | 2023-02-01 07:00 | NUR ---
MS RN OPENING NOTES: REACHIEVED PT IN BED ASLEEP, EASILY AROUSED WITH STIMULI ALERT AND ORIENTED X 2-3 WITH EPISODES OF CONFUSION, SLOV[place] SPEAKER. IV ACCESS ON LEFT HAND GAUGE 20 PATENT, INTACT AND SALINE LOCKED. DISTENDED ABDOMEN NOTED. ZULUAGA CATHETER PATENT AND INTACT DRAINING CLEAR YELLOW COLORED VIA GRAVITY. SAFETY MEASURES MAINTAINED: BED LOCKED AND IN LOWEST POSITION, SIDE RAILS UP X 2CALL LIGHT IN EASY REACH AND WILL MONITOR PT ACCORDINGLY.
[2023-02-01] MEDS: GLUCERNA SHAKE 237 ML CAN PO SCH ×3 (09:08→17:10)
[2023-02-01] MEDS: METOPROLOL SUCCINATE 50 MG TAB.SR.24H PO SCH (09:10)
[2023-02-01] MEDS: FLUCONAZOLE (100 MG) 100 MG TABLET PO SCH (09:10)
[2023-02-01] MEDS: BENAZEPRIL HCL 20 MG TABLET PO SCH (09:10)
[2023-02-01] MEDS: ASPIRIN EC 81 MG TABLET.DR PO SCH (09:10)
[2023-02-01] MEDS: CIPROFLOXACIN HCL 500 MG TABLET PO SCH (09:11)
[2023-02-01] MEDS: CLOTRIMAZOLE/BETAMETASONE DIPROPIONATE 15 GM TUBE TP SCH ×2 (09:11→17:10)
[2023-02-01] MEDS: FUROSEMIDE 100 MG/10 ML VIAL IV SCH ×3 (10:13→17:09)
[2023-02-01 16:00] VITALS: BP 119/62
--- NOTE | 2023-02-01 18:36 | NUR ---
MS RN CLOSING NOTES: PATIENT IN BED AWAKE, ALERT AND ORIENTED X 2-3 WITH EPISODES OF CONFUSION. NO SOB OR CARDIAC DISTRESS NOTED ON O2 INHALATION @2LPM VIA NC. IV ACCESS ON LEFT HAND HGAUGE 220 PATENT, INTACT AND SALINE LOCKED. NOTED WITH DISTENDED ABDOMEN. ON BLOOD SUGAR MONITORING AND INSULIN ADMINISTRATION PER SL ORDERED. FC INTACT DRAINING CLEAR YELLOW COLORED URINE. SAFETY MEASURES MAINTAINED: BED LOCKED AND IN LOWEST POSITION, SIDERAILS UP X 2 CALL LIGHT IN EASY REACH AND WILL MONITOR PT ACCORDINGLY.
--- NOTE | 2023-02-01 19:28 | NUR ---
MS RN OPENING NOTES RECEIVED PATIENT AWAKE IN BED. PATIENT IS A/O TIMES 2 WITH EPISODES OF CONFUSION. BURKINAN SPEAKER. ABLE TO MAKE NEEDS KNOWN. NO PAIN NOTED. NO SOB NOTED. ON O2 INHALATION VIA NASAL CANNULA , O2 SAT NOTED 96%. PATIENT IS ON ZULUAGA CATHETER IT IS DRAINING YELLOW COLOR URINE VIA GRAVITY. IV ACCESS ON THE LEFT HAND # 20 INTACT AND SL. ALL SAFETY MEASURES IN PLACE. BED LOCKED IN THE LOWEST POSITION. CALL LIGHT AND TABLE IN EASY REACH. SIDE RAILS UP TIMES 2. BED ALARM ON. WILL CONTINUE TO MONITOR CLOSELY.
[2023-02-01 20:00] VITALS: BP 107/53
--- NOTE | 2023-02-01 22:00 | NUR ---
RN NOTES BLOOD SUGAR CHECKED AT 2200 NOTED 158. 2 UNITS INSULIN GIVEN ORDER AND PER SLIDING SCALE.
[2023-02-01] MEDS: *INSULIN REGULAR(HUMULIN R)HUM 100 UNIT/ML VIAL SQ PRN (22:53)
[2023-02-02] MEDS: INSULIN REGULAR, HUMAN 100 UNIT/ML 3 ML VIAL SQ PRN ×3 (06:12→17:38)
[2023-02-02] MEDS: BLOOD SUGAR DIAGNOSTIC 1 EACH STRIP VI SCH ×4 (06:25→21:51)
[2023-02-02 06:31] LABS: BASOPHILS % (AUTO) 0.4 % (0.0-2.0); EOSINOPHILS % (AUTO) 1.4 % (0.0-6.0); HEMATOCRIT 31 % (33-45); LYMPHOCYTES # (AUTO) 2.1 K/uL (0.8-4.8); LYMPHOCYTES % (AUTO) 19.3 % (20.0-44.0); MEAN CORPUSCULAR HGB CONC 33 g/dl (31.0-36.0); MEAN CORPUSCULAR VOLUME 88 fL (82-100); MONOCYTES # (AUTO) 0.8 K/uL (0.1-1.30); MONOCYTES % (AUTO) 7.4 % (2.0-12.0); NEUTROPHILS # (AUTO) 7.7 K/uL (1.8-8.9); NEUTROPHILS % (AUTO) 71.5 % (43.0-81.0); PLATELET COUNT (AUTO) 370 K/uL (150-450); RED BLOOD CELL COUNT(AUTO) 3.47 MIL/uL (4.0-5.2); WHITE BLOOD COUNT (AUTO) 10.8 K/uL (4.3-11.0)
[2023-02-02 06:46] LABS: ALANINE AMINOTRANSFERASE 26 U/L (12-78); ALBUMIN 2.1 g/dL (3.4-5.0); ALKALINE PHOSPHATASE 81 U/L (46-116); ASPARTATE AMINOTRANSFERASE 15 U/L (15-37); BILIRUBIN,TOTAL 0.5 mg/dL (0.2-1.0); CALCIUM, SERUM 9.1 mg/dL (8.5-10.1); CARBON DIOXIDE 32 mmol/L (21-32); CHLORIDE 94 mmol/L (98-107); CREATININE 1.1 mg/dL (0.6-1.3); GLUCOSE 149 mg/dL (74-106); MAGNESIUM 1.7 mg/dL (1.8-2.4); POTASSIUM 3.9 mmol/L (3.5-5.1); SODIUM SERUM 135 mmol/L (136-145); TOTAL PROTEIN, SERUM 6.5 g/dL (6.4-8.2); UREA NITROGEN, BLOOD 31 mg/dL (7-18)
--- NOTE | 2023-02-02 06:48 | NUR ---
MS RN CLOSING NOTES PATIENT AWAKE IN BED. PATIENT IS A/O TIMES 2 WITH EPISODES OF CONFUSION. ROMANIAN SPEAKER. ABLE TO MAKE NEEDS KNOWN. NO PAIN NOTED. NO SOB NOTED. ON O2 INHALATION VIA NASAL CANNULA , O2 SAT NOTED 96%. PATIENT IS ON ZULUAGA CATHETER IT IS DRAINING YELLOW COLOR URINE VIA GRAVITY. URINE OUTPUT NOTED 1808 ML.ALL DUE MEDS GIVEN ORDER. IV ACCESS ON THE LEFT HAND # 20 INTACT AND SL. ALL SAFETY MEASURES IN PLACE. BED LOCKED IN THE LOWEST POSITION. CALL LIGHT AND TABLE IN EASY REACH. SIDE RAILS UP TIMES 2. BED ALARM ON. WILL ENDORSE FOR VIDYA.
--- NOTE | 2023-02-02 07:00 | NUR ---
MS RN OPENING NOTES: RECEIVED PT IN BED ASLEEP, EASILY AROUSED WITH STIMULI ALERT AND ORIENTED X 2-3 WITH EPISODES OF CONFUSION, SOUTH KOREAN SPEAKER. IV ACCESS ON LEFT HAND GAUGE 20 PATENT, INTACT AND SALINE LOCKED.ABDOMEN SOFT AND NON TENDER. ZULUAGA CATHETER PATENT AND INTACT DRAINING CLEAR YELLOW COLORED VIA GRAVITY. SAFETY MEASURES MAINTAINED: BED LOCKED AND IN LOWEST POSITION, SIDE RAILS UP X 2CALL LIGHT IN EASY REACH AND WILL MONITOR PT ACCORDINGLY.
[2023-02-02 08:00] VITALS: BP 117/61
[2023-02-02] MEDS: GLUCERNA SHAKE 237 ML CAN PO SCH ×3 (08:57→17:33)
[2023-02-02] MEDS: BENAZEPRIL HCL 20 MG TABLET PO SCH (08:58)
[2023-02-02] MEDS: FLUCONAZOLE (100 MG) 100 MG TABLET PO SCH (08:58)
[2023-02-02] MEDS: ASPIRIN EC 81 MG TABLET.DR PO SCH (08:58)
[2023-02-02] MEDS: METOPROLOL SUCCINATE 50 MG TAB.SR.24H PO SCH (08:58)
[2023-02-02] MEDS: Magnesium 1GM/D5W 100ML PREMIX 100 ML IV SCH ×2 (09:00→10:07)
[2023-02-02] MEDS: CLOTRIMAZOLE/BETAMETASONE DIPROPIONATE 15 GM TUBE TP SCH ×2 (09:09→17:37)
--- NOTE | 2023-02-02 09:30 | NUR ---
ZULUAGA CATHETER REMOVAL AND PT TOLERATED WELL, PUREWICK ATTACHED TO INTERMITTENT SUCTION.
[2023-02-02] MEDS: HYDROCODONE/APAP 10/325MG TABLET PO PRN (11:52)
--- NOTE | 2023-02-02 11:52 | NUR ---
PAIN MANAGEMENT: PAIN SCALE 7/10 IN HER ABDOMEN. NORCO 5-325 MG/TAB PO GIVEN.
[2023-02-02 16:00] VITALS: BP 125/60
[2023-02-02] MEDS: CALCIUM ACETATE 667 MG CAP/TAB PO SCH (18:11)
--- NOTE | 2023-02-02 18:41 | NUR ---
MS RN CLOSING NOTES: PATIENT IN BED AWAKE, ALERT AND ORIENTED X 2-3 WITH EPISODES OF CONFUSION. NO SOB OR CARDIAC DISTRESS NOTED ON O2 INHALATION @2LPM VIA NC. IV ACCESS ON LEFT HAND GAUGE 220 PATENT, INTACT AND SALINE LOCKED. ABLE TO SEE AND PALPATE PROLAPSE ON PELVIS. ON BLOOD SUGAR MONITORING AND INSULIN ADMINISTRATION PER SL ORDERED. PUREWICK ATTACHED AND DRAINING CLEAR YELLOW COLORED URINE VIA INTERMITTENT WALL SUCTION. SAFETY MEASURES MAINTAINED: BED LOCKED AND IN LOWEST POSITION, SIDERAILS UP X 2 CALL LIGHT IN EASY REACH AND WILL MONITOR PT ACCORDINGLY.ENDORSE TO ACID CONDITIONING WORKER FOR CONTINUITY
[2023-02-02 20:00] VITALS: BP 122/66
--- NOTE | 2023-02-02 20:00 | NUR ---
RN MS OPENING NOTES RECEIVED PATIENT ON BED, ON MODERATE HIGH BACK REST POSITION. HOOKED TO OXYGEN VIA NASAL CANNULA AT 2 LPM SATURATING WELL NO SOB/ NOTED AT THIS TIME. A/O X 2 [place] SPEAKING, WITH EPISODES OF CONFUSIONS NOTED, WITH PURE WICK CONNECTED TO SUCTION MACHINE NOTED URINE OUTPUT. WITH IV ACCESS AT LFA #22G-SL PATENT AND INTACT, NO SWELLING OR INFILTRATION NOTED. TITRATE O2 NEEDED, KEPT PATIENT WARM AND COMFORTABLE, KEPT SIDE RAILS UP X 2 ALL THE TIME, KEPT CALL LIGHT WITHIN AT REACH WILL CONTINUE TO MONITOR.
--- NOTE | 2023-02-02 21:50 | NUR ---
RN MS NOTES PATIENT STARTED TO VERBALIZED PAIN WITH PS OF 9/10, MORPHINE 1MG IV, MEDICATION WASTE IS BEING WITNESS BY (CHARGE NURSE). WILL CONTINUE TO MONITOR.
[2023-02-02] MEDS: MORPHINE SULFATE INJ 2 MG/ML DISP.SYRIN IV PRN (21:51)
[2023-02-02] MEDS: *INSULIN REGULAR(HUMULIN R)HUM 100 UNIT/ML VIAL SQ PRN (22:38)
[2023-02-03 05:54] LABS: BASOPHILS # (AUTO) 0.1 K/uL (0.0-0.2); BASOPHILS % (AUTO) 0.6 % (0.0-2.0); EOSINOPHILS % (AUTO) 1.4 % (0.0-6.0); HEMATOCRIT 29 % (33-45); HEMOGLOBIN 9.4 g/dL (11.5-14.8); LYMPHOCYTES # (AUTO) 1.9 K/uL (0.8-4.8); LYMPHOCYTES % (AUTO) 18.7 % (20.0-44.0); MEAN CORPUSCULAR HGB CONC 33 g/dl (31.0-36.0); MEAN CORPUSCULAR VOLUME 90 fL (82-100); MONOCYTES # (AUTO) 0.8 K/uL (0.1-1.30); MONOCYTES % (AUTO) 7.5 % (2.0-12.0); NEUTROPHILS # (AUTO) 7.3 K/uL (1.8-8.9); NEUTROPHILS % (AUTO) 71.8 % (43.0-81.0); PLATELET COUNT (AUTO) 330 K/uL (150-450); WHITE BLOOD COUNT (AUTO) 10.2 K/uL (4.3-11.0)
[2023-02-03 05:56] LABS: CALCIUM, SERUM 8.9 mg/dL (8.5-10.1); POTASSIUM 4.2 mmol/L (3.5-5.1)
[2023-02-03] MEDS: BLOOD SUGAR DIAGNOSTIC 1 EACH STRIP VI SCH ×3 (06:42→16:55)
[2023-02-03] MEDS: INSULIN REGULAR, HUMAN 100 UNIT/ML 3 ML VIAL SQ PRN ×3 (06:44→16:56)
--- NOTE | 2023-02-03 06:44 | NUR ---
RN MS CLOSING NOTES PATIENT IS IN BED, A/O X 3 WITH EPISODES OF CONFUSION,SAUDI ARABIAN SPEAKING ON MODERATE HIGH BACK REST POSITION. HOOKED TO OXYGEN VIA NASAL CANNULA AT 2 LPM SATURATING WELL NO SOB/ NOTED AT THIS TIME. WITH PURE WICK CONNECTED TO SUCTION MACHINE NOTED URINE OUTPUT. WITH IV ACCESS AT LFA #22G-SL PATENT AND INTACT, NO SWELLING OR INFILTRATION NOTED. TITRATE O2 NEEDED, ALL DUE MEDICATIONS GIVE, ALL NEEDS ATTENDED, TURN PATIENT EVERY 2 HOURS, PAIN WELL MANAGE, KEPT PATIENT WARM AND COMFORTABLE, KEPT SIDE RAILS UP X 2 ALL THE TIME, KEPT CALL LIGHT WITHIN AT REACH. WILL ENDORSED TO AM SHIFT FOR VIDYA.
[2023-02-03 07:00] VITALS: BP 130/59
--- NOTE | 2023-02-03 07:00 | NUR ---
MS RN OPENING NOTES: RECEIVED PT IN BED ASLEEP, EASILY AROUSED WITH STIMULI ALERT AND ORIENTED X 2-3 WITH EPISODES OF CONFUSION, TURKISH SPEAKER. ON O2 INHALATION @ 2LPM VIA NASAL CANNULA. IV ACCESS ON LEFT HAND GAUGE 20 PATENT, INTACT AND SALINE LOCKED.ABDOMEN SOFT AND NON TENDER. PUREWICK ATTACHED PATENT AND INTACT DRAINING CLEAR YELLOW COLORED VIA INTERMITTENT WALL SUCTION. SAFETY MEASURES MAINTAINED: BED LOCKED AND IN LOWEST POSITION, SIDE RAILS UP X 2CALL LIGHT IN EASY REACH AND WILL MONITOR PT ACCORDINGLY.
[2023-02-03] MEDS: GLUCERNA SHAKE 237 ML CAN PO SCH ×3 (08:18→16:55)
[2023-02-03] MEDS: CALCIUM ACETATE 667 MG CAP/TAB PO SCH ×3 (08:18→17:19)
[2023-02-03] MEDS: FLUCONAZOLE (100 MG) 100 MG TABLET PO SCH (08:18)
[2023-02-03] MEDS: ASPIRIN EC 81 MG TABLET.DR PO SCH (08:18)
[2023-02-03] MEDS: BENAZEPRIL HCL 20 MG TABLET PO SCH (08:19)
[2023-02-03 08:20] VITALS: BP 130/59
[2023-02-03] MEDS: METOPROLOL SUCCINATE 50 MG TAB.SR.24H PO SCH (08:20)
[2023-02-03] MEDS: CLOTRIMAZOLE/BETAMETASONE DIPROPIONATE 15 GM TUBE TP SCH ×2 (08:21→16:55)
[2023-02-03] MEDS ORDERED: Blood Sugar Diagnostic VI (12:56)
[2023-02-03] MEDS ORDERED: INSU100V28 SQ (12:56)
[2023-02-03] MEDS ORDERED: CALC667C6 PO (12:56)
[2023-02-03] MEDS ORDERED: ACET325T53 PO (12:56)
[2023-02-03] MEDS ORDERED: NUT.237L45 PO (12:56)
[2023-02-03] MEDS ORDERED: POLY17PO29 PO (12:56)
[2023-02-03] MEDS ORDERED: SIME80TA72 PO (12:56)
[2023-02-03] MEDS ORDERED: *INS REG SQ (12:56)
[2023-02-03] MEDS ORDERED: CLOT15CR5 TP (12:56)
[2023-02-03] MEDS: ACETAMINOPHEN 325 MG TABLET PO PRN (17:20)
--- NOTE | 2023-02-03 18:18 | NUR ---
SMALL LOT OPERATOR NOTES: DISCHARGE PT TO [facility] REPORT GIVEN TO MABEL STONER. PT ACCOMPANIED BY RONA (SON) AND SUPERINTENDENT RADIO COMMUNICATIONS. PT ALERT AND ORIENTED X 2 WITH EPISODES OF CONFUSION AND FORGETFULNESS. NO SOB OR CARDIAC DISTRESS NOTED, PT DENIES PAIN AT THIS TIME. DISCHARGE PACKET GIVEN TO SUPERINTENDENT RADIO COMMUNICATIONS. ALL BELONGINGS TAKEN WITH PT/SON: DENTURES WORE BY PT, CELPHONE AND PATTERN MAKER SECURED TO PLASTIC, UGG SHOES AND FOOD CONTAINER GIVEN TO FAMILY. IV ACCESS REMOVED. IDENTIFICATION BAND IN PLACE. PT LEFT THE UNIT STABLE.
== END 2023-02-03 18:15 | DRG 689 ==
LOC: ER 14:25 → MED 21:35
PROVIDERS: ADMIT Nurse Practitioner Acute Care; ATTEND Nurse Practitioner Acute Care
DX: N30.00 Acute cystitis without hematuria (principal); G93.41 Metabolic encephalopathy; J96.01 Acute respiratory failure with hypoxia; N17.0 Acute kidney failure with tubular necrosis; J90 Pleural effusion, not elsewhere classified; I50.30 Unspecified diastolic (congestive) heart failure; E44.0 Moderate protein-calorie malnutrition; E24.9 Cushing's syndrome, unspecified; E87.1 Hypo-osmolality and hyponatremia; E11.9 Type 2 diabetes mellitus without complications; F03.90 Unspecified dementia, unspecified severity, without behavioral disturbance, psychotic disturbance, mood disturbance, and anxiety; B96.20 Unspecified Escherichia coli [E. coli] as the cause of diseases classified elsewhere; Z20.822 Contact with and (suspected) exposure to COVID-19; Z87.440 Personal history of urinary (tract) infections; I11.0 Hypertensive heart disease with heart failure; Z90.49 Acquired absence of other specified parts of digestive tract; Z88.8 Allergy status to other drugs, medicaments and biological substances; Z79.82 Long term (current) use of aspirin; Z79.4 Long term (current) use of insulin; Z79.84 Long term (current) use of oral hypoglycemic drugs; Z79.899 Other long term (current) drug therapy; K86.9 Disease of pancreas, unspecified; R79.89 Other specified abnormal findings of blood chemistry; I49.5 Sick sinus syndrome; Z95.0 Presence of cardiac pacemaker; Z96.642 Presence of left artificial hip joint; K21.9 Gastro-esophageal reflux disease without esophagitis; N99.3 Prolapse of vaginal vault after hysterectomy; K80.20 Calculus of gallbladder without cholecystitis without obstruction; K59.00 Constipation, unspecified; Q63.8 Other specified congenital malformations of kidney; E88.09 Other disorders of plasma-protein metabolism, not elsewhere classified; I34.0 Nonrheumatic mitral (valve) insufficiency; E83.39 Other disorders of phosphorus metabolism; D64.9 Anemia, unspecified; D72.821 Monocytosis (symptomatic); E78.5 Hyperlipidemia, unspecified; E83.42 Hypomagnesemia; E87.5 Hyperkalemia; F09 Unspecified mental disorder due to known physiological condition; B37.9 Candidiasis, unspecified
CPT/HCPCS: 36415; 71045-TC; 71270-TC; 74018; 74178; 76604-TC; 76770-TC; 80048-TC; 80053-TC; 80076-TC; 81001; 82105; 82272-TC; 82378; 82570-TC; 82607-TC; 82728-TC; 82784; 82962-TC; 83540-TC; 83605-TC; 83690-TC; 83735-TC; 84100-TC; 84155; 84165; 84300-TC; 84439-TC; 84443-TC; 85025-TC; 85610-TC; 86301; 86316; 86334; 87040-TC; 87081-TC; 87086-TC; 93307-TC; 97110-TC; 97530-TC; A4223; C9803; G0378; J0696; J1815; J1940; J2185; J2270; J2405; J3475; J7030; J7040; J7050; J7060; Q9963; Q9967